=== PATIENT | male | born 1950 | race Caucasian/White ===

== ENCOUNTER 2019-01-21 08:50 | Day surgery (SDC) | payer OTHER ==
[2019-01-20 13:36] VITALS: BMI 29.0
[2019-01-21] MEDS ORDERED: MIDAZOLAM HCL 2 MG/2 ML SINGLE DOSE VIAL ONE (10:39)
[2019-01-21] MEDS ORDERED: LIDOCAINE HCL/PF 2% SDV 5ML VIAL ONE (10:39)
[2019-01-21] MEDS ORDERED: ceFAZolin SODIUM 1 GM VIAL ONE (10:40)
[2019-01-21] MEDS ORDERED: SODIUM CHLORIDE 0.9% P/F 10 ML VIAL IJ ONE (10:40)
[2019-01-21] MEDS ORDERED: HYDROmorphone HCl 2 MG/ML VIAL IM ONE (10:44)
[2019-01-21] MEDS ORDERED: ACETAMINOPHEN 325 MG TABLET (FP) PO PRN (10:44)
[2019-01-21] MEDS ORDERED: ePHEDrine SULFATE 50 MG/1 ML AMPULE ONE (10:55)
[2019-01-21] MEDS ORDERED: ESMOLOL HCL 100,000 MCG/10 ML VIAL ONE (10:58)
[2019-01-21] MEDS ORDERED: ceFAZolin SODIUM 1 GM VIAL IVPB ONE (11:03)
--- NOTE | 2019-01-21 11:06 | HP ---
DATE OF ADMISSION: 01/21/2019 DATE OF DICTATION: 01/21/2019 CHIEF COMPLAINT: Patient is a 68-year-old male with history of bilateral scrotal hydroceles. He also has prostatism including frequency, urgency, nocturia, and feelings of incomplete bladder emptying. He underwent a prostate biopsy in 2011 which was benign. Patient does have history of high blood pressure. Also underwent an inguinal hernia repair 10 years earlier. He denies any ethanolism, tobacco, or any allergies. He states that he has painful erections due to bowing of the penis during erection. He also has a tight penile foreskin with evidence of vitiligo and balanitis xerotica obliterans. PHYSICAL EXAMINATION: General: Physical exam revealed a well-developed adult male. Abdomen: Soft. There was no CVA tenderness. Genitourinary: Genitalia revealed bilateral tense scrotal hydroceles. Spermatic cords were isolated in the groin and were within normal limits. Phallus revealed a dry vitiligo foreskin with a scarred, tight frenulum causing a chordee during erection. Patient's prostate was 3+ and slightly firm. Extremities: His extremities revealed full range of motion with no cyanosis, clubbing, or edema. LABORATORY: The patient's PSA as of December 18, 2018, was 9.47. BUN and creatinine were 16/1.1. His testosterone was 226. Urinalysis was positive for blood. IMPRESSION: Impression at present is severe prostatism, phimosis, penile chordee, and balanitis xerotica obliterans, and bilateral tense, tender hydroceles. PLAN: Penoplasty, circumcision, and cystoscopy. Patient will undergo bilateral hemicolectomies at a later date. He is also scheduled to undergo a transrectal ultrasound as well as and ultrasound-guided biopsy. Will follow. Jose [id number]
[2019-01-21] MEDS ORDERED: LIDOCAINE HCL 1%, 10 MG/ML (20ML VIAL) NR ONE (11:09)
[2019-01-21] MEDS ORDERED: BUPIVACAINE HCL/PF (5 MG/ML) 30 ML VIAL IJ ONE (11:09)
[2019-01-21] MEDS ORDERED: BUPIVACAINE HCL/PF 0.5% (5MG/ML) 10 ML VIAL ONE (11:10)
--- NOTE | 2019-01-21 12:02 | OP ---
Operative Note - Note: Operative Date: 01/21/19 Pre-Operative Diagnosis: phimosis, penile chordee, priyanka. testis hydroceles, bph with luts Operation: penoplasty circ. priyanka. hydrocele aspirations and cystoscopy Findings: phimosis penile chordee and bph with [place] and luts priyanka. tense hydroceles Post-Operative Diagnosis: Same as Pre-op Surgeon: Odalys Duarte Anesthesia: General, Local Specimens Removed: scar tissue, penile forskin and hydrocele fluid Estimated Blood Loss (mls): 10 Drains & Tubes with Location: bridger Drains, Volume Out (mls): 0 Blood Volume Replaced (mls): 0 Fluid Volume Replaced (mls): 0 Operative Report Dictated: Yes
[2019-01-21] MEDS ORDERED: ONDANSETRON 4 MG/2 ML VIAL IVPUSH PRN (12:32)
[2019-01-21] MEDS ORDERED: oxyCODONE HCL 5 MG TABLET PO PRN (12:32)
[2019-01-21] MEDS ORDERED: LACTATED RINGERS SOLUTION 1,000 ML IV SCH (12:45)
--- NOTE | 2019-01-21 14:24 | OP ---
DATE OF OPERATION: 01/21/2019 SURGEON: Antonia Mosher MD PREOPERATIVE DIAGNOSIS: Penile chordee, penile phimosis, balanitis xerotica obliterans, bilateral scrotal hydrocele, and benign prostatic hypertrophy with lower urinary tract symptoms. OPERATIVE PROCEDURE: Cystourethroscopy, penoplasty circumcision, and bilateral hydrocele aspiration. ANESTHESIA: General. OPERATIVE REPORT: Under above stated anesthesia, patient was prepped and draped in the usual sterile manner. He was placed in the dorsal lithotomy position. Cystoscopy revealed a normal anterior urethra. Prostatic urethra revealed trilobar hypertrophy of the prostate. There was lateral lobe kissing. The bladder revealed a grade 3 trabeculation. No lesions or calculi were seen. Efflux of urine was clear. The bladder was emptied, the scope was removed. The base of the penis was blocked with 0.25% Marcaine for long-term analgesia. An artificial erection was also created by injecting 100 mL of normal saline into the base of the right corpora via a 25-gauge Angiocath. This revealed bowing of the penis with a 30-degree dorsal chordee. Therefore, a subcoronal incision was made 1 cm below the ko. This was carried down through skin and subcutaneous tissue. The entire penis was degloved using sharp and blunt dissection. The bulbous and pendulous urethra were then lysed off the corpora spongiosum using a Murphy scissors. There appeared to be dysgenetic Colles and dartos fascia. After the entire urethra was lysed off, there appeared to be enough urethral length to reanastomose the tip of the distal urethra to the fossa navicularis. This was performed using 6-0 Vicryl suture ligatures. A repeat artificial erection revealed straightening of the penis. Therefore, excess foreskin was excised in a circumferential manner. Hemostasis from the glans was approximated to hemostasis from the shaft using 5-0 Vicryl suture ligatures. Pressure dressing was applied. No active bleeding was noted. Then, 18-inch Angiocaths were placed into the right and left hydroceles after positive transillumination, approximately 600 mL of cloudy fluid was drained. This was sent for cytology and C& S. Pressure dressing was applied to the scrotum for 20 minutes. Scrotal support with pressure dressing was also kept on the scrotum. Coban was placed on the penile shaft for hemostasis. The patient tolerated the procedure well. He returned to the recovery room in good condition. ANTONIA MOSHER M.D. [id number]
[2019-01-21 14:30] VITALS: BP 119/72; PULSE 72; TEMP 97.4
[2019-01-21] MEDS ORDERED: CEPHALEXIN MONOHYDRATE 500 MG CAPSULE (UD) PO SCH ×2 (14:30→22:00)
--- NOTE | 2019-01-24 15:03 | PATH ---
Cytology Non-Gynecological Report Patient Name: RODRIGUEZ CAIN [facility]. Rec. #: [id number] /Age/Gender: 1950 (Age: 68) / M Account: [id number] Location: [facility] Taken: 01/21/2019 Received: 01/21/2019 Reported: 01/24/2019 Physicians: Odalys Duarte M.D. Specimen(s) Received HYDROCELE ASPIRATION Clinical History Hydrocele Final Diagnosis 'HYDROCELE' ASPIRATION FOR CYTOLOGY: SATISFACTORY FOR EVALUATION. NEGATIVE FOR MALIGNANCY. NUMEROUS SPERMATOZOA IN A BACKGROUND OF PROTEINACEOUS MATERIAL/DEBRIS CONSISTENT WITH SPERMATOCELE. Electronically Signed Wen Hill M.D. Gross Description Approximately 20 cc of yellow fluid received fresh. One cytofunnel prepared and Pap stained. One cellblock prepared.
--- NOTE | 2019-01-24 15:28 | PATH ---
Surgical Pathology Report Patient Name: RODRIGUEZ CAIN Med. Rec. #: [id number] /Age/Gender: 1950 (Age: 68) / M Account: [id number] Location: [facility] Taken: 01/20/2019 Received: 01/21/2019 Reported: 01/24/2019 Physicians: Odalys Duarte M.D. Specimen(s) Received FORESKIN Clinical History Phimosis, balanitis Final Diagnosis FOR[place], EXCISION: GENITAL SKIN WITH FOCAL INTERCELLULAR EDEMA, FOCAL SPONGIOSIS, MODERATE LYMPHOPLASMACYTIC INFILTRATE, AND HYPERKERATOSIS, CONSISTENT WITH LICHEN SCLEROSUS (BALANITIS XEROTICA OBLITERANS). Comment: See concurrent cytology [id number]. Electronically Signed Wen Hill M.D. Gross Description Received in formalin labeled "foreskin," is a 6.5 x 2.1 x 0.4 cm ruiz-brown portion of wrinkled skin, consistent with foreskin. [employer] sections are submitted in one cassette. /01/21/[address] [facility]
== END 2019-01-21 14:52 | disposition home or self-care (01) ==
LOC: JASU-SURG 08:50
PROVIDERS: ATTEND Urology
PROC: 0VTTXZZ Resection of Prepuce, External Approach (ICD-10-PCS; principal; 2019-01-21 10:30)
PROC: 0VNS0ZZ Release Penis, Open Approach (ICD-10-PCS; 2019-01-21 10:30)
DX: N47.1 Phimosis (principal); N48.89 Other specified disorders of penis; N48.0 Leukoplakia of penis; N43.2 Other hydrocele; N40.1 Benign prostatic hyperplasia with lower urinary tract symptoms
CPT/HCPCS: 88108; 88304-TC; 88305-TC; 94760

== ENCOUNTER 2019-07-16 12:48 | Inpatient (IN) | payer OTHER ==
--- NOTE | 2019-07-16 13:09 | PDOC ---
Attending Attestation - Resident Resident Name: Nick Hercules - ED Attending Attestation I have performed the following: I have examined & evaluated the patient, The case was reviewed & discussed with the resident, I agree w/resident's findings & plan, Exceptions are as noted - HPI HPI: 07/16/19 13:34 68yo male with recent dx of lung mass with poss mets. Pt had xray at the end of May which showed a R hilar lung mass with adenopathy. A PET scan and CT scan has shown compression of svc and mets in the lungs with pleural based mass. Pt has seen Dr. Chad Duarte, Dr. Black, and Dr. Gomez. Pt is scheduled for bx of . Pt today with increasing sob, cough- some mild production and low grade temps- last night temp 100.2. Pt denies pleuritic cp. Pt with LE swelling , but DVT study from 2 days ago was neg. Pt also with LE swelling/anasarca- suspect secondary to ca dx. No abd pain. No n/v/d. No dysuria. - Physicial Exam PE: 07/16/19 13:36 Gen: aaox3, tachypnic, tachy lungs: coarse bs b/l heart: +s1s2 tachy abd: soft, nt/nd +bs ext: 3+pitting edema to LE - Medical Decision Making 07/16/19 13:37 a/p: 68yo male with newly dx R lung mass -prior ct showed a post obtructive pna- pt was treated earlier this month with azithromycin -suspect pna again -pt pulse ox improved w 2L nc -pt received flu shot this am -recent duplex ultrasound 2 days ago was neg for dvt -will send labs, cultures, ekg, cxr -pt will need admission for resp distress, sirs, poss pna, sob, edema 07/16/19 14:30 cxr shows R sided pna suspect post - obstructive pna will order abx will admit call placed to dr. duarte wbc not elevated 07/16/19 14:30 low albumin may be cause of swelling 07/16/19 15:01 resident discussed the case with Dr. Duarte who accepts pt to service Heart Score/ECG Review - ECG Intrepretation Comment:: 07/16/19 13:15 sinus tach at 116, nl axis, nl interval, q waves septally which are age indeterminate, no acute st/t wave findings
[2019-07-16] MEDS ORDERED: SODIUM CHLORIDE IV ONE (13:13)
--- NOTE | 2019-07-16 13:13 | PDOC ---
History of Present Illness - General Chief Complaint: Shortness of Breath Stated Complaint: SENT BY DR MOSHER/DIFFICULTY BREATHING Time Seen by Provider: 07/16/19 13:01 History Source: Patient Exam Limitations: No Limitations, Language Barrier - History of Present Illness Initial Comments: Earl Obrien is a 68 yo M w a hx of a large lung mass not officially biopsied or diagnosed as lung cancer and BPH presents to the [facility] er from Dr. Chad Dunham's office because he has been extremely short of breath and is having difficulty breathing. The patient has been undergoing a workup for a probable lung cancer with metastasis. He has had multiple CT and PET scans following his condition. He is set to have a biopsy performed on Thursday. Here in the ER today the patient is acutely short of breath, has a fever, increased cough and sputum production, and is having a hard time moving air into his lungs. Per the family he has been getting much weaker, feels lethargic , cannot eat well, is not sleeping well, and has been losing weight. Patient is also concerned that his ankles and wrists have been swelling up a significant amountin the past [address] notes that the mass is compressing on his superior vena cava which is likely causing the patient to experience SVC syndrome and anasarca. PCP: Dr. Chad Mosher Onc: Dr. Gomez PSH: Penoplasty circ. priyanka. hydrocele aspirations and cystoscopy Social Hx: Former smoke 35+ years ago. Denies current toxic habits Allergies: NKA, NKDA Past History - Past Medical History Allergies/Adverse Reactions: Allergies Allergy/AdvReac Type Severity Reaction Status Date / Time No Known Allergies Allergy Verified 07/16/19 14:12 Home Medications: Ambulatory Orders Metoprolol Succinate 25 mg PO DAILY 01/21/19 Albuterol Sulfate [Proair Hfa] 2 neb IH Q4H 07/16/19 Promethazine HCl [Phenergan Liquid -] 12.5 mg PO Q4H 07/16/19 Cancer: Yes (rt.lung) COPD: No HTN: Yes - Surgical History Abdominal Surgery: Yes (hernia r inguinal) - Immunization History Immunization Up to Date: No - Psycho Social/Smoking Cessation Hx Smoking Status: No Smoking History: Unknown if ever smoked Have you smoked in the past 12 months: No Number of Cigarettes Smoked Daily: 0 Cigars Per Day: 0 Information on smoking cessation initiated: No Hx Alcohol Use: No Drug/Substance Use Hx: No Substance Use Type: None Hx Substance Use Treatment: No Review of Systems - Review of Systems Able to Perform ROS?: Yes Comments:: CONSTITUTIONAL: Present: fever, chills, diaphoresis, generalized weakness, malaise, loss of appetite HEENT: Absent: rhinorrhea, nasal congestion, throat pain, throat swelling, difficulty swallowing, mouth swelling, ear pain, eye pain, visual Changes CARDIOVASCULAR: Present: Chest pain, peripheral edema Absent: syncope, palpitations, irregular heart rate, lightheadedness RESPIRATORY: Present: cough, shortness of breath, dyspnea with exertion, orthopnea, wheezing , hemoptysis Absent: stridor GASTROINTESTINAL: Present: Nausea, vomiting Absent: abdominal pain, abdominal distension, diarrhea, constipation, melena, hematochezia GENITOURINARY: Present: hesitancy Absent: dysuria, frequency, urgency, hematuria, flank pain, genital pain MUSCULOSKELETAL: Absent: myalgia, arthralgia, joint swelling SKIN: Present: Pallor Absent: rash, itching, HEMATOLOGIC/IMMUNOLOGIC: Present: frequent infections Absent: easy bleeding, easy bruising, lymphadenopathy ENDOCRINE: Present: unexplained weight gain, unexplained weight loss Absent: heat intolerance, cold intolerance NEUROLOGIC: Absent: headache, focal weakness or paresthesias, dizziness, unsteady gait, seizure, mental status changes, bladder or bowel incontinence PSYCHIATRIC: Absent: anxiety, depression, suicidal or homicidal ideation, hallucinations. *Physical Exam - Vital Signs Last Vital Signs Temp Pulse Resp BP Pulse Ox 99.9 F H 115 H 16 135/63 90 L 07/16/19 12:52 07/16/19 12:52 07/16/19 12:52 07/16/19 12:52 07/16/19 12:52 - Physical Exam Comments: GENERAL: Patient is pale, volume overloaded in anasarca. Awake and alert. Moderate acute distress. HEENT: + conjunctival pallor. Normocephalic, atraumatic. PERRLA, EOMI. NECK: Supple. Full ROM. CARDIOVASCULAR: Tachycardic rate and regular rhythm. No murmurs, rubs, or gallops. Distal pulses are 2+ and symmetric. PULMONARY: Clear evidence of respiratory distress. Decreased lung sounds on the right. focal crackles on the left. No wheezing or rhonchi. ABDOMINAL: Soft. Non-tender. Non-distended. No rebound or guarding. No organomegaly. Normoactive bowel sounds. MUSCULOSKELETAL Normal range of motion at all joints. No bony deformities or tenderness. No CVA tenderness. EXTREMITIES: 3+ pitting edema in ankles. 2+ edema in wrists. No cyanosis. No clubbing. No calf tenderness. SKIN: Warm and dry. Normal capillary refill. No rashes. No jaundice. NEUROLOGICAL: Alert, awake, appropriate. Cranial nerves 2-12 intact. No deficits to light touch in face, upper extremities and lower extremities. No motor deficits in the in face, upper extremities and lower extremities. Normal speech. Gait is normal without ataxia. PSYCHIATRIC: Cooperative. Good eye contact. Appropriate mood and affect. ED Treatment Course - LABORATORY CBC & Chemistry Diagram: 07/16/19 13:45 07/16/19 13:45 - RADIOLOGY Radiograph Interpretation: CXR: Chest: Shortness of breath Single AP view of the chest is submitted. Since the prior study of 06/16/2019 the right hilar mass is hidden by infiltrate and fluid. The left lung is clear. There is a prominent mediastinum. Correlation recommended. Medical Decision Making - Medical Decision Making Earl Obrien is a 68 yo M w a hx of a large lung mass not officially biopsied or diagnosed as lung cancer and BPH presents to the [facility] er from Dr. Chad Dunham's office because he has been extremely short of breath and is having difficulty breathing. The patient has been undergoing a workup for a probable lung cancer with metastasis. He has had multiple CT and PET scans following his condition. He is set to have a biopsy performed on Thursday. Here in the ER today the patient is acutely short of breath, has a fever, increased cough and sputum production, and is having a hard time moving air into his lungs. Per the family he has been getting much weaker, feels lethargic , cannot eat well, is not sleeping well, and has been losing weight. Patient is also concerned that his ankles and wrists have been swelling up a significant amountin the past [address] notes that the mass is compressing on his superior vena cava which is likely causing the patient to experience SVC syndrome and anasarca. Vital Signs Temp Pulse Resp BP Pulse Ox 99.9 F H 116 H 16 135/63 90 L 07/16/19 12:52 07/16/19 13:22 07/16/19 12:52 07/16/19 12:52 07/16/19 12:52 DDx IBNLT: PNA, PE, lung cancer, SVC syndrome, Sepsis, dehydration, electrolyte/ metabolic disturbance Plan: Labs, Urine, EKG, CXR, +/- CTA PE, Admit to hospital Labs: Low albumin of 2.6. Lactic acidosis of 3.0 Urine: clean EKG: Sinus tach of 116, narrow complexes, normal axis, no hypertrophy, no ST elevations or depressions, no abnormal TWI's, no Q waves, QTc 408, [place] 152 CXR: Chest: Shortness of breath Single AP view of the chest is submitted. Since the prior study of 06/16/2019 the right hilar mass is hidden by infiltrate and fluid. The left lung is clear. There is a prominent mediastinum. Correlation recommended. Disposition: Admit to hospital - Spoke with Dr. Mosher who accepts patient for admission - Dr. Mosher requests this patient be admitted to the ICU over the weekend. I have said I do not believe this patient's airway is threatened and he does not require pressers at the present time. I have told Dr. Mosher that I will call the ICU and ask them to evaluate the patient for ICU admission. If the ICU does not accept the patient he will goto Telemetry. Discharge - Discharge Information Problems reviewed: Yes Clinical Impression/Diagnosis: Respiratory distress, Malignancy Sepsis Qualifiers: Sepsis type: sepsis due to unspecified organism Sepsis acute organ dysfunction status: unspecified Qualified Code(s): A41.9 - Sepsis, unspecified organism Condition: Fair - Admission Yes - Follow up/Referral - Patient Discharge Instructions - Post Discharge Activity
[2019-07-16] MEDS ORDERED: ALBUTEROL SO4 2.5/IPRATROPIUM 0.5 INH SOL 3 ML VIAL.NEB. NEB ONE ×3 (13:14→13:58)
[2019-07-16] MEDS ORDERED: ACETAMINOPHEN 325 MG TABLET (FP) PO ONE (13:15)
[2019-07-16] MEDS ORDERED: ACETAMINOPHEN 325 MG TABLET (FP) ONE (13:50)
[2019-07-16] MEDS ORDERED: SODIUM CHLORIDE 0.9% 500 ML INFUS.BAG IV ONE (13:50)
[2019-07-16 13:58] LABS: BASO % 0.5 % (0-2.0); EOS % 0.4 % (0-4.5); HEMATOCRIT 35.7 % (35.4-49); HEMOGLOBIN 11.7 GM/dL (11.7-16.9); MCH 28.5 pg (25.7-33.7); MCHC 32.6 g/dl (32.0-35.9); MEAN CELL VOLUME 87.3 fl (80-96); MEAN PLT VOLUME 7.3 fl (7.5-11.1); NEUT % 69.1 % (42.8-82.8); PLATELET COUNT 380 K/MM3 (134-434); RBC 4.09 M/mm3 (4.00-5.60); RDW 16.9 % (11.9-15.9); WHITE BLOOD COUNT 9.3 K/mm3 (4.0-10.0)
[2019-07-16 14:00] LABS: VENOUS PC02 42.7 mmHg (38-52); VENOUS PH 7.39 (7.31-7.41)
[2019-07-16 14:04] LABS: VENOUS PO2 < 49 mmHg (28-48)
[2019-07-16 14:11] LABS: INR 1.19 (0.83-1.09); PROTHROMBIN TIME (PATIENT) 14.1 SEC (9.7-13.0)
[2019-07-16 14:14] LABS: ACTIVATED PTT 35.8 SECONDS (25.2-36.5)
[2019-07-16 14:26] LABS: ALBUMIN 2.6 g/dl (3.4-5.0); BILIRUBIN,TOTAL 0.6 mg/dL (0.2-1); BLOOD UREA NITROGEN 17.7 mg/dL (7-18); CALCIUM 8.9 mg/dL (8.5-10.1); N-TERMINAL BNP 131.9 pg/ml (5-125); POTASSIUM 4.2 mmol/L (3.5-5.1); TOT PROT 6.4 g/dl (6.4-8.2)
[2019-07-16] MEDS ORDERED: VANCOMYCIN 1,000 MG in DEXTROSE 5%-WATER - 250 ML IVPB ONE (14:32)
[2019-07-16] MEDS ORDERED: PIPERACILLIN/TAZOB 4.5 GM 4.5 GM in DEXTROSE 5%-WATER 100 ML IVPB ONE (14:32)
[2019-07-16 15:01] LABS: HYALINE CASTS 57 /lpf (0-8); PH,URINE 5.5 (5.0-8.0); URINE APPEARANCE CLOUDY; URINE BILIRUBIN 1+ (NEGATIVE); URINE COLOR DK YELLOW; URINE GLUCOSE (UA) NEGATIVE (NEGATIVE); URINE KETONE TRACE (NEGATIVE); URINE LEUK ESTERASE NEGATIVE (NEGATIVE); URINE NITRITE NEGATIVE (NEGATIVE); URINE PROTEIN 1+ (NEGATIVE); URINE WBC 3 /hpf (0-5)
--- NOTE | 2019-07-16 15:21 | CONSULT ---
Consultation: REQUESTING PROVIDER: CONSULT REQUEST: We have been asked to medically evaluate this patient for Acute respiratory distress in the setting of pneumonia. HISTORY OF PRESENT ILLNESS: This is a 68 y/o M with a past medical hx significant for HLD, AF(on ASA), a suspected lung mass not officially biopsied or diagnosed as lung cancer, and BPH who presented to the [facility] ER from Dr. Chad Duarte's office due to extreme shortness of breath. The patient has been undergoing a workup for probable lung cancer with metastasis. He has had multiple CT and PET scans following his condition. He is set to have a biopsy performed on Thursday by Dr. Butler. In the ER today, the patient was acutely short of breath, had a low grade temp ( 99.9), productive cough of yellow sputum, and was having a hard time moving air into his lungs. Upon my evaluation later on the floors, pt notable for having a headache due to the cough. Pt denies any hemoptysis, chest pain, fevers, chills , night sweats, nausea, vomiting, abdominal pain. Patient is an ex smoker of 30 yrs but quit 15 yrs ago. Pt admits to noticing some mold in his house recently but no change in detergent use or recent new environmental exposure. Pt denies any history of lung disease. Per the family, he has been getting much weaker, feels lethargic, cannot eat well, is not sleeping well, and has been losing weight. Patient is also concerned that his ankles and wrists have been swelling up a significant amount in the past 2 weeks. 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 REVIEW OF SYSTEMS: negative except as above. PHYSICAL EXAMINATION Vital Signs - 24 hr 07/16/19 07/16/19 12:52 13:22 Temperature 99.9 F H Pulse Rate 115 H 116 H Respiratory 16 Rate Blood Pressure 135/63 O2 Sat by Pulse 90 L Oximetry (%) GENERAL: Awake, alert, and fully oriented, in no acute distress satting 96% on 3L NC NECK: supple without JVD, or carotid bruit on exam LUNGS: Breath sounds reduced anteriorly, upon posterior lung auscultation diffuse wheezing appreciated b/l worse in upper more than lower lobes, w/o accessory muscle use, no ronchi, or stridor appreciated. HEART: tachycardic, regular rythym, normal S1 and S2 without murmur, rub or gallop. ABDOMEN: Soft, nontender, not distended, normoactive bowel sounds, no guarding, no rebound. UPPER EXTREMITIES: 2+ pulses, warm, well-perfused. No cyanosis. No clubbing. 1+ peripheral edema. LOWER EXTREMITIES: warm, well-perfused. 3+ peripheral edema. PSYCHIATRIC: Cooperative. Good eye contact. Appropriate mood and affect. SKIN: Warm, dry, no rashes or lesions noted. Laboratory Results - last 24 hr 07/16/19 07/16/19 07/16/19 13:45 13:45 13:45 WBC 9.3 RBC 4.09 Hgb 11.7 Hct 35.7 MCV 87.3 MCH 28.5 MCHC 32.6 RDW 16.9 H Plt Count 380 MPV 7.3 L Absolute Neuts (auto) 6.5 Neutrophils % 69.1 Lymphocytes % 15.0 D Monocytes % 15.0 H Eosinophils % 0.4 D Basophils % 0.5 Nucleated RBC % 0 PT with INR 14.10 H INR 1.19 H PTT (Actin FS) 35.8 VBG pH POC VBG pCO2 POC VBG pO2 VBG HCO3 VBG O2 Sat (Glenn) VBG Base Excess Sodium Potassium Chloride Carbon Dioxide Anion Gap BUN Creatinine Est GFR (CKD-EPI)AfAm Est GFR (CKD-EPI)NonAf Random Glucose Lactic Acid Calcium Total Bilirubin AST ALT Alkaline Phosphatase Troponin I < 0.02 B-Natriuretic Peptide Total Protein Albumin Urine Color Urine Appearance Urine pH Ur Specific Drift Urine Protein Urine Glucose (UA) Urine Ketones Urine Blood Urine Nitrite Urine Bilirubin Urine Urobilinogen Ur Leukocyte Esterase Urine WBC (Auto) Urine Casts (Auto) U Epithel Cells (Auto) Urine Bacteria (Auto) Blood Type Antibody Screen 07/16/19 07/16/19 07/16/19 13:45 13:45 13:45 WBC RBC Hgb Hct MCV MCH MCHC RDW Plt Count MPV Absolute Neuts (auto) Neutrophils % Lymphocytes % Monocytes % Eosinophils % Basophils % Nucleated RBC % PT with INR INR PTT (Actin FS) VBG pH POC VBG pCO2 POC VBG pO2 VBG HCO3 VBG O2 Sat (Glenn) VBG Base Excess Sodium 136 Potassium 4.2 Chloride 101 Carbon Dioxide 25 Anion Gap 10 BUN 17.7 Creatinine 1.0 Est GFR (CKD-EPI)AfAm 88.61 Est GFR (CKD-EPI)NonAf 76.45 Random Glucose 95 Lactic Acid 3.0 H* Calcium 8.9 Total Bilirubin 0.6 AST 18 ALT 21 Alkaline Phosphatase 118 H Troponin I B-Natriuretic Peptide 131.9 H Total Protein 6.4 Albumin 2.6 L Urine Color Urine Appearance Urine pH Ur Specific Drift Urine Protein Urine Glucose (UA) Urine Ketones Urine Blood Urine Nitrite Urine Bilirubin Urine Urobilinogen Ur Leukocyte Esterase Urine WBC (Auto) Urine Casts (Auto) U Epithel Cells (Auto) Urine Bacteria (Auto) Blood Type O POSITIVE Antibody Screen Negative 07/16/19 07/16/19 13:45 14:45 WBC RBC Hgb Hct MCV MCH MCHC RDW Plt Count MPV Absolute Neuts (auto) Neutrophils % Lymphocytes % Monocytes % Eosinophils % Basophils % Nucleated RBC % PT with INR INR PTT (Actin FS) VBG pH 7.39 POC VBG pCO2 42.7 POC VBG pO2 < 49 H VBG HCO3 24.9 VBG O2 Sat (Glenn) 72.8 VBG Base Excess 0.3 Sodium Potassium Chloride Carbon Dioxide Anion Gap BUN Creatinine Est GFR (CKD-EPI)AfAm Est GFR (CKD-EPI)NonAf Random Glucose Lactic Acid Calcium Total Bilirubin AST ALT Alkaline Phosphatase Troponin I B-Natriuretic Peptide Total Protein Albumin Urine Color Dk yellow Urine Appearance Cloudy Urine pH 5.5 Ur Specific Drift 1.034 Urine Protein 1+ H Urine Glucose (UA) Negative Urine Ketones Trace H Urine Blood Negative Urine Nitrite Negative Urine Bilirubin 1+ H Urine Urobilinogen 1.0 Ur Leukocyte Esterase Negative Urine WBC (Auto) 3 Urine Casts (Auto) 57 U Epithel Cells (Auto) 3.0 Urine Bacteria (Auto) 1.0 Blood Type Antibody Screen Active Medications Generic Name Dose Route Start Last Admin Trade Name Freq PRN Reason Stop Dose Admin Vancomycin HCl 1,000 mg/ 250 mls @ 166.667 mls/hr 07/16/19 14:32 Dextrose IVPB 07/16/19 16:01 ONCE ONE Protocol ASSESSMENT/PLAN: CT chest (06/22/19): Probable primary focus of lung carcinoma involving the pleura in the NARAYAN anterolaterally. Multiple metastatic nodules in the lung. Partial RML atelectasis and probable post obstructive pneumonia in the right lung. Extensive mediastinal and right hilar adenopathy with the right hilar mass invading the mediastinum. Significant impingement on the SVC without obvious invasion or obstruction. Encasement of branches of the right pulmonary artery and narrowing/occlusion of right-sided bronchi. Small right pleural effusion. This is a 68 y/o M with a past medical history significant for HLD, AF(on ASA), a suspected lung mass not officially biopsied or diagnosed as lung cancer, and BPH who presents to the [facility] ER from Dr. Chad Duarte's office due to extreme shortness of breath. Neuro - AO X 4 - neurologically intact Pulmonary -> PNA/Lung Mass - CT chest showing probable SVC syndrome due to Rt sided lung mass/enlarged mediastinal LN compression. - CXR- rt hilar mass hidden by fluid/infiltrate and shows widened mediastinum. - pt airway not compromised, continue NC as pt is satting mid to upper 90's on 3L. - pt not on home O2 - Inhaled bronchodilators (Ventolin HFA, albuterol/ipratrop duoneb, ) - continue vancomycin, zosyn for probable post-obstructive PNA - pt not septic at this time as their is no wbc, low grade temp - would continue assessing CBC for any signs of wbc - BC's, urine cx, sputum culture - repeat Lactate until below 2. Cardio -> Hx of AF/HLD - c/w crestor 20 - anasarca likely 2/2 hypoalbuminemia from malnourishment - continue holding ASA for IR procedure thursday - Dr. Linn consulted, recs appreciated - monitor on tele for any events. - toprol XL 20 po for rate control Dispo: Patient does not require ICU management at this time, but we would be happy to come and re-evaluate at any time if needed. Thank you for this consultative opportunity. Visit type - Emergency Visit Emergency Visit: Yes ED Registration Date: 07/16/19 Care time: The patient presented to the Emergency Department on the above date and was hospitalized for further evaluation of their emergent condition. - New Patient This patient is new to me today: Yes Date on this admission: 07/16/19 - Critical Care Critical Care patient: Yes Total Critical Care Time (in minutes): 35 Critical Care Statement: The care of this patient involved high complexity decision making to prevent further life threatening deterioration of the patient 's condition and/or to evaluate & treat vital organ system(s) failure or risk of failure.
[2019-07-16] MEDS ORDERED: VANCOMYCIN 1 GRAM (PRE-DOCKED) 1,000 MG/250 ML BAG IVPB ONE ×2 (15:23→15:24)
[2019-07-16] MEDS ORDERED: PIPERACILLIN/TAZOB 4.5 GM 4.5 GM/100 ML BAG IVPB ONE (15:23)
[2019-07-16] MEDS ORDERED: VANCOMYCIN 500 MG VIAL (RESTRICTED TO ID ONLY) ONE (15:25)
[2019-07-16 15:45] LABS: URINE RBC 6.7 /hpf (0-4)
[2019-07-16] MEDS ORDERED: ALBUTEROL SO4 8 GM HFA INHALER IH PRN (20:09)
[2019-07-16] MEDS ORDERED: ALBUTEROL SO4 2.5/IPRATROPIUM 0.5 INH SOL 3 ML VIAL.NEB. NEB PRN (20:09)
[2019-07-16] MEDS ORDERED: PNEUMOC 13-VAL CONJ-DIP CRM/PF 0.5 ML DISP.SYRIN IM ONE (21:00)
[2019-07-16] MEDS: metoPROLOL SUCCINATE 25 MG TAB.SR.24H (FP) PO SCH (21:07)
[2019-07-16] MEDS: ROSUVASTATIN CA 20 MG TABLET (FP) PO SCH (21:07)
[2019-07-17] MEDS: guaiFENesin/CODEINE 5 ML UNIT-DOSE CUPS PO PRN ×5 (00:13→21:37)
--- NOTE | 2019-07-17 08:28 | HP ---
Admitting History and Physical - Primary Care Physician PCP: christine salas sr - Admission Chief Complaint: presented to my office with sob diff brething weak low grade temp lethargic since 3 days ago no apetite also loss wt ? failing to thrive History Source: Patient, Family Member Limitations to Obtaining History: Poor Historian, Other (diffulty comprehending) - Past Medical History Cardiovascular: Yes: AFIB Renal/: Yes: BPH, UTI Musculoskeletal: Yes: Osteoarthritis - Past Surgical History Past Surgical History: Yes: None - Smoking History Smoking history: Unknown if ever smoked Have you smoked in the past 12 months: No Aproximately how many cigarettes per day: 0 - Alcohol/Substance Use Hx Alcohol Use: No Home Medications - Allergies Allergies/Adverse Reactions: Allergies Allergy/AdvReac Type Severity Reaction Status Date / Time No Known Allergies Allergy Verified 07/16/19 14:12 - Home Medications Home Medications: Ambulatory Orders Metoprolol Succinate 25 mg PO DAILY 01/21/19 Albuterol Sulfate [Proair Hfa] 2 neb IH Q4H 07/16/19 Promethazine HCl [Phenergan Liquid -] 12.5 mg PO Q4H 07/16/19 Family Medical History Family History: Unremarkable Review of Systems - Review of Systems Constitutional: reports: Lethargy, Loss of Appetite, Malaise, Weakness Eyes: reports: No Symptoms HENT: reports: No Symptoms Neck: reports: No Symptoms Cardiovascular: reports: No Symptoms Respiratory: reports: Cough, SOB Gastrointestinal: reports: No Symptoms Genitourinary: reports: No Symptoms Breasts: reports: No Symptoms Reported Integumentary: reports: No Symptoms Neurological: reports: Headache Endocrine: reports: No Symptoms Hematology/Lymphatic: reports: No Symptoms Psychiatric: reports: No Symptoms Physical Examination Vital Signs: Vital Signs Temperature 98.4 F 07/17/19 06:42 Pulse Rate 108 H 07/17/19 06:42 Respiratory Rate 18 07/17/19 06:42 Blood Pressure 133/66 07/17/19 06:42 O2 Sat by Pulse Oximetry (%) 92 L 07/16/19 21:00 Constitutional: Yes: Mild Distress Eyes: Yes: WNL HENT: Yes: WNL Neck: Yes: WNL Cardiovascular: Yes: Pulse Irregular Respiratory: Yes: Diminished, Dullness, Poor Air Entry, SOB Gastrointestinal: Yes: WNL ...Rectal Exam: Yes: Deferred Renal/: Yes: WNL Breast(s): Yes: WNL Musculoskeletal: Yes: Other (priyanka knee pain scale 3) Extremities: Yes: WNL Edema: Yes Edema: LUE: 1+, RUE: 1+, LLE: 3+, RLE: 3+ Peripheral Pulses WNL: Yes Integumentary: Yes: WNL Neurological: Yes: Weakness ...Motor Strength: WNL Psychiatric: Yes: WNL Labs: CBC, BMP 07/16/19 13:45 07/16/19 13:45 Assessment/Plan lung ca w mets? rt supraclavicular mass pnd bx thursday w dr hartley ? pleural eff w ? underling pneumonia? mass rt hilar region ? atbx o2 2 l n/c neb tx prn card and pulmonary consulted no asa or plavix ? may start hepatin for afibb ct chest done will get head abd pelvic to look for mets due to headace no help w meds as out pt and to see if third spacing leg edema? echo also cont all other tx as is
[2019-07-17] MEDS ORDERED: FUROSEMIDE 40 MG/4 ML INJECTABLE VIAL IVPUSH ONE (08:45)
[2019-07-17] MEDS: metoPROLOL SUCCINATE 25 MG TAB.SR.24H (FP) PO SCH (09:20)
[2019-07-17] MEDS: TAMSULOSIN HCL 0.4 MG CAP PO SCH (09:20)
[2019-07-17 09:28] LABS: BASO % 0.5 % (0-2.0); EOS % 0.5 % (0-4.5); HEMATOCRIT 32.8 % (35.4-49); LYMPH % 10.1 % (8-40); MCH 29.2 pg (25.7-33.7); MCHC 33.7 g/dl (32.0-35.9); MEAN CELL VOLUME 86.7 fl (80-96); MEAN PLT VOLUME 7.3 fl (7.5-11.1); MONO % 10.4 % (3.8-10.2); NEUT % 78.5 % (42.8-82.8); PLATELET COUNT 368 K/MM3 (134-434); RBC 3.78 M/mm3 (4.00-5.60); RDW 16.9 % (11.9-15.9); WHITE BLOOD COUNT 9.9 K/mm3 (4.0-10.0)
[2019-07-17 10:08] LABS: ALBUMIN 2.4 g/dl (3.4-5.0); BILIRUBIN,TOTAL 0.8 mg/dL (0.2-1); BLOOD UREA NITROGEN 17.3 mg/dL (7-18); CALCIUM 8.5 mg/dL (8.5-10.1); CREATININE 0.9 mg/dL (0.55-1.3); POTASSIUM 4.4 mmol/L (3.5-5.1); TOT PROT 5.9 g/dl (6.4-8.2)
--- NOTE | 2019-07-17 13:26 | PN ---
Teaching Attending Note Name of Resident: Chad Duarte ATTENDING PHYSICIAN STATEMENT I saw and evaluated the patient. I reviewed the resident's note and discussed the case with the resident. I agree with the resident's findings and plan as documented. SUBJECTIVE: Breathing better today. Still with nonproductive cough. CT chest not read yet but showing increasing size of mass as well as a new right pleural effusion. OBJECTIVE: Vital Signs Period Temp Pulse Resp BP Sys/Clifton Pulse Ox Last 24 Hr 97.8 F-99.0 F 103-116 18-22 112-144/50-71 92-96 Gen: mildly tachypneic at rest Heart: tachycardic, regular Lung: scattered rhonchi Abd: soft, nontender Ext: + edema CBC, BMP 07/17/19 09:00 07/17/19 09:00 Active Medications Albuterol Sulfate (Ventolin Hfa Inhaler -) 2 puff IH Q6H PRN PRN Reason: SHORTNESS OF BREATH Albuterol/Ipratropium (Duoneb -) 1 amp NEB Q6H PRN PRN Reason: SHORTNESS OF BREATH/WHEEZING Last Admin: 07/17/19 00:45 Dose: 1 amp Guaifenesin/Codeine Phosphate (Robitussin Ac -) 10 ml PO Q4H PRN PRN Reason: COUGH Last Admin: 07/17/19 08:38 Dose: 10 ml Metoprolol Succinate (Toprol Xl -) 25 mg PO DAILY [facility] Last Admin: 07/17/19 09:20 Dose: 25 mg Rosuvastatin Calcium (Crestor -) 20 mg PO HS [facility] Last Admin: 07/16/19 21:07 Dose: 20 mg Tamsulosin HCl (Flomax -) 0.4 mg PO DAILY@0830 [facility] Last Admin: 07/17/19 09:20 Dose: 0.4 mg Zolpidem Tartrate (Ambien -) 5 mg PO HS PRN PRN Reason: INSOMNIA ASSESSMENT AND PLAN: Likely Progressive Lung Cancer - suspect small cell lung cancer Pleural Effusion likely malignant r/o SVC syndrome Hyponatremia Lactic Acidosis Atrial Fibrillation Hyperlipidemia - would order thoracentesis for diagnosis - hold all antiplatelets - inhaled bronchodilators - oncology evaluation, will need staging - can monitor off antibiotics given absence of fevers and leukocytosis - rate control - DVT prophylaxis
--- NOTE | 2019-07-17 14:19 | CON.CARD ---
Consult Consult Specialty:: Cardiology Reason for Consultation:: Afib - History of Present Illness History of Present Illness: 68 m with suspected metastatic lung Ca and is scheduled for a biopsy. He is admitted with SOB and cough. In the ast Afib was noted transiently at PCP office. On follow up ECG, it has resolved without known recurrence. He has edema. Telemetry here sows NSR with transient regular SVT - History Source History Provided By: Patient, Medical Record - Past Medical History Cardio/Vascular: Yes: AFIB Renal/: Yes: BPH, UTI Musculoskeletal: Yes: Osteoarthritis - Past Surgical History Past Surgical History: Yes: None - Alcohol/Substance Use Hx Alcohol Use: No - Smoking History Smoking history: Unknown if ever smoked Have you smoked in the past 12 months: No Aproximately how many cigarettes per day: 0 Home Medications - Allergies Allergies/Adverse Reactions: Allergies Allergy/AdvReac Type Severity Reaction Status Date / Time No Known Allergies Allergy Verified 07/16/19 14:12 - Home Medications Home Medications: Ambulatory Orders Metoprolol Succinate 25 mg PO DAILY 01/21/19 Albuterol Sulfate [Proair Hfa] 2 neb IH Q4H 07/16/19 Promethazine HCl [Phenergan Liquid -] 12.5 mg PO Q4H 07/16/19 Review of Systems - Review of Systems Constitutional: reports: Loss of Appetite Eyes: reports: No Symptoms HENT: reports: No Symptoms Neck: reports: No Symptoms Cardiovascular: reports: Shortness of Breath. denies: Chest Pain, Palpitations Respiratory: reports: Cough, SOB Gastrointestinal: reports: No Symptoms Vital Signs: Vital Signs Temperature 99.1 F 07/17/19 14:02 Pulse Rate 107 H 07/17/19 14:02 Respiratory Rate 18 07/17/19 14:02 Blood Pressure 111/56 L 07/17/19 14:02 O2 Sat by Pulse Oximetry (%) 93 L 07/17/19 09:00 Constitutional: Yes: Well Nourished, No Distress Eyes: Yes: Conjunctiva Clear HENT: Yes: Atraumatic, Normocephalic Neck: Yes: Supple, Trachea Midline Respiratory: Yes: Regular Gastrointestinal: Yes: Normal Bowel Sounds Cardiovascular: Yes: Regular Rate and Rhythm JVD: No Carotid Bruit: No Heart Sounds: Yes: S1, S2 Murmur: No: Systolic Murmur, Diastolic Murmur Edema: RUE: 1+, LLE: 1+, RLE: 1+ - Other Data Labs, Other Data: CBC, BMP 07/17/19 09:00 07/17/19 09:00 INR, PTT INR 1.19 (0.83-1.09) H 07/16/19 13:45 Troponin, BNP 07/16/19 07/16/19 13:45 13:45 Troponin I < 0.02 B-Natriuretic Peptide 131.9 H Troponin, BNP 07/16/19 07/16/19 13:45 13:45 Troponin I < 0.02 B-Natriuretic Peptide 131.[address] t changes. Problem List - Problems (1) Malignancy Code(s): C80.1 - MALIGNANT (PRIMARY) NEOPLASM, UNSPECIFIED (2) Respiratory distress Code(s): R06.03 - ACUTE RESPIRATORY DISTRESS Assessment/Plan 68 M with suspected cancer of lung with mets. One bout of Afib was recently diagnosed n the out patient setting and resolved on followup. CHADSVasc score =1. Anticoagulatin is not indicated at this time. Telemetry with transient regular SVT. and would therefore continue with low dose metoprolol. Please get echo.
[2019-07-17] MEDS: ALBUTEROL SO4 2.5/IPRATROPIUM 0.5 INH SOL 3 ML VIAL.NEB. NEB SCH ×2 (16:43→20:15)
--- NOTE | 2019-07-17 16:46 | EKG ---
Test Reason : Blood Pressure : / mmHG Vent. Rate : 115 BPM Atrial Rate : 115 BPM P-R Int : 156 ms QRS Dur : 086 ms QT Int : 308 ms P-R-T Axes : 076 036 064 degrees QTc Int : 426 ms SINUS TACHYCARDIA WITH OCCASIONAL PREMATURE VENTRICULAR COMPLEXES OTHERWISE NORMAL ECG WHEN COMPARED WITH ECG OF 16-JUL-2019 12:56, PREMATURE VENTRICULAR COMPLEXES ARE NOW PRESENT Confirmed by MEME FOLEY, SHILPI ([id number]) on 07/17/2019 4:45:56 PM Referred By: Gloria CASTILLO Confirmed By:SHILPI VALENTINE MD
--- NOTE | 2019-07-17 16:51 | EKG ---
Test Reason : Blood Pressure : / mmHG Vent. Rate : 116 BPM Atrial Rate : 116 BPM P-R Int : 152 ms QRS Dur : 080 ms QT Int : 294 ms P-R-T Axes : 072 011 052 degrees QTc Int : 408 ms SINUS TACHYCARDIA OTHERWISE NORMAL ECG WHEN COMPARED WITH ECG OF 26-JUN-2016 08:58, NO SIGNIFICANT CHANGE WAS FOUND Confirmed by SHILPI VALENTINE MD ([id number]) on 07/17/2019 4:51:50 PM Referred By: Confirmed By:SHILPI VALENTINE MD
[2019-07-17] MEDS: ROSUVASTATIN CA 20 MG TABLET (FP) PO SCH (21:37)
[2019-07-17] MEDS: ZOLPIDEM TARTRATE 5 MG TABLET PO PRN (23:33)
[2019-07-18] MEDS: guaiFENesin/CODEINE 5 ML UNIT-DOSE CUPS PO PRN ×3 (03:01→17:03)
[2019-07-18] MEDS: ALBUTEROL SO4 2.5/IPRATROPIUM 0.5 INH SOL 3 ML VIAL.NEB. NEB SCH ×4 (07:40→20:28)
[2019-07-18 08:14] LABS: BASO % 0.7 % (0-2.0); EOS % 0.7 % (0-4.5); HEMATOCRIT 32.4 % (35.4-49); HEMOGLOBIN 10.9 GM/dL (11.7-16.9); LYMPH % 11.6 % (8-40); MCH 28.9 pg (25.7-33.7); MCHC 33.6 g/dl (32.0-35.9); MEAN CELL VOLUME 86.1 fl (80-96); MEAN PLT VOLUME 7.6 fl (7.5-11.1); MONO % 11.9 % (3.8-10.2); NEUT % 75.1 % (42.8-82.8); PLATELET COUNT 400 K/MM3 (134-434); RBC 3.77 M/mm3 (4.00-5.60); RDW 16.9 % (11.9-15.9); WHITE BLOOD COUNT 9.6 K/mm3 (4.0-10.0)
[2019-07-18 08:57] LABS: BLOOD UREA NITROGEN 25.4 mg/dL (7-18); CALCIUM 8.7 mg/dL (8.5-10.1); CREATININE 1.1 mg/dL (0.55-1.3); POTASSIUM 4.4 mmol/L (3.5-5.1)
[2019-07-18] MEDS: TAMSULOSIN HCL 0.4 MG CAP PO SCH (10:39)
[2019-07-18] MEDS: metoPROLOL SUCCINATE 25 MG TAB.SR.24H (FP) PO SCH (10:39)
--- NOTE | 2019-07-18 11:19 | PN ---
Progress Note, Physician History of Present Illness: pulmonary alert,oob-chair,less dyspneic - Current Medication List Current Medications: Active Medications Albuterol Sulfate (Ventolin Hfa Inhaler -) 2 puff IH Q6H PRN PRN Reason: SHORTNESS OF BREATH Last Admin: 07/18/19 04:30 Dose: 2 puff Albuterol/Ipratropium (Duoneb -) 1 amp NEB RQID [facility] Last Admin: 07/18/19 07:40 Dose: 1 amp Guaifenesin/Codeine Phosphate (Robitussin Ac -) 10 ml PO Q4H PRN PRN Reason: COUGH Last Admin: 07/18/19 10:40 Dose: 10 ml Metoprolol Succinate (Toprol Xl -) 25 mg PO DAILY [facility] Last Admin: 07/18/19 10:39 Dose: 25 mg Rosuvastatin Calcium (Crestor -) 20 mg PO HS [facility] Last Admin: 07/17/19 21:37 Dose: 20 mg Tamsulosin HCl (Flomax -) 0.4 mg PO DAILY@0830 [facility] Last Admin: 07/18/19 10:39 Dose: 0.4 mg Zolpidem Tartrate (Ambien -) 5 mg PO HS PRN PRN Reason: INSOMNIA Last Admin: 07/17/19 23:33 Dose: 5 mg - Objective Vital Signs: Vital Signs Temperature 98.2 F 07/18/19 05:58 Pulse Rate 112 H 07/18/19 05:58 Respiratory Rate 22 H 07/18/19 05:58 Blood Pressure 125/47 L 07/18/19 05:58 O2 Sat by Pulse Oximetry (%) 92 L 07/17/19 21:00 Constitutional: Yes: Well Nourished, Calm Eyes: Yes: WNL HENT: Yes: WNL Neck: Yes: WNL Cardiovascular: Yes: Pulse Irregular, S1, S2 Respiratory: Yes: Rhonchi (few rhonchi) Gastrointestinal: Yes: Normal Bowel Sounds, Soft Extremities: Yes: WNL Edema: No Labs: CBC, BMP 07/18/19 07:10 07/18/19 07:10 INR, PTT INR 1.19 (0.83-1.09) H 07/16/19 13:45 Problem List - Problems (1) Lung mass Code(s): R91.8 - OTHER NONSPECIFIC ABNORMAL FINDING OF LUNG FIELD (2) Malignancy Code(s): C80.1 - MALIGNANT (PRIMARY) NEOPLASM, UNSPECIFIED (3) Respiratory distress Code(s): R06.03 - ACUTE RESPIRATORY DISTRESS (4) Obesity Code(s): E66.9 - OBESITY, UNSPECIFIED (5) Hyponatremia Code(s): E87.1 - HYPO-OSMOLALITY AND HYPONATREMIA Assessment/Plan ASSESSMENT AND PLAN: Likely Progressive Lung Cancer - suspect small cell lung cancer Pleural Effusion likely malignant r/o SVC syndrome Hyponatremia Lactic Acidosis Atrial Fibrillation Hyperlipidemia Anemia - diagnostic thoracentesis today - hold all antiplatelets - inhaled bronchodilators - oncology evaluation - can monitor off antibiotics given absence of fevers and leukocytosis - rate control - DVT prophylaxis DR FRYE
--- NOTE | 2019-07-18 11:57 | ECHO ---
Name: ANTCARYLRODRIGUEZ Exam:Adult Echocardiogram Study Date: 07/18/2019 08:56 AM Age: 68 yrs Reason For Study: afib Height: 66 in Weight: 198 lb BSA: 2.0 m2 MMode/2D Measurements & Calculations IVSd: 0.99 cm Ao root diam: 3.1 cm LVIDd: 4.1 cm LA dimension: 2.8 cm LVIDs: 2.7 cm LVPWd: 1.2 cm LVPWs: 1.5 cm EDV(Teich): 75.7 ml ESV(Teich): 26.9 ml LVOT diam: 1.9 cm Doppler Measurements & Calculations MV E max reyes: 69.1 cm/sec Ao V2 max: 179.2 cm/sec MV A max reyes: 108.6 cm/sec Ao max P.8 mmHg MV E/A: 0.64 ZARA(V,D): 2.3 cm2 LV V1 max P.6 mmHg TR max reyes: 315.7 cm/sec LV V1 max: 136.3 cm/sec TR max P.0 mmHg PA V2 max: 139.1 cm/sec Med Peak E' Reyes: 7.3 cm/sec PA max P.8 mmHg Med E/e': 9.5 Lat Peak E' Reyes: 8.5 cm/sec Lat E/e': 8.1 Procedure A complete two-dimensional transthoracic echocardiogram was performed (2D, M-mode, Doppler and color flow Doppler). Left Ventricle The left ventricle is normal in size. Left ventricular systolic function is normal. Ejection Fraction = 60- 65%. No regional wall motion abnormalities noted. Right Ventricle The right ventricle is normal size. The right ventricular systolic function is normal. Atria The left atrial size is normal. Right atrial size is normal. Mitral Valve There is mild mitral valve thickening. There is no mitral regurgitation noted. Tricuspid Valve The tricuspid valve is normal in structure and function. There is mild to moderate tricuspid regurgit ation. Pulmonary artery systolic pressure is at least 50 mmHg as RA pressure is assumed 3 mmHg. Aortic Valve There is mild aortic sclerosis.;. No aortic regurgitation is present. Pulmonic Valve The pulmonic valve is not well visualized. Great Vessels The aortic root is normal size. Pericardium/Pleura Small pericardial effusion (<1cm). Interpretation Summary The left ventricle is normal in size. Left ventricular systolic function is normal. No regional wall motion abnormalities noted. Ejection Fraction = 60-65%. The right ventricular systolic function is normal. The left atrial size is normal. Right atrial size is normal. There is mild mitral valve thickening. There is mild to moderate tricuspid regurgitation. Pulmonary artery systolic pressure is at least 50 mmHg as RA pressure is assumed 3 mmHg There is mild aortic sclerosis. Small pericardial effusion (<1cm) Previous study is not available for comparison Tyrel Rivera MD 07/18/2019 11:56 AM
--- NOTE | 2019-07-18 15:21 | PN ---
Progress Note, Physician History of Present Illness: seen and examined today in [facility]. no overnight events. no new complaints. - Current Medication List Current Medications: Active Medications Albuterol Sulfate (Ventolin Hfa Inhaler -) 2 puff IH Q6H PRN PRN Reason: SHORTNESS OF BREATH Last Admin: 07/18/19 04:30 Dose: 2 puff Albuterol/Ipratropium (Duoneb -) 1 amp NEB RQID [facility] Last Admin: 07/18/19 11:25 Dose: 1 amp Guaifenesin/Codeine Phosphate (Robitussin Ac -) 10 ml PO Q4H PRN PRN Reason: COUGH Last Admin: 07/18/19 10:40 Dose: 10 ml Metoprolol Succinate (Toprol Xl -) 25 mg PO DAILY [facility] Last Admin: 07/18/19 10:39 Dose: 25 mg Rosuvastatin Calcium (Crestor -) 20 mg PO HS [facility] Last Admin: 07/17/19 21:37 Dose: 20 mg Tamsulosin HCl (Flomax -) 0.4 mg PO DAILY@0830 [facility] Last Admin: 07/18/19 10:39 Dose: 0.4 mg Zolpidem Tartrate (Ambien -) 5 mg PO HS PRN PRN Reason: INSOMNIA Last Admin: 07/17/19 23:33 Dose: 5 mg - Objective Vital Signs: Vital Signs Temperature 98.5 F 07/18/19 14:07 Pulse Rate 115 H 07/18/19 14:07 Respiratory Rate 20 07/18/19 14:07 Blood Pressure 97/53 L 07/18/19 14:07 O2 Sat by Pulse Oximetry (%) 92 L 07/18/19 09:00 Constitutional: Yes: No Distress, Calm Eyes: Yes: Conjunctiva Clear, EOM Intact HENT: Yes: Atraumatic, Normocephalic Neck: Yes: Supple, Trachea Midline Cardiovascular: Yes: Regular Rate and Rhythm, S1, S2. No: Bradycardia, Tachycardia, Pulse Irregular, Bruit, JVD, Gallop, Murmur, Rub, S3, S4, Varicosities Respiratory: Yes: Regular, Cough, Diminished, Rhonchi. No: Rales, Wheezes Gastrointestinal: Yes: Normal Bowel Sounds, Soft Edema: Yes Edema: LLE: 1+, RLE: 1+ Peripheral Pulses WNL: Yes Neurological: Yes: Alert, Oriented Psychiatric: Yes: Alert, Oriented Labs: CBC, BMP 07/18/19 07:10 07/18/19 07:10 INR, PTT INR 1.19 (0.83-1.09) H 07/16/19 13:45 - ....Imaging Chest X-ray: Report Reviewed, Image Reviewed EKG: Report Reviewed, Image Reviewed Other: Report Reviewed, Image Reviewed (tele-nsr, brief episodes of psvt) Assessment/Plan 68 M with suspected cancer of lung with mets. One bout of Afib was recently diagnosed n the out patient setting and resolved on followup. -CHADSVasc score =1. -Anticoagulatin is not indicated at this time. -Telemetry shows episodes of brief self limited PSVT -cont Toprol XL 25mg daily -echo 07/18/19 showed normal LVEF, mild to mod valvular abnl, at least mod Pulmonary HTN, small pericardial effusion.
[2019-07-18] MEDS: ROSUVASTATIN CA 20 MG TABLET (FP) PO SCH (21:50)
[2019-07-18] MEDS: ZOLPIDEM TARTRATE 5 MG TABLET PO PRN (21:50)
[2019-07-18] MEDS ORDERED: metoPROLOL SUCCINATE 25 MG TAB.SR.24H (FP) PO ONE (23:45)
[2019-07-19] MEDS: ACETAMINOPHEN 325 MG TABLET (FP) PO PRN ×2 (00:09→21:58)
[2019-07-19] MEDS: TAMSULOSIN HCL 0.4 MG CAP PO SCH (08:00)
[2019-07-19] MEDS: ALBUTEROL SO4 2.5/IPRATROPIUM 0.5 INH SOL 3 ML VIAL.NEB. NEB SCH ×4 (08:00→20:47)
--- NOTE | 2019-07-19 09:13 | PN ---
Progress Note, Physician Chief Complaint: still sob and cough telemetry only shows sinus tachycardia today. History of Present Illness: 68 M with suspected cancer of lung with mets. One bout of Afib was recently diagnosed in the out patient setting and resolved on followup. tele brief psvt. awaiting thoracentesis. echo 07/18/19: normal LVEF, mild to mod valvular abnl, at least mod Pulmonary HTN , small pericardial effusion. - Current Medication List Current Medications: Active Medications Acetaminophen (Tylenol -) 650 mg PO Q4H PRN PRN Reason: TEMP >100.4 Last Admin: 07/19/19 00:09 Dose: 650 mg Albuterol Sulfate (Ventolin Hfa Inhaler -) 2 puff IH Q6H PRN PRN Reason: SHORTNESS OF BREATH Last Admin: 07/18/19 04:30 Dose: 2 puff Albuterol/Ipratropium (Duoneb -) 1 amp NEB RQID [facility] Last Admin: 07/19/19 08:00 Dose: 1 amp Guaifenesin/Codeine Phosphate (Robitussin Ac -) 10 ml PO Q4H PRN PRN Reason: COUGH Last Admin: 07/18/19 17:03 Dose: 10 ml Metoprolol Succinate 50 mg/ (Metoprolol Succinate 25 mg) 75 mg PO DAILY [facility] Rosuvastatin Calcium (Crestor -) 20 mg PO HS [facility] Last Admin: 07/18/19 21:50 Dose: 20 mg Tamsulosin HCl (Flomax -) 0.4 mg PO DAILY@0830 [facility] Last Admin: 07/18/19 10:39 Dose: 0.4 mg Zolpidem Tartrate (Ambien -) 5 mg PO HS PRN PRN Reason: INSOMNIA Last Admin: 07/18/19 21:50 Dose: 5 mg - Objective Vital Signs: Vital Signs Temperature 98.4 F 07/19/19 06:17 Pulse Rate 92 H 07/19/19 06:17 Respiratory Rate 20 07/19/19 06:17 Blood Pressure 119/66 07/19/19 06:17 O2 Sat by Pulse Oximetry (%) 95 07/18/19 21:00 Constitutional: Yes: No Distress, Calm Eyes: Yes: EOM Intact HENT: Yes: Normocephalic Neck: Yes: Trachea Midline Cardiovascular: Yes: Tachycardia Respiratory: Yes: Poor Air Entry, Rhonchi Extremities: Yes: WNL Edema: No Labs: CBC, BMP 07/18/19 07:10 07/18/19 07:10 INR, PTT INR 1.19 (0.83-1.09) H 07/16/19 13:45 Assessment/Plan 68 M with suspected cancer of lung with mets. One bout of Afib was recently diagnosed n the out patient setting and resolved on followup. -CHADSVasc score =1. -Anticoagulation is not indicated at this time. -Telemetry shows episodes of brief self limited PSVT -cont Toprol XL can increase to 50mg daily -however, there is little role for beta blockers in the treatment of sinus tachycardia. The treatment is that of the underlying disease (in this patient his pulmonary status is very poor due to his malignancy). -echo 07/18/19 showed normal LVEF, mild to mod valvular abnl, at least mod Pulmonary HTN, small pericardial effusion. -would also consider pulmonary embolus workup given pulm htn and atrial arrhythmias.
[2019-07-19] MEDS ORDERED: metoPROLOL SUCCINATE 25 MG TAB.SR.24H (FP) ONE (09:20)
[2019-07-19] MEDS ORDERED: METOPROLOL SUCCINATE 50 MG, METOPROLOL SUCCINATE 25 MG PO SCH (10:00)
[2019-07-19] MEDS: guaiFENesin/CODEINE 5 ML UNIT-DOSE CUPS PO PRN ×3 (10:00→21:53)
--- NOTE | 2019-07-19 10:39 | PN ---
Progress Note, Physician History of Present Illness: pt had bout of s tacvh no symotoms bp ok metoprolol 50 mg given hr better pt down stiars for? thorocetisis and ? bx rt supraclavicula - Current Medication List Current Medications: Active Medications Acetaminophen (Tylenol -) 650 mg PO Q4H PRN PRN Reason: TEMP >100.4 Last Admin: 07/19/19 00:09 Dose: 650 mg Albuterol Sulfate (Ventolin Hfa Inhaler -) 2 puff IH Q6H PRN PRN Reason: SHORTNESS OF BREATH Last Admin: 07/18/19 04:30 Dose: 2 puff Albuterol/Ipratropium (Duoneb -) 1 amp NEB RQID [facility] Last Admin: 07/19/19 08:00 Dose: 1 amp Guaifenesin/Codeine Phosphate (Robitussin Ac -) 10 ml PO Q4H PRN PRN Reason: COUGH Last Admin: 07/19/19 10:00 Dose: 10 ml Metoprolol Succinate (Toprol Xl -) 50 mg PO DAILY [facility] Last Admin: 07/19/19 10:00 Dose: 50 mg Rosuvastatin Calcium (Crestor -) 20 mg PO HS [facility] Last Admin: 07/18/19 21:50 Dose: 20 mg Tamsulosin HCl (Flomax -) 0.4 mg PO DAILY@0830 [facility] Last Admin: 07/19/19 08:00 Dose: 0.4 mg Zolpidem Tartrate (Ambien -) 5 mg PO HS PRN PRN Reason: INSOMNIA Last Admin: 07/18/19 21:50 Dose: 5 mg - Objective Vital Signs: Vital Signs Temperature 98.4 F 07/19/19 06:17 Pulse Rate 92 H 07/19/19 06:17 Respiratory Rate 20 07/19/19 06:17 Blood Pressure 119/66 07/19/19 06:17 O2 Sat by Pulse Oximetry (%) 95 07/18/19 21:00 Constitutional: Yes: Well Nourished Eyes: Yes: WNL, Occular Prosthesis Neck: Yes: WNL Cardiovascular: Yes: Regular Rate and Rhythm Respiratory: Yes: On Nasal O2, SOB Gastrointestinal: Yes: WNL ...Rectal Exam: Yes: Deferred Genitourinary: Yes: WNL Breast(s): Yes: WNL Musculoskeletal: Yes: WNL Extremities: Yes: WNL Edema: Yes Edema: LLE: 2+, RLE: 2+ Peripheral Pulses WNL: Yes Integumentary: Yes: WNL Neurological: Yes: WNL ...Motor Strength: WNL Psychiatric: Yes: WNL Labs: CBC, BMP 07/18/19 07:10 07/18/19 07:10 INR, PTT INR 1.19 (0.83-1.09) H 07/16/19 13:45 Assessment/Plan chk labs in am chk bx wastch fot rising hr and lower na 134 arnel
--- NOTE | 2019-07-19 12:04 | PN ---
Progress Note, Physician History of Present Illness: PULMONARY ALERT,OOB-CHAIR,STILL DYSPNEIC. PT S/P R THORACENTESIS TOLERATED WELL - Current Medication List Current Medications: Active Medications Acetaminophen (Tylenol -) 650 mg PO Q4H PRN PRN Reason: TEMP >100.4 Last Admin: 07/19/19 00:09 Dose: 650 mg Albuterol Sulfate (Ventolin Hfa Inhaler -) 2 puff IH Q6H PRN PRN Reason: SHORTNESS OF BREATH Last Admin: 07/18/19 04:30 Dose: 2 puff Albuterol/Ipratropium (Duoneb -) 1 amp NEB RQID [facility] Last Admin: 07/19/19 08:00 Dose: 1 amp Guaifenesin/Codeine Phosphate (Robitussin Ac -) 10 ml PO Q4H PRN PRN Reason: COUGH Last Admin: 07/19/19 10:00 Dose: 10 ml Metoprolol Succinate (Toprol Xl -) 50 mg PO DAILY [facility] Last Admin: 07/19/19 10:00 Dose: 50 mg Rosuvastatin Calcium (Crestor -) 20 mg PO HS [facility] Last Admin: 07/18/19 21:50 Dose: 20 mg Tamsulosin HCl (Flomax -) 0.4 mg PO DAILY@0830 [facility] Last Admin: 07/19/19 08:00 Dose: 0.4 mg Zolpidem Tartrate (Ambien -) 5 mg PO HS PRN PRN Reason: INSOMNIA Last Admin: 07/18/19 21:50 Dose: 5 mg - Objective Vital Signs: Vital Signs Temperature 97.9 F 07/19/19 09:30 Pulse Rate 103 H 07/19/19 09:30 Respiratory Rate 20 07/19/19 09:30 Blood Pressure 107/43 L 07/19/19 09:30 O2 Sat by Pulse Oximetry (%) 93 L 07/19/19 10:00 Constitutional: Yes: Well Nourished, Mild Distress Eyes: Yes: WNL HENT: Yes: WNL Neck: Yes: WNL Cardiovascular: Yes: Pulse Irregular, S1, S2 Respiratory: Yes: Rhonchi (SCATTERED NUBIA RHONCHI) Gastrointestinal: Yes: Normal Bowel Sounds, Soft Extremities: Yes: WNL Edema: Yes Edema: LLE: 3+, RLE: 3+ Labs: CBC, BMP 07/18/19 07:10 Problem List - Problems (1) Lung mass Code(s): R91.8 - OTHER NONSPECIFIC ABNORMAL FINDING OF LUNG FIELD (2) Malignancy Code(s): C80.1 - MALIGNANT (PRIMARY) NEOPLASM, UNSPECIFIED (3) Respiratory distress Code(s): R06.03 - ACUTE RESPIRATORY DISTRESS (4) Obesity Code(s): E66.9 - OBESITY, UNSPECIFIED (5) Hyponatremia Code(s): E87.1 - HYPO-OSMOLALITY AND HYPONATREMIA Assessment/Plan ASSESSMENT AND PLAN: Likely Progressive Lung Cancer - suspect small cell lung cancer Pleural Effusion likely malignant r/o SVC syndrome Hyponatremia Lactic Acidosis Atrial Fibrillation Hyperlipidemia Anemia Pulmonary htn - check pleural fluid chemistries/cytology - hold all antiplatelets - inhaled bronchodilators - oncology evaluation - rate control - DVT prophylaxis - duplex lower ext - chest cta if duplex negative DR FRYE
[2019-07-19 12:54] LABS: BF WBC & OTHER NUCLEATED CELLS 800 /mm3
[2019-07-19] MEDS ORDERED: ZOLPIDEM TARTRATE 5 MG TABLET PO PRN (14:51)
[2019-07-19 15:19] LABS: BODY FLUID MONOCYTE 16 %; BODYL FLD EOSINOPHIL 5 %
[2019-07-19] MEDS: ROSUVASTATIN CA 20 MG TABLET (FP) PO SCH (21:53)
[2019-07-20] MEDS: ALBUTEROL SO4 2.5/IPRATROPIUM 0.5 INH SOL 3 ML VIAL.NEB. NEB SCH ×4 (08:06→20:19)
[2019-07-20 08:09] LABS: BLOOD UREA NITROGEN 32.5 mg/dL (7-18); CALCIUM 8.7 mg/dL (8.5-10.1); CREATININE 1.2 mg/dL (0.55-1.3); POTASSIUM 4.7 mmol/L (3.5-5.1)
[2019-07-20] MEDS: TAMSULOSIN HCL 0.4 MG CAP PO SCH (08:26)
--- NOTE | 2019-07-20 10:32 | PN ---
Progress Note, Physician - Current Medication List Current Medications: Active Medications Acetaminophen (Tylenol -) 650 mg PO Q4H PRN PRN Reason: TEMP >100.4 Last Admin: 07/19/19 21:58 Dose: 650 mg Albuterol Sulfate (Ventolin Hfa Inhaler -) 2 puff IH Q6H PRN PRN Reason: SHORTNESS OF BREATH Last Admin: 07/18/19 04:30 Dose: 2 puff Albuterol/Ipratropium (Duoneb -) 1 amp NEB RQID [facility] Last Admin: 07/20/19 08:06 Dose: 1 amp Guaifenesin/Codeine Phosphate (Robitussin Ac -) 10 ml PO Q4H PRN PRN Reason: COUGH Last Admin: 07/19/19 21:53 Dose: 10 ml Metoprolol Succinate (Toprol Xl -) 50 mg PO DAILY [facility] Last Admin: 07/20/19 09:21 Dose: 50 mg Rosuvastatin Calcium (Crestor -) 20 mg PO HS [facility] Last Admin: 07/19/19 21:53 Dose: 20 mg Tamsulosin HCl (Flomax -) 0.4 mg PO DAILY@0830 [facility] Last Admin: 07/20/19 08:26 Dose: 0.4 mg Zolpidem Tartrate (Ambien -) 5 mg PO HS PRN PRN Reason: INSOMNIA - Objective Vital Signs: Vital Signs Temperature 98.1 F 07/20/19 06:55 Pulse Rate 115 H 07/20/19 10:29 Respiratory Rate 22 H 07/20/19 10:29 Blood Pressure 126/63 07/20/19 10:29 O2 Sat by Pulse Oximetry (%) 94 L 07/20/19 10:29 Labs: CBC, BMP 07/18/19 07:10 07/20/19 06:34 INR, PTT INR 1.19 (0.83-1.09) H 07/16/19 13:45 Assessment/Plan pt going for bx now low na level\fluid restrictions
--- NOTE | 2019-07-20 12:48 | PN ---
Progress Note, Physician History of Present Illness: pulmonary alert,dyspneic,on 100% nrm,s/p supraclavicular node bx - Current Medication List Current Medications: Active Medications Acetaminophen (Tylenol -) 650 mg PO Q4H PRN PRN Reason: TEMP >100.4 Last Admin: 07/19/19 21:58 Dose: 650 mg Albuterol Sulfate (Ventolin Hfa Inhaler -) 2 puff IH Q6H PRN PRN Reason: SHORTNESS OF BREATH Last Admin: 07/18/19 04:30 Dose: 2 puff Albuterol/Ipratropium (Duoneb -) 1 amp NEB RQID [facility] Last Admin: 07/20/19 08:06 Dose: 1 amp Guaifenesin/Codeine Phosphate (Robitussin Ac -) 10 ml PO Q4H PRN PRN Reason: COUGH Last Admin: 07/19/19 21:53 Dose: 10 ml Metoprolol Succinate (Toprol Xl -) 50 mg PO DAILY [facility] Last Admin: 07/20/19 09:21 Dose: 50 mg Rosuvastatin Calcium (Crestor -) 20 mg PO HS [facility] Last Admin: 07/19/19 21:53 Dose: 20 mg Tamsulosin HCl (Flomax -) 0.4 mg PO DAILY@0830 [facility] Last Admin: 07/20/19 08:26 Dose: 0.4 mg Zolpidem Tartrate (Ambien -) 5 mg PO HS PRN PRN Reason: INSOMNIA - Objective Vital Signs: Vital Signs Temperature 98.0 F 07/20/19 11:55 Pulse Rate 102 H 07/20/19 11:55 Respiratory Rate 20 07/20/19 11:55 Blood Pressure 111/57 L 07/20/19 11:55 O2 Sat by Pulse Oximetry (%) 97 07/20/19 11:03 Constitutional: Yes: Well Nourished, Mild Distress Eyes: Yes: WNL HENT: Yes: WNL Neck: Yes: WNL Cardiovascular: Yes: Regular Rate and Rhythm, S1, S2 Respiratory: Yes: Rhonchi (scattered priyanka rhonchi) Gastrointestinal: Yes: Normal Bowel Sounds, Soft Extremities: Yes: WNL Edema: Yes Labs: CBC, BMP 07/18/19 07:10 07/20/19 06:34 INR, PTT INR 1.19 (0.83-1.09) H 07/16/19 13:45 Problem List - Problems (1) Lung mass Code(s): R91.8 - OTHER NONSPECIFIC ABNORMAL FINDING OF LUNG FIELD (2) Malignancy Code(s): C80.1 - MALIGNANT (PRIMARY) NEOPLASM, UNSPECIFIED (3) Respiratory distress Code(s): R06.03 - ACUTE RESPIRATORY DISTRESS (4) Obesity Code(s): E66.9 - OBESITY, UNSPECIFIED (5) Hyponatremia Code(s): E87.1 - HYPO-OSMOLALITY AND HYPONATREMIA Assessment/Plan ASSESSMENT AND PLAN: Likely Progressive Lung Cancer - suspect small cell lung cancer Pleural Effusion likely malignant r/o SVC syndrome Hyponatremia Lactic Acidosis Atrial Fibrillation Hyperlipidemia Anemia Pulmonary htn - check pleural fluid chemistries/cytology - hold all antiplatelets - inhaled bronchodilators - oncology evaluation - rate control - DVT prophylaxis - check path supraclavicular node - O2 - inhaled bronchodilators DR FRYE
[2019-07-20 13:07] LABS: BODY FLUID ALBUMIN 2.2 g/dL (.)
[2019-07-20] MEDS ORDERED: PIPERACILLIN/TAZOB 2.25 GM 2.25 GM in DEXTROSE 5%-WATER - 50 ML IVPB SCH (14:15)
[2019-07-20] MEDS ORDERED: PIPERACILLIN/TAZOB 3.375 GM 3.375 GM in DEXTROSE 5%-WATER - 50 ML IVPB SCH ×2 (14:15→18:00)
[2019-07-20] MEDS ORDERED: DEXTROSE 5%-WATER - 50 ML IVPB ONE (16:54)
[2019-07-20] MEDS ORDERED: PIPERACILLIN/TAZOBACTAM 3.375 GM VIAL IVPB ONE (16:54)
[2019-07-20] MEDS: methylPREDNISolone NA SUCC 40 MG/1 ML VIAL IVPUSH SCH ×2 (17:37→20:15)
[2019-07-20] MEDS: guaiFENesin/CODEINE 5 ML UNIT-DOSE CUPS PO PRN ×2 (17:37→22:28)
--- NOTE | 2019-07-20 20:22 | RAPID ---
Physical Examination Vital Signs: Vital Signs Temperature 98.7 F 07/20/19 16:00 Pulse Rate 116 H 07/20/19 16:00 Respiratory Rate 22 H 07/20/19 16:00 Blood Pressure 109/52 L 07/20/19 16:00 O2 Sat by Pulse Oximetry (%) 94 L 07/20/19 19:38 Rapid response called at 1944. Rapid response team arrived immediately. Patient sitting in chair in room comfortably. As per family the patient was coughing, his face started to get red/purple, and his eyes and head rolled back and he was shaking. No episode of incontinence, tongue biting, foaming at the mouth. The episode lasted less than 10 second as per the family and nurse. Patient has been at his baseline. He denies any chest pain, SOB, dizziness, or other symptoms. He only complains of mild pain at the site of his chest tube insertion. Patient did not fall. Vitals: BP 125/63, HR 108, 94% O2 saturation Physical Exam: Constitutional: awake, alert, no acute distress HEENT: NC/AT, PERRL, EOMI, supple, no cervical lymphadenopathy, no carotid bruits Cardio: normal S1, S2, tachycardic, normal rhythm, no murmurs Resp: mild respiratory stridor auscultated at the neck, lungs clear to auscultation bilaterally, no wheezing, rhonchi, or rales, no accessory muscle use. Abd: soft, non distended, normoactive bowel sounds MSK: grossly normal ROM of joints Neuro: CN 2-12 normal, 5/5 strength upper and lower extremities, normal muscle tone, normal finger to nose. NIHSS 0. AAOx3 Plan: CBC, CMP, TROP, EKG, repeat CXR, Duoneb ordered Upon going down to assess EKG, told that patient had another episode after coughing. lasted only 2-3 seconds, had some shaking again. Patient resting comfortably with no complaints. Nurse contacted Dr. Duarte, requesting ICU consult, head CT. EKG - sinus tachycardia. No acute ischemic changes noted. Labs: CBC, BMP 07/18/19 07:10 07/20/19 06:34
[2019-07-20] MEDS ORDERED: FOSPHENYTOIN SODIUM 100 MG/2 ML VIAL IVPUSH ONE (20:47)
[2019-07-20] MEDS ORDERED: FOSPHENYTOIN SODIUM 500 MG/10 ML IVPB ONE (20:47)
[2019-07-20 21:04] LABS: ARTERIAL BLD GAS O2 SATURATION 86.6 % (95-98); ARTERIAL BLOOD GAS BASE EXCESS -0.9 meq/l (-2-2); ARTERIAL BLOOD GAS PO2 52.6 mmHg (80-100); ARTERIAL BLOOD GAS pH 7.43 (7.35-7.45)
[2019-07-20 21:05] LABS: ALLENS TEST POSITIVE
--- NOTE | 2019-07-20 21:09 | CONSULT ---
Consultation: REQUESTING PROVIDER: CONSULT REQUEST: We have been asked to medically evaluate this patient for possible seizure activity (as witnessed by family) and pneumothorax s/p supraclavicular lymph node biopsy and chest tube placement. HISTORY OF PRESENT ILLNESS: Mr. Obrien is a 68 y/o male with PMH of a-fib, HLD, mediastinal mass, presented for evaluation and biopsy of mass. He is s/p supraclavicular LN biopsy today. Decreased breath sounds noted on the right side and patient subsequently underwent a chest tube placement. Patient was sitting up in the chair today when family noticed shaking movements and loss of consciousness. Reports that patient was shaking for around 10 seconds. Nursing and rapid response called to bedside and did not witness any shaking, but noticed that the patient had his head back with decreased alertness. EKG, CT head, labs, neuro consult ordered. Patient accepted to the ICU for continued care. REVIEW OF SYSTEMS: CONSTITUTIONAL: fever, weight loss Absent: chills, diaphoresis, generalized weakness, malaise, loss of appetite HEENT: Absent: rhinorrhea, nasal congestion, throat pain, throat swelling, difficulty swallowing, mouth swelling, ear pain, eye pain, visual changes CARDIOVASCULAR: chest pain over post-operative incision sites Absent: syncope, palpitations, irregular heart rate, lightheadedness, peripheral edema RESPIRATORY: Reports cough, shortness of breath associated with cough, wheezing , orthopnea Absent: dyspnea with exertion, stridor, hemoptysis GASTROINTESTINAL: Absent: abdominal pain, abdominal distension, nausea, vomiting, diarrhea, constipation, melena, hematochezia GENITOURINARY: Absent: dysuria, frequency, urgency, hesitancy, hematuria, flank pain, genital pain MUSCULOSKELETAL: Absent: myalgia, arthralgia, joint swelling, back pain, neck pain SKIN: Absent: rash, itching, pallor HEMATOLOGIC/IMMUNOLOGIC: Absent: easy bleeding, easy bruising, lymphadenopathy, frequent infections ENDOCRINE: Absent: heat intolerance, cold intolerance NEUROLOGIC: mild headache, mild dizziness, possible seizure like activity Absent: focal weakness or paresthesias, unsteady gait, mental status changes, bladder or bowel incontinence PSYCHIATRIC: Absent: anxiety, depression, suicidal or homicidal ideation, hallucinations. PHYSICAL EXAMINATION Vital Signs - 24 hr 07/19/19 07/20/19 07/20/19 23:00 01:42 06:55 Temperature 100.5 F H 99.0 F 98.1 F Pulse Rate 104 H 112 H 91 H Pulse Rate [ Left Upper Arm] Respiratory 20 20 20 Rate Respiratory Rate [Left Upper Arm] Blood Pressure 107/56 L 96/54 L 102/60 Blood Pressure [Left Upper Arm ] O2 Sat by Pulse Oximetry (%) O2 Sat by Pulse Oximetry (%) [ Left Upper Arm] 07/20/19 07/20/19 07/20/19 08:30 10:00 10:29 Temperature Pulse Rate 99 H 115 H Pulse Rate [ Left Upper Arm] Respiratory 20 22 H Rate Respiratory Rate [Left Upper Arm] Blood Pressure 110/60 126/63 Blood Pressure [Left Upper Arm ] O2 Sat by Pulse 93 L 94 L Oximetry (%) O2 Sat by Pulse Oximetry (%) [ Left Upper Arm] 07/20/19 07/20/19 07/20/19 10:53 11:03 11:55 Temperature 98.0 F Pulse Rate 104 H 102 H Pulse Rate [ 102 H Left Upper Arm] Respiratory 21 H 20 Rate Respiratory 15 Rate [Left Upper Arm] Blood Pressure 130/64 111/57 L Blood Pressure 122/62 [Left Upper Arm ] O2 Sat by Pulse 97 Oximetry (%) O2 Sat by Pulse 95 Oximetry (%) [ Left Upper Arm] 07/20/19 07/20/19 16:00 19:38 Temperature 98.7 F Pulse Rate 116 H Pulse Rate [ Left Upper Arm] Respiratory 22 H Rate Respiratory Rate [Left Upper Arm] Blood Pressure 109/52 L Blood Pressure [Left Upper Arm ] O2 Sat by Pulse 94 L Oximetry (%) O2 Sat by Pulse Oximetry (%) [ Left Upper Arm] GENERAL: Awake, alert, and fully oriented, in no acute distress. HEAD: Normal with no signs of trauma. EYES: Pupils equal, round and reactive to light, extraocular movements intact, sclera anicteric, conjunctiva clear. No lid lag. EARS, NOSE, THROAT: Ears normal, nares patent, oropharynx clear without exudates. Moist mucous membranes. NECK: Normal range of motion, supple without lymphadenopathy, JVD, or masses. CHEST: chest tube in place. Incision clean/dry/intact LUNGS: Decreased breath sounds over right lung field, diffuse wheezes in upper left lung field. HEART: Regular rate and rhythm, normal S1 and S2 without murmur, rub or gallop. ABDOMEN: Soft, nontender, not distended, normoactive bowel sounds, no guarding, no rebound, no masses. No hepatomegaly or splenomegaly. MUSCULOSKELETAL: Normal range of motion at all joints. No bony deformities or tenderness. No CVA tenderness. UPPER EXTREMITIES: 2+ pulses, warm, well-perfused. No cyanosis. No clubbing. Cap refill <2 seconds. No peripheral edema. LOWER EXTREMITIES: 2+ pulses, warm, well-perfused. No calf tenderness. No peripheral edema. NEUROLOGICAL: Cranial nerves II-XII intact. Normal speech. Normal gait. Cerebellar testing intact. 5/5 strength and sensation in upper/lower extremities. PSYCHIATRIC: Cooperative. Good eye contact. Appropriate mood and affect. SKIN: Warm, dry, normal turgor, no rashes or lesions noted. Laboratory Results - last 24 hr 07/19/19 07/20/19 07/20/19 12:01 06:34 20:56 Anticoagulation Therapy No Result Required. O2 Delivery Device No Result Required. Oxygen Flow Rate No Result Required. Vent Mode No Result Required. Vent Rate No Result Required. Mechanical Rate No Result Required. Pressure Support Vent No Result Required. Sodium 132 L Potassium 4.7 Chloride 95 L Carbon Dioxide 26 Anion Gap 10 BUN 32.5 H Creatinine 1.2 Est GFR (CKD-EPI)AfAm 71.08 Est GFR (CKD-EPI)NonAf 61.33 Random Glucose 100 Calcium 8.7 Fluid Chloride Cancelled Fluid Glucose 52 Fluid Total Protein 3.6 Fluid Albumin 2.2 Body Fluid LDH Source 412 Fluid Amylase 71 Fluid Triglycerides 21 Active Medications Generic Name Dose Route Start Last Admin Trade Name Davidq PRN Reason Stop Dose Admin Acetaminophen 650 mg 07/18/19 23:54 07/19/19 21:58 Tylenol - PO 650 mg Q4H PRN Administration TEMP >100.4 Albuterol Sulfate 2 puff 07/16/19 20:09 07/18/19 04:30 Ventolin Hfa Inhaler - IH 2 puff Q6H PRN Administration SHORTNESS OF BREATH Albuterol/Ipratropium 1 amp 07/17/19 16:00 07/20/19 20:19 Duoneb - NEB 1 amp RQID [facility]ER[facility] Administration Fosphenytoin Sodium 1,000 mg 07/20/19 20:47 Cerebyx - IVPUSH 07/20/19 20:48 ONCE ONE Guaifenesin/Codeine Phosphate 10 ml 07/19/19 18:00 07/20/19 17:37 Robitussin Ac - PO 10 ml Q4H PRN Administration COUGH Piperacillin Sod/Tazobactam 50 mls @ 100 mls/hr 07/20/19 14:15 Sod 3.375 gm/ Dextrose IVPB Q8H-IV KERMIT Protocol Piperacillin Sod/Tazobactam 50 mls @ 100 mls/hr 07/20/19 18:00 07/20/19 17:38 Sod 3.375 gm/ Dextrose IVPB 07/21/19 10:29 100 mls/hr Q8H-IV [facility]ER[facility] Administration Protocol Methylprednisolone Sodium Succinate 60 mg 07/20/19 15:00 07/20/19 20:15 Solu-Medrol - IVPUSH 60 mg Q6H-IV [facility]ER[facility] Administration Metoprolol Succinate 50 mg 07/19/19 10:00 07/20/19 09:21 Toprol Xl - PO 50 mg DAILY [facility] Administration Rosuvastatin Calcium 20 mg 07/16/19 22:00 07/19/19 21:53 Crestor - PO 20 mg HS KERMIT Administration Tamsulosin HCl 0.4 mg 07/17/19 08:30 07/20/19 08:26 Flomax - PO 0.4 mg DAILY@0830 [facility] Administration Zolpidem Tartrate 5 mg 07/19/19 14:51 Ambien - PO HS PRN INSOMNIA ASSESSMENT/PLAN: This is a 68 y/o male with PMH of a-fib, HLD, mediastinal mass, POD #0 from supraclavicular lymph node biopsy, transferred to the ICU for higher level of care after possible seizure like activity. #Neuro: seizure like activity -fosphenytoin -seizure precautions -neuro consult: dilantin 200 mg BID -head CT shows no acute intracranial pathology or mass effect -MRI w w/o contrast tomorrow #Cardio: chronic a-fib and HLD -not on anticoagulation at this time as pt had biopsy today, cardio re-eval tomorrow -continue crestor #Resp: right pneumothorax -chest tube placed -follow chest tube output -continue duonebs #Onc: s/p supraclavicular LN biopsy -awaiting biopsy report #F/E/N -daily lytes, replete PRN -regular diet #Dispo: continue ICU care Visit type - Emergency Visit Emergency Visit: Yes ED Registration Date: 07/16/19 Care time: The patient presented to the Emergency Department on the above date and was hospitalized for further evaluation of their emergent condition. - New Patient This patient is new to me today: Yes Date on this admission: 07/21/19 - Critical Care Critical Care patient: Yes Total Critical Care Time (in minutes): 35 Critical Care Statement: The care of this patient involved high complexity decision making to prevent further life threatening deterioration of the patient 's condition and/or to evaluate & treat vital organ system(s) failure or risk of failure. ATTENDING PHYSICIAN STATEMENT I saw and evaluated the patient. I reviewed the resident's note and discussed the case with the resident. I agree with the resident's findings and plan as documented. SUBJECTIVE: OBJECTIVE: ASSESSMENT AND PLAN:
[2019-07-20 21:10] LABS: BASO % 0.1 % (0-2.0); EOS % 0.1 % (0-4.5); HEMATOCRIT 31.4 % (35.4-49); HEMOGLOBIN 10.4 GM/dL (11.7-16.9); LYMPH % 6.5 % (8-40); MCH 28.4 pg (25.7-33.7); MCHC 33.2 g/dl (32.0-35.9); MEAN CELL VOLUME 85.7 fl (80-96); MEAN PLT VOLUME 7.3 fl (7.5-11.1); MONO % 3.6 % (3.8-10.2); NEUT % 89.7 % (42.8-82.8); PLATELET COUNT 474 K/MM3 (134-434); RBC 3.66 M/mm3 (4.00-5.60); RDW 16.7 % (11.9-15.9); WHITE BLOOD COUNT 9.4 K/mm3 (4.0-10.0)
[2019-07-20 21:35] LABS: ALBUMIN 2.2 g/dl (3.4-5.0); ALK PHOS 159 U/L (45-117); ANION GAP 13 MMOL/L (8-16); BILIRUBIN,TOTAL 0.4 mg/dL (0.2-1); BLOOD UREA NITROGEN 35.8 mg/dL (7-18); CALCIUM 8.5 mg/dL (8.5-10.1); CHLORIDE 96 mmol/L (98-107); CO2 23 mmol/L (21-32); CREATININE 1.2 mg/dL (0.55-1.3); GLUCOSE,RANDOM 143 mg/dL (74-106); POTASSIUM 4.6 mmol/L (3.5-5.1); SGOT/AST 33 U/L (15-37); SGPT/ALT 27 U/L (13-61); SODIUM 132 mmol/L (136-145); TOT PROT 6.2 g/dl (6.4-8.2)
[2019-07-20] MEDS: ROSUVASTATIN CA 20 MG TABLET (FP) PO SCH (22:28)
[2019-07-20] MEDS: MUPIROCIN 2% TOPICAL OINTMENT FOR DECOLONIZATION NS SCH (22:29)
[2019-07-20] MEDS: CHLORHEXIDINE GLUCONATE 4% CLEANSER FOR DECOLONIZATION TP SCH (22:29)
[2019-07-20] MEDS ORDERED: ZOLPIDEM TARTRATE 5 MG TABLET PO PRN (23:16)
[2019-07-20] MEDS ORDERED: ALBUTEROL SO4 8 GM HFA INHALER IH PRN (23:16)
[2019-07-21] MEDS ORDERED: PIPERACILLIN/TAZOB 3.375 GM 3.375 GM in DEXTROSE 5%-WATER - 50 ML IVPB SCH (02:00)
[2019-07-21] MEDS ORDERED: PT OWN MED DRAWER 7, Y5N ONE (02:11)
[2019-07-21] MEDS ORDERED: ALBUTEROL SO4 0.083% IH SOL 2.5 MG/3 ML VIAL.NEB. NEB PRN (02:22)
[2019-07-21] MEDS ORDERED: DEXTROSE 5%-WATER - 50 ML IVPB ONE ×3 (02:28→17:19)
[2019-07-21] MEDS ORDERED: PIPERACILLIN/TAZOBACTAM 3.375 GM VIAL IVPB ONE ×3 (02:28→17:19)
[2019-07-21] MEDS: PIPERACILLIN/TAZOB 3.375 GM 3.375 GM in DEXTROSE 5%-WATER - 50 ML IVPB SCH ×3 (02:29→18:05)
[2019-07-21] MEDS: methylPREDNISolone NA SUCC 40 MG/1 ML VIAL IVPUSH SCH ×3 (02:30→18:05)
[2019-07-21] MEDS: guaiFENesin/CODEINE 5 ML UNIT-DOSE CUPS PO PRN ×2 (03:59→09:41)
[2019-07-21] MEDS: PHENYTOIN NA EXTENDED 100 MG CAPSULE (FP) PO SCH ×3 (06:07→21:41)
[2019-07-21] MEDS: ACETAMINOPHEN 325 MG TABLET (FP) PO PRN (06:56)
[2019-07-21 07:09] LABS: HEMATOCRIT 29.6 % (35.4-49); MCH 28.6 pg (25.7-33.7); MCHC 33.7 g/dl (32.0-35.9); MEAN CELL VOLUME 84.8 fl (80-96); MEAN PLT VOLUME 7.3 fl (7.5-11.1); PLATELET COUNT 476 K/MM3 (134-434); RBC 3.49 M/mm3 (4.00-5.60); RDW 16.6 % (11.9-15.9); WHITE BLOOD COUNT 6.8 K/mm3 (4.0-10.0)
[2019-07-21 07:42] LABS: BLOOD UREA NITROGEN 32.5 mg/dL (7-18); CALCIUM 8.3 mg/dL (8.5-10.1); CREATININE 1.1 mg/dL (0.55-1.3); POTASSIUM 4.5 mmol/L (3.5-5.1)
[2019-07-21] MEDS: ALBUTEROL SO4 2.5/IPRATROPIUM 0.5 INH SOL 3 ML VIAL.NEB. NEB SCH ×4 (07:50→21:04)
[2019-07-21] MEDS: HEPARIN NA (PORCINE) 5,000 UNITS/ML 1ML VIAL SQ SCH ×3 (09:41→21:40)
[2019-07-21] MEDS: MUPIROCIN 2% TOPICAL OINTMENT FOR DECOLONIZATION NS SCH ×2 (09:44→22:41)
[2019-07-21] MEDS: TAMSULOSIN HCL 0.4 MG CAP PO SCH (09:44)
[2019-07-21] MEDS ORDERED: POLYETHYLENE GLYCOL 3350 119 GM BTL PO SCH (10:00)
[2019-07-21] MEDS: POLYETHYLENE GLYCOL 3350 119 GM BTL PO SCH ×2 (10:02→11:27)
--- NOTE | 2019-07-21 10:54 | HP ---
Admitting History and Physical - Admission History of Present Illness: pt exsperianced ? seiuzer x 2 last pm lasted seconds after he stared coghing neuro states ? syncopal states he started shaking eyes rolled back and became postdictsal pt comfotable mow no bm yet but did not eat much last 2 days legs and upper exts edematous? multifactorial ? svc doubt neg jen sign r/o dvy we are abligated to get ldh lact acid again ? 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 constipation) Hepatobiliary: Yes: Other (? liver mets ct pnd) Renal/: Yes: BPH, UTI Infectious Disease: Yes: Other (wbc [id number]) Musculoskeletal: Yes: Osteoarthritis ENT: Yes: Sinusitis - Past Surgical History Past Surgical History: Yes: None - Smoking History Smoking history: Former smoker Have you smoked in the past 12 months: No Aproximately how many cigarettes per day: 0 - Alcohol/Substance Use Hx Alcohol Use: No - Social History Usual Living Arrangement: Yes: With Spouse ADL: Independent Home Medications - Allergies Allergies/Adverse Reactions: Allergies Allergy/AdvReac Type Severity Reaction Status Date / Time No Known Allergies Allergy Verified 07/16/19 14:12 - Home Medications Home Medications: Ambulatory Orders Metoprolol Succinate 25 mg PO DAILY 01/21/19 Albuterol Sulfate [Proair Hfa] 2 neb IH Q4H 07/16/19 Promethazine HCl [Phenergan Liquid -] 12.5 mg PO Q4H 07/16/19 Physical Examination Vital Signs: Vital Signs Temperature 98.2 F 07/21/19 06:00 Pulse Rate 100 H 07/21/19 10:00 Respiratory Rate 20 07/21/19 10:00 Blood Pressure 113/50 L 07/21/19 10:00 O2 Sat by Pulse Oximetry (%) 92 L 07/21/19 09:00 Labs: CBC, BMP 07/21/19 05:40 07/21/19 05:40 Assessment/Plan id on case ldh lact acid level chk labs in a, agree w reduction of steroids cont dilantin? for as long as he survives ldh level ct abd pelvic mri brain ? miralax ? chk bx will speak to dr hartley dvt prophylaxis cont all tx as is seizure asp precautions cont 02 ? neuro chks
--- NOTE | 2019-07-21 11:18 | PN ---
Teaching Attending Note Name of Resident: Chad Duarte ATTENDING PHYSICIAN STATEMENT I saw and evaluated the patient. I reviewed the resident's note and discussed the case with the resident. I agree with the resident's findings and plan as documented. SUBJECTIVE: Pt seen and examined in the ICU. Transferred down to ICU after questionable seizure. Still with some shortness of breath and chest pain. OBJECTIVE: Vital Signs Period Temp Pulse Resp BP Sys/[place] Pulse Ox Last 24 Hr 97.4 F-98.9 F 97-116 15-23 92-146/49-73 92-94 Intake & Output 07/18/19 07/19/19 07/20/19 07/21/19 23:59 23:59 23:59 23:59 Intake Total 590 1160 20 160 Output Total 500 1040 Balance 590 1160 -480 -880 Weight 90.31 kg Gen: mildly tachypneic at rest Heart: RRR Lung: scattered rhonchi Abd: soft, nontender Ext: + edema CBC, BMP 07/21/19 05:40 07/21/19 05:40 Active Medications Acetaminophen (Tylenol -) 650 mg PO Q4H PRN PRN Reason: TEMP >100.4 Last Admin: 07/21/19 06:56 Dose: 650 mg Albuterol Sulfate (Ventolin Hfa Inhaler -) 2 puff IH Q6H PRN PRN Reason: SHORTNESS OF BREATH Albuterol Sulfate (Ventolin 0.083% Nebulizer Soln -) 1 amp NEB Q4H PRN PRN Reason: SHORT OF BREATH/WHEEZING Last Admin: 07/21/19 02:28 Dose: 1 amp Albuterol/Ipratropium (Duoneb -) 1 amp NEB RQID [facility]ER[facility] Chlorhexidine Gluconate (Hibiclens For Decolonization -) 1 applic TP HS [facility]ERMIT Last Admin: 07/20/19 22:29 Dose: 1 applic Guaifenesin/Codeine Phosphate (Robitussin Ac -) 10 ml PO Q4H PRN PRN Reason: COUGH Last Admin: 07/21/19 09:41 Dose: 10 ml Heparin Sodium (Porcine) (Heparin -) 5,000 unit SQ TID [facility] Last Admin: 07/21/19 09:41 Dose: 5,000 unit Piperacillin Sod/Tazobactam (Sod 3.375 gm/ Dextrose) 50 mls @ 100 mls/hr IVPB Q8H-IV KERMIT; Protocol Methylprednisolone Sodium Succinate (Solu-Medrol -) 40 mg IVPUSH Q8H-IV KERMIT Metoprolol Succinate (Toprol Xl -) 50 mg PO DAILY [facility] Last Admin: 07/21/19 09:43 Dose: 50 mg Mupirocin (Bactroban Ointment (For Decolonization) -) 1 applic NS BID [facility] Stop: 07/25/19 21:59 Last Admin: 07/21/19 09:44 Dose: 1 applic Phenytoin Sodium (Dilantin -) 200 mg PO BID [facility] Last Admin: 07/21/19 09:43 Dose: 200 mg Polyethylene Glycol (Miralax (For Daily Use) -) 17 gm PO DAILY [facility] Last Admin: 07/21/19 10:02 Dose: 17 gm Rosuvastatin Calcium (Crestor -) 20 mg PO HS [facility] Tamsulosin HCl (Flomax -) 0.4 mg PO DAILY@0830 [facility] Last Admin: 07/21/19 09:44 Dose: 0.4 mg Zolpidem Tartrate (Ambien -) 5 mg PO HS PRN PRN Reason: INSOMNIA ASSESSMENT AND PLAN: Likely Progressive Lung Cancer - suspect small cell lung cancer Pleural Effusion likely malignant s/p thoracentesis s/p CT guided Lung Biopsy Right Pneumothorax s/p chest tube placement r/o SVC syndrome r/o Pneumonia Hyponatremia Lactic Acidosis Atrial Fibrillation Hyperlipidemia - f/u cytology, pathology - MRI brain for staging - inhaled bronchodilators - on empiric medrol - keep chest tube to low wall suction - daily CXR while chest tube in place - pain control - cough suppressants - on empiric antibiotics - rate control - O2 to keep SpO2 >90% - DVT prophylaxis - poor overall prognosis
[2019-07-21] MEDS ORDERED: PROMETHAZINE HCL 25 MG TABLET PO PRN (11:32)
--- NOTE | 2019-07-21 12:20 | CON.ID ---
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 constipation) Hepatobiliary: Yes: Other (? liver mets ct pnd) Renal/: Yes: BPH, UTI Infectious Disease: Yes: Other (wbc [id number]) Musculoskeletal: Yes: Osteoarthritis ENT: Yes: Sinusitis - Past Surgical History Past Surgical History: Yes: None - Alcohol/Substance Use Hx Alcohol Use: No - Smoking History Smoking history: Former smoker Have you smoked in the past 12 months: No Aproximately how many cigarettes per day: 0 - Social History ADL: Independent Home Medications - Allergies Allergies/Adverse Reactions: Allergies Allergy/AdvReac Type Severity Reaction Status Date / Time No Known Allergies Allergy Verified 07/16/19 14:12 - Home Medications Home Medications: Ambulatory Orders Metoprolol Succinate 25 mg PO DAILY 01/21/19 Albuterol Sulfate [Proair Hfa] 2 neb IH Q4H 07/16/19 Promethazine HCl [Phenergan Liquid -] 12.5 mg PO Q4H 07/16/19 Physical Exam Vital Signs: Vital Signs Temperature 97.4 F L 07/21/19 10:00 Pulse Rate 100 H 07/21/19 10:00 Respiratory Rate 22 H 07/21/19 10:00 Blood Pressure 113/49 L 07/21/19 10:00 O2 Sat by Pulse Oximetry (%) 92 L 07/21/19 09:00 Labs: CBC, BMP 07/21/19 05:40 07/21/19 05:40
--- NOTE | 2019-07-21 13:42 | CONSULT ---
Consult - text type - Consultation Consultation Note: NEUROLOGY CONSULTATION is greatly appreciated: Events reviewed and discussed with Dr. Lasha Duarte last night and this AM. Discussed with ICU resident last night. Pateint examined by me this AM with his 2 sons present in the ICU. This 68 yo RH, M man with h/o Chol and Afib is maintained on Crestor and Toprol. Admitted with progressive SOB with right lung and pleural mass for biopsy. Yesterday had biopsy and right chest tube. In the evening, his family witnessed a prolonged coughing spell associated with his eyes "rolling back" and 5-10 seconds of unresponsiveness. Apparently NOT witnessed by staff members. Pt was found, seated in chair, awake and alert, by the time hospitalist responded to code. CT of head (C-) reviewed by me: Essentially normal study without obvious masses or mass effect. Loaded with cerebyx 1000 PE. Dilantin 200 mg PO BID began this morning. No further events. Son's describe their father's normal cognition. No report of Headaches, etc. MARK: Chest tube right chest. Neck supple. No bruits. No evidence of external head trauma NEURO: Awake, alert, Ox3. Fluent spech in Uzbek CN II-XII: Normal Motor: No drift or tremor. Normal strength, tone and bulk. Normal reflexes. Toes downgoing. Coord: No FTN dystaxia Sensory: Normal IMP: Normal neurological exam. Possible seizure. Consider also, Vasovagal (post-tussive) Syncope. 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 Continue Phenytoin 200 mg PO q 12 hrs. Check dilantin level in 72 hrs. Oncology consultation Thank you very much, Camedn Sprague MD
[2019-07-21] MEDS: PANTOPRAZOLE SODIUM 40 MG VIAL IVPUSH SCH (14:23)
--- NOTE | 2019-07-21 14:48 | EKG ---
Test Reason : Blood Pressure : / mmHG Vent. Rate : 110 BPM Atrial Rate : 110 BPM P-R Int : 172 ms QRS Dur : 102 ms QT Int : 322 ms P-R-T Axes : 055 023 050 degrees QTc Int : 435 ms POOR DATA QUALITY, INTERPRETATION MAY BE ADVERSELY AFFECTED SINUS TACHYCARDIA OTHERWISE NORMAL ECG WHEN COMPARED WITH ECG OF 17-JUL-2019 09:12, PREMATURE VENTRICULAR COMPLEXES ARE NO LONGER PRESENT Confirmed by TALAT FOLEY, JIAN ([id number]) on 07/21/2019 2:48:08 PM Referred By: Confirmed By:JIAN GILLILAND MD
--- NOTE | 2019-07-21 14:55 | PN ---
Physical Exam: SUBJECTIVE: Patient seen and examined in ICU. Pt coughing with pleuritic chest pain, sob on NC satting low 90's. OBJECTIVE: Vital Signs Period Temp Pulse Resp BP Sys/Clifton Pulse Ox Last 24 Hr 97.4 F-98.9 F 96-116 15-24 92-146/49-73 92-94 GENERAL: The patient is awake, alert, and fully oriented, sob, with pleuritic cp. NECK: supple. LUNGS: Breath sounds equal, crackles at bases. HEART: Regular rate and rhythm, S1, S2 without murmur, rub or gallop. ABDOMEN: Soft, nontender, nondistended, normoactive bowel sounds EXTREMITIES: 2+ pulses, warm, well-perfused, no edema. SKIN: Warm, dry, no rashes or lesions noted Laboratory Results - last 24 hr 07/20/19 07/20/19 07/20/19 20:45 20:45 20:56 WBC 9.4 RBC 3.66 L Hgb 10.4 L Hct 31.4 L MCV 85.7 MCH 28.4 MCHC 33.2 RDW 16.7 H Plt Count 474 H MPV 7.3 L Absolute Neuts (auto) 8.4 H Neutrophils % 89.7 H Lymphocytes % 6.5 L D Monocytes % 3.6 L Eosinophils % 0.1 D Basophils % 0.1 Nucleated RBC % 0 Anticoagulation Therapy No Result Required. Puncture Site Right radial ABG pH 7.43 ABG pCO2 at Pt Temp 34.0 L ABG pO2 at Pt Temp 52.6 L ABG HCO3 22.4 ABG O2 Sat (Measured) 86.6 L ABG O2 Content 12.6 ABG Base Excess -0.9 Manjit Test Positive O2 Delivery Device N/c Oxygen Flow Rate 3l Vent Mode No Result Required. Vent Rate No Result Required. Mechanical Rate No Result Required. Pressure Support Vent No Result Required. Sodium 132 L Potassium 4.6 Chloride 96 L Carbon Dioxide 23 Anion Gap 13 BUN 35.8 H Creatinine 1.2 Est GFR (CKD-EPI)AfAm 71.08 Est GFR (CKD-EPI)NonAf 61.33 Random Glucose 143 H Lactic Acid Calcium 8.5 Total Bilirubin 0.4 AST 33 ALT 27 Alkaline Phosphatase 159 H LD Total Creatine Kinase 185 Creatine Kinase Index 1.1 CK-MB (CK-2) 2.2 Troponin I < 0.02 Total Protein 6.2 L Albumin 2.2 L 07/21/19 07/21/19 07/21/19 05:40 05:40 12:36 WBC 6.8 RBC 3.49 L Hgb 10.0 L Hct 29.6 L MCV 84.8 MCH 28.6 MCHC 33.7 RDW 16.6 H Plt Count 476 H MPV 7.3 L Absolute Neuts (auto) Neutrophils % Lymphocytes % Monocytes % Eosinophils % Basophils % Nucleated RBC % Anticoagulation Therapy Puncture Site ABG pH ABG pCO2 at Pt Temp ABG pO2 at Pt Temp ABG HCO3 ABG O2 Sat (Measured) ABG O2 Content ABG Base Excess Manjit Test O2 Delivery Device Oxygen Flow Rate Vent Mode Vent Rate Mechanical Rate Pressure Support Vent Sodium 131 L Potassium 4.5 Chloride 95 L Carbon Dioxide 24 Anion Gap 12 BUN 32.5 H Creatinine 1.1 Est GFR (CKD-EPI)AfAm 78.97 Est GFR (CKD-EPI)NonAf 68.13 Random Glucose 169 H Lactic Acid Calcium 8.3 L Total Bilirubin AST ALT Alkaline Phosphatase LD Total 235 Creatine Kinase Creatine Kinase Index CK-MB (CK-2) Troponin I Total Protein Albumin 07/21/19 12:36 WBC RBC Hgb Hct MCV MCH MCHC RDW Plt Count MPV Absolute Neuts (auto) Neutrophils % Lymphocytes % Monocytes % Eosinophils % Basophils % Nucleated RBC % Anticoagulation Therapy Puncture Site ABG pH ABG pCO2 at Pt Temp ABG pO2 at Pt Temp ABG HCO3 ABG O2 Sat (Measured) ABG O2 Content ABG Base Excess Manjit Test O2 Delivery Device Oxygen Flow Rate Vent Mode Vent Rate Mechanical Rate Pressure Support Vent Sodium Potassium Chloride Carbon Dioxide Anion Gap BUN Creatinine Est GFR (CKD-EPI)AfAm Est GFR (CKD-EPI)NonAf Random Glucose Lactic Acid 5.6 H* Calcium Total Bilirubin AST ALT Alkaline Phosphatase LD Total Creatine Kinase Creatine Kinase Index CK-MB (CK-2) Troponin I Total Protein Albumin Active Medications Generic Name Dose Route Start Last Admin Trade Name Freq PRN Reason Stop Dose Admin Acetaminophen 650 mg 07/20/19 23:16 07/21/19 06:56 Tylenol - PO 650 mg Q4H PRN Administration TEMP >100.4 Albuterol Sulfate 2 puff 07/20/19 23:16 Ventolin Hfa Inhaler - IH Q6H PRN SHORTNESS OF BREATH Albuterol Sulfate 1 amp 07/21/19 02:22 07/21/19 02:28 Ventolin 0.083% Nebulizer Soln - NEB 1 amp Q4H PRN Administration SHORT OF BREATH/WHEEZING Albuterol/Ipratropium 1 amp 07/21/19 08:00 07/21/19 11:50 Duoneb - NEB 1 amp RQID KERMIT Administration Chlorhexidine Gluconate 1 applic 07/20/19 22:00 07/20/19 22:29 Hibiclens For Decolonization - TP 1 applic HS KERMIT Administration Heparin Sodium (Porcine) 5,000 unit 07/21/19 07:45 07/21/19 09:41 Heparin - SQ 5,000 unit TID KERMIT Administration Piperacillin Sod/Tazobactam 50 mls @ 100 mls/hr 07/21/19 18:00 Sod 3.375 gm/ Dextrose IVPB Q8H-IV KERMIT Protocol Methylprednisolone Sodium Succinate 40 mg 07/21/19 18:00 Solu-Medrol - IVPUSH Q8H-IV KERMIT Metoprolol Succinate 50 mg 07/21/19 10:00 07/21/19 09:43 Toprol Xl - PO 50 mg DAILY KERMIT Administration Mupirocin 1 applic 07/20/19 22:00 07/21/19 09:44 Bactroban Ointment (For Decolonization) - NS 07/25/19 21:59 1 applic BID KERMIT Administration Pantoprazole Sodium 40 mg 07/21/19 11:45 07/21/19 14:23 Protonix Iv IVPUSH 40 mg DAILY KERMIT Administration Phenytoin Sodium 200 mg 07/21/19 07:00 07/21/19 09:43 Dilantin - PO 200 mg BID KERMIT Administration Polyethylene Glycol 17 gm 07/21/19 08:15 07/21/19 11:27 Miralax (For Daily Use) - PO Not Given DAILY KERMIT Promethazine HCl 12.5 mg 07/21/19 11:32 Phenergan - PO Q6H PRN NAUSEA AND/OR VOMITING Rosuvastatin Calcium 20 mg 07/21/19 22:00 Crestor - PO HS KERMIT Tamsulosin HCl 0.4 mg 07/21/19 08:30 07/21/19 09:44 Flomax - PO 0.4 mg DAILY@0830 KERMIT Administration Zolpidem Tartrate 5 mg 07/20/19 23:16 Ambien - PO HS PRN INSOMNIA ASSESSMENT/PLAN: This is a 68 y/o male with PMH of a-fib, HLD, mediastinal mass, POD #0 from supraclavicular lymph node biopsy, transferred to the ICU for higher level of care after possible seizure like activity. #Neuro: seizure like activity vs vasovagal syncope -fosphenytoin 1g loading dose yesterday -seizure precautions -neuro consult (Dr. Sprague): dilantin 200 mg BID until source identified but in all likelihood it will be for life. -head CT shows no acute intracranial bleed or mass effect, but some ? mass -MRI w w/o contrast tomorrow to assess for cause of ? seizure like activity, or cerebral mass. #Cardio: chronic a-fib and HLD -heparin 5000TID initiated -continue crestor - c/w metoprolol 50 - echo normal EF 60% in past no sign of CHF although anasarca possibly 2/2 SVC syndrome vs diastolic CHF. #Resp: right pneumothorax/ probable small cell lung CA -chest tube placed - chest tube output 550cc, no air leaks - Pleural effusion tap per lights criteria depicting an exudative effusion, cytology pending and this will determine the staging of the CA. - CT chest showing a central lesion - CT abd pelvis no sign of liver mets. -continue duonebs - steroids 40q8. - heme onc consulted- believe it is likely to be stage IV lung CA and will initiate w/u #Onc: s/p supraclavicular LN biopsy -awaiting biopsy report #F/E/N -daily lytes, replete PRN -regular diet #Dispo: Spoke with family regarding code status and the patient would like to be DNR/DNI. Patient is compitent enough to make this decision on his own and the family are respectful of his wishes. Primary doctor Felicia is aware. Visit type - Emergency Visit Emergency Visit: Yes ED Registration Date: 07/16/19 Care time: The patient presented to the Emergency Department on the above date and was hospitalized for further evaluation of their emergent condition. - New Patient This patient is new to me today: Yes Date on this admission: 07/21/19 - Critical Care Critical Care patient: Yes Total Critical Care Time (in minutes): 40 Critical Care Statement: The care of this patient involved high complexity decision making to prevent further life threatening deterioration of the patient 's condition and/or to evaluate & treat vital organ system(s) failure or risk of failure. - Discharge Referral Referred to [facility] No ATTENDING PHYSICIAN STATEMENT I saw and evaluated the patient. I reviewed the resident's note and discussed the case with the resident. I agree with the resident's findings and plan as documented. SUBJECTIVE: OBJECTIVE: ASSESSMENT AND PLAN:
--- NOTE | 2019-07-21 15:27 | CONSULT ---
Consultation: REQUESTING PROVIDER: Dr. Chad Duarte Sr. CONSULT REQUEST: Hematology and oncology We have been asked to medically evaluate this patient for mediastinal mass. HISTORY OF PRESENT ILLNESS: The patient is a 68 yo m w/ PMH HLD, Afib(on ASA) and suspected lung mass who presented to the ED from Dr. Chad Duarte Sr.'s office c/o progressive SOB and generalized weakness. The patient underwent IR guided biopsy 07/19/19. His post procedure course was complicated by development of a pneumothorax requiring chest tube placement. After all this, the patient was witnessed coughing and turning red, then displayed "shaking with eyes rolled back into his head" not witnessed by hospital staff. Neuro was consulted and the patient was transferred to the ICU. Patient was also found to have a plural effusion and underwent thoracentesis. The fluid was found to be exudative and the results of cytology and the original biopsy are still pending. On my interview, the patient felt well with no major complaints. He endorses a cough but states that his SOB is improved today. Denies fever, chills, abdominal pain. REVIEW OF SYSTEMS: CONSTITUTIONAL: Absent: fever, chills, diaphoresis, generalized weakness, malaise, loss of appetite, weight change HEENT: Absent: rhinorrhea, nasal congestion, throat pain, throat swelling, difficulty swallowing, mouth swelling, ear pain, eye pain, visual changes CARDIOVASCULAR: Absent: syncope, palpitations, irregular heart rate, lightheadedness, peripheral edema RESPIRATORY: Absent: orthopnea, wheezing, stridor, hemoptysis GASTROINTESTINAL: Absent: abdominal pain, abdominal distension, nausea, vomiting, diarrhea, constipation, melena, hematochezia GENITOURINARY: Absent: dysuria, frequency, urgency, hesitancy, hematuria, flank pain, genital pain MUSCULOSKELETAL: Absent: myalgia, arthralgia, joint swelling, back pain, neck pain SKIN: Absent: rash, itching, pallor HEMATOLOGIC/IMMUNOLOGIC: Absent: easy bleeding, easy bruising, lymphadenopathy, frequent infections ENDOCRINE: Absent: unexplained weight gain, unexplained weight loss, heat intolerance, cold intolerance NEUROLOGIC: Absent: headache, focal weakness or paresthesias, dizziness, unsteady gait, seizure, mental status changes, bladder or bowel incontinence PSYCHIATRIC: Absent: anxiety, depression, suicidal or homicidal ideation, hallucinations. PHYSICAL EXAMINATION Vital Signs - 24 hr 07/20/19 07/20/19 07/20/19 16:00 19:30 19:38 Temperature 98.7 F 98.9 F Pulse Rate 116 H 103 H Respiratory 22 H 20 Rate Blood Pressure 109/52 L 119/66 O2 Sat by Pulse 94 L Oximetry (%) 07/20/19 07/20/19 07/20/19 19:50 19:55 20:00 Temperature Pulse Rate 115 H 109 H 109 H Respiratory 22 H 22 H 22 H Rate Blood Pressure 146/70 125/63 112/64 O2 Sat by Pulse Oximetry (%) 07/20/19 07/21/19 07/21/19 21:45 00:00 00:11 Temperature 98.1 F 98.1 F Pulse Rate 104 H 104 H Respiratory 23 H 23 H Rate Blood Pressure 121/50 L 121/50 L O2 Sat by Pulse 94 L Oximetry (%) 07/21/19 07/21/19 07/21/19 02:11 04:00 06:00 Temperature 98.2 F 98.2 F 98.2 F Pulse Rate 101 H 97 H 105 H Respiratory 17 15 23 H Rate Blood Pressure 134/55 L 110/56 L 92/73 O2 Sat by Pulse Oximetry (%) 07/21/19 07/21/19 07/21/19 08:00 09:00 10:00 Temperature 97.4 F L Pulse Rate 105 H 100 H Respiratory 18 22 H Rate Blood Pressure 118/57 L 113/49 L O2 Sat by Pulse 92 L Oximetry (%) 07/21/19 07/21/19 12:00 14:00 Temperature Pulse Rate 97 H 96 H Respiratory 22 H 24 H Rate Blood Pressure 113/68 115/60 O2 Sat by Pulse Oximetry (%) GENERAL: Awake, alert, and fully oriented, in no acute distress. EYES: Pupils equal, round and reactive to light, extraocular movements intact, sclera anicteric, conjunctiva clear. No lid lag. LUNGS: Breath sounds equal, clear to auscultation bilaterally. No wheezes, and no crackles. No accessory muscle use. right sided chest tube in place draining serosanguinous fluid. HEART: Regular rate and rhythm, normal S1 and S2 without murmur, rub or gallop. ABDOMEN: Soft, nontender, not distended, normoactive bowel sounds. LOWER EXTREMITIES: 2+ pulses, warm, well-perfused. No calf tenderness. No peripheral edema. NEUROLOGICAL: Cranial nerves II-X intact. Normal speech. Laboratory Results - last 24 hr 07/20/19 07/20/19 07/20/19 20:45 20:45 20:56 WBC 9.4 RBC 3.66 L Hgb 10.4 L Hct 31.4 L MCV 85.7 MCH 28.4 MCHC 33.2 RDW 16.7 H Plt Count 474 H MPV 7.3 L Absolute Neuts (auto) 8.4 H Neutrophils % 89.7 H Lymphocytes % 6.5 L D Monocytes % 3.6 L Eosinophils % 0.1 D Basophils % 0.1 Nucleated RBC % 0 Anticoagulation Therapy No Result Required. Puncture Site Right radial ABG pH 7.43 ABG pCO2 at Pt Temp 34.0 L ABG pO2 at Pt Temp 52.6 L ABG HCO3 22.4 ABG O2 Sat (Measured) 86.6 L ABG O2 Content 12.6 ABG Base Excess -0.9 Manjit Test Positive O2 Delivery Device N/c Oxygen Flow Rate 3l Vent Mode No Result Required. Vent Rate No Result Required. Mechanical Rate No Result Required. Pressure Support Vent No Result Required. Sodium 132 L Potassium 4.6 Chloride 96 L Carbon Dioxide 23 Anion Gap 13 BUN 35.8 H Creatinine 1.2 Est GFR (CKD-EPI)AfAm 71.08 Est GFR (CKD-EPI)NonAf 61.33 Random Glucose 143 H Lactic Acid Calcium 8.5 Total Bilirubin 0.4 AST 33 ALT 27 Alkaline Phosphatase 159 H LD Total Creatine Kinase 185 Creatine Kinase Index 1.1 CK-MB (CK-2) 2.2 Troponin I < 0.02 Total Protein 6.2 L Albumin 2.2 L 07/21/19 07/21/19 07/21/19 05:40 05:40 12:36 WBC 6.8 RBC 3.49 L Hgb 10.0 L Hct 29.6 L MCV 84.8 MCH 28.6 MCHC 33.7 RDW 16.6 H Plt Count 476 H MPV 7.3 L Absolute Neuts (auto) Neutrophils % Lymphocytes % Monocytes % Eosinophils % Basophils % Nucleated RBC % Anticoagulation Therapy Puncture Site ABG pH ABG pCO2 at Pt Temp ABG pO2 at Pt Temp ABG HCO3 ABG O2 Sat (Measured) ABG O2 Content ABG Base Excess Manjit Test O2 Delivery Device Oxygen Flow Rate Vent Mode Vent Rate Mechanical Rate Pressure Support Vent Sodium 131 L Potassium 4.5 Chloride 95 L Carbon Dioxide 24 Anion Gap 12 BUN 32.5 H Creatinine 1.1 Est GFR (CKD-EPI)AfAm 78.97 Est GFR (CKD-EPI)NonAf 68.13 Random Glucose 169 H Lactic Acid Calcium 8.3 L Total Bilirubin AST ALT Alkaline Phosphatase LD Total 235 Creatine Kinase Creatine Kinase Index CK-MB (CK-2) Troponin I Total Protein Albumin 07/21/19 12:36 WBC RBC Hgb Hct MCV MCH MCHC RDW Plt Count MPV Absolute Neuts (auto) Neutrophils % Lymphocytes % Monocytes % Eosinophils % Basophils % Nucleated RBC % Anticoagulation Therapy Puncture Site ABG pH ABG pCO2 at Pt Temp ABG pO2 at Pt Temp ABG HCO3 ABG O2 Sat (Measured) ABG O2 Content ABG Base Excess Manjit Test O2 Delivery Device Oxygen Flow Rate Vent Mode Vent Rate Mechanical Rate Pressure Support Vent Sodium Potassium Chloride Carbon Dioxide Anion Gap BUN Creatinine Est GFR (CKD-EPI)AfAm Est GFR (CKD-EPI)NonAf Random Glucose Lactic Acid 5.6 H* Calcium Total Bilirubin AST ALT Alkaline Phosphatase LD Total Creatine Kinase Creatine Kinase Index CK-MB (CK-2) Troponin I Total Protein Albumin Active Medications Generic Name Dose Route Start Last Admin Trade Name Freq PRN Reason Stop Dose Admin Acetaminophen 650 mg 07/20/19 23:16 07/21/19 06:56 Tylenol - PO 650 mg Q4H PRN Administration TEMP >100.4 Albuterol Sulfate 2 puff 07/20/19 23:16 Ventolin Hfa Inhaler - IH Q6H PRN SHORTNESS OF BREATH Albuterol Sulfate 1 amp 07/21/19 02:22 07/21/19 02:28 Ventolin 0.083% Nebulizer Soln - NEB 1 amp Q4H PRN Administration SHORT OF BREATH/WHEEZING Albuterol/Ipratropium 1 amp 07/21/19 08:00 07/21/19 11:50 Duoneb - NEB 1 amp RQID KERMIT Administration Chlorhexidine Gluconate 1 applic 07/20/19 22:00 07/20/19 22:29 Hibiclens For Decolonization - TP 1 applic HS KERMIT Administration Heparin Sodium (Porcine) 5,000 unit 07/21/19 07:45 07/21/19 09:41 Heparin - SQ 5,000 unit TID KERMIT Administration Piperacillin Sod/Tazobactam 50 mls @ 100 mls/hr 07/21/19 18:00 Sod 3.375 gm/ Dextrose IVPB Q8H-IV KERMIT Protocol Methylprednisolone Sodium Succinate 40 mg 07/21/19 18:00 Solu-Medrol - IVPUSH Q8H-IV KERMIT Metoprolol Succinate 50 mg 07/21/19 10:00 07/21/19 09:43 Toprol Xl - PO 50 mg DAILY KERMIT Administration Mupirocin 1 applic 07/20/19 22:00 07/21/19 09:44 Bactroban Ointment (For Decolonization) - NS 07/25/19 21:59 1 applic BID KERMIT Administration Pantoprazole Sodium 40 mg 07/21/19 11:45 07/21/19 14:23 Protonix Iv IVPUSH 40 mg DAILY EKRMIT Administration Phenytoin Sodium 200 mg 07/21/19 07:00 07/21/19 09:43 Dilantin - PO 200 mg BID KERMIT Administration Polyethylene Glycol 17 gm 07/21/19 08:15 07/21/19 11:27 Miralax (For Daily Use) - PO Not Given DAILY KERMIT Promethazine HCl 12.5 mg 07/21/19 11:32 Phenergan - PO Q6H PRN NAUSEA AND/OR VOMITING Rosuvastatin Calcium 20 mg 07/21/19 22:00 Crestor - PO HS KERMIT Tamsulosin HCl 0.4 mg 07/21/19 08:30 07/21/19 09:44 Flomax - PO 0.4 mg DAILY@0830 KERMIT Administration Zolpidem Tartrate 5 mg 07/20/19 23:16 Ambien - PO HS PRN INSOMNIA ASSESSMENT/PLAN: The patient is a 68 yo m w/ PMH HLD, Afib(on ASA) and suspected lung mass who presented to the ED from Dr. Chad Duarte Sr.'s office c/o progressive SOB and generalized weakness. Hematology consulted for assistance with further management if biopsy malignant. #Mediastinal mass with pleural effusion likely 2/2 malignant process -CTA on admission showed: -right hilar mass measuring 8 x 7.5 x 7.5cm extending into the mediastinum with indentation into the SVC -2.3 cm RUL nodule -Several 1cm nodules in the LLL -Left hilar lymphadenopathy -S/p biopsy of RUL nodule -awaiting pathology results -will add PDL1 and stage 4 lung Ca mutation workup -s/p thoracentesis for right sided pleural effusion -fluid exudative by light's criteria -awaiting cytology results -will discuss interventions with family once pathology back -above findings very concerning for stage 4 lung Ca Dispo: We will continue to follow the patient. Thank you for this consultative opportunity. Visit type - Emergency Visit Emergency Visit: Yes ED Registration Date: 07/16/19 Care time: The patient presented to the Emergency Department on the above date and was hospitalized for further evaluation of their emergent condition. - New Patient This patient is new to me today: Yes Date on this admission: 07/21/19 - Critical Care Critical Care patient: Yes Total Critical Care Time (in minutes): 40 Critical Care Statement: The care of this patient involved high complexity decision making to prevent further life threatening deterioration of the patient 's condition and/or to evaluate & treat vital organ system(s) failure or risk of failure. ATTENDING PHYSICIAN STATEMENT I saw and evaluated the patient. I reviewed the resident's note and discussed the case with the resident. I agree with the resident's findings and plan as documented. SUBJECTIVE: OBJECTIVE: ASSESSMENT AND PLAN:
--- NOTE | 2019-07-21 19:06 | PN ---
Teaching Attending Note Name of Resident: Joni Thibodeaux ATTENDING PHYSICIAN STATEMENT I saw and evaluated the patient. I reviewed the resident's note and discussed the case with the resident. I agree with the resident's findings and plan as documented. ASSESSMENT AND PLAN: The patient is a 68 yo m w/ PMH HLD, Afib(on ASA) and recent onset SOB-- CT chest -- right hilar mass measuring 8 x 7.5 x 7.5cm extending into the mediastinum with indentation into the SVC -2.3 cm RUL nodule -Several 1cm nodules in the LLL -Left hilar lymphadenopathy -S/p biopsy of RUL nodule with pneumothorax -awaiting pathology results -will add PDL1 and mutational analysis -s/p thoracentesis for right sided pleural effusion -fluid exudative -awaiting cytology results will need MRI brain once chest tube is out or CT head with and without discussed with family
[2019-07-21] MEDS ORDERED: guaiFENesin/CODEINE 10 ML UNIT-DOSE CUPS PO PRN (19:20)
[2019-07-21] MEDS ORDERED: SODIUM CHLORIDE 1,000 ML IV STA (19:22)
[2019-07-21] MEDS: SODIUM CHLORIDE 1,000 ML IV SCH (21:41)
[2019-07-21] MEDS: ROSUVASTATIN CA 20 MG TABLET (FP) PO SCH (21:41)
[2019-07-21] MEDS: CHLORHEXIDINE GLUCONATE 4% CLEANSER FOR DECOLONIZATION TP SCH (22:41)
[2019-07-22] MEDS ORDERED: PIPERACILLIN/TAZOBACTAM 3.375 GM VIAL IVPB ONE ×4 (01:33→23:07)
[2019-07-22] MEDS ORDERED: DEXTROSE 5%-WATER - 50 ML IVPB ONE ×4 (01:34→23:08)
[2019-07-22] MEDS: PIPERACILLIN/TAZOB 3.375 GM 3.375 GM in DEXTROSE 5%-WATER - 50 ML IVPB SCH ×3 (02:06→17:40)
[2019-07-22] MEDS: methylPREDNISolone NA SUCC 40 MG/1 ML VIAL IVPUSH SCH ×3 (02:06→18:41)
[2019-07-22] MEDS: ACETAMINOPHEN 325 MG TABLET (FP) PO PRN (02:42)
[2019-07-22] MEDS: HEPARIN NA (PORCINE) 5,000 UNITS/ML 1ML VIAL SQ SCH ×3 (06:30→21:18)
[2019-07-22] MEDS: SODIUM CHLORIDE 1,000 ML IV SCH (06:31)
[2019-07-22 06:50] LABS: BASO % 0.2 % (0-2.0); HEMATOCRIT 29.1 % (35.4-49); HEMOGLOBIN 9.8 GM/dL (11.7-16.9); LYMPH % 4.7 % (8-40); MCH 28.6 pg (25.7-33.7); MCHC 33.7 g/dl (32.0-35.9); MONO % 7.3 % (3.8-10.2); NEUT % 87.8 % (42.8-82.8); PLATELET COUNT 535 K/MM3 (134-434); RBC 3.43 M/mm3 (4.00-5.60); RDW 16.7 % (11.9-15.9); WHITE BLOOD COUNT 14.5 K/mm3 (4.0-10.0)
--- NOTE | 2019-07-22 07:13 | PN ---
Physical Exam: SUBJECTIVE: Patient seen and examined in ICU. Pt became agitated and hypoxemic after being given his ambien. Pt was placed on non-rebreather which improved his hypoxemia. Pt was placed in a alena to prevent him from getting out of bed and from pulling out chest tube. OBJECTIVE: Vital Signs Period Temp Pulse Resp BP Sys/Clifton Pulse Ox Last 24 Hr 97.4 F-98.4 F 69-108 18-26 109-155/49-69 92-100 GENERAL: The patient is awake, alert, and fully oriented on nonrebreather, no acute distress currently. NECK: supple. LUNGS: Breath sounds equal, crackles at bases, no wheezing or stridor appreciated. HEART: Regular rate and rhythm, S1, S2 without murmur, rub or gallop. ABDOMEN: Soft, nontender, nondistended, normoactive bowel sounds EXTREMITIES: 2+ pulses, warm, well-perfused, edematous in b/l LE's, upper extremity worsened edema on RUE. SKIN: Warm, dry, no rashes or lesions noted Laboratory Results - last 24 hr 07/21/19 07/21/19 07/21/19 05:40 05:40 12:36 WBC 6.8 RBC 3.49 L Hgb 10.0 L Hct 29.6 L MCV 84.8 MCH 28.6 MCHC 33.7 RDW 16.6 H Plt Count 476 H MPV 7.3 L Absolute Neuts (auto) Neutrophils % Lymphocytes % Monocytes % Eosinophils % Basophils % Nucleated RBC % Sodium 131 L Potassium 4.5 Chloride 95 L Carbon Dioxide 24 Anion Gap 12 BUN 32.5 H Creatinine 1.1 Est GFR (CKD-EPI)AfAm 78.97 Est GFR (CKD-EPI)NonAf 68.13 Random Glucose 169 H Lactic Acid Calcium 8.3 L LD Total 235 Prostate Specific Ag 07/21/19 07/21/19 07/21/19 12:36 12:36 21:30 WBC RBC Hgb Hct MCV MCH MCHC RDW Plt Count MPV Absolute Neuts (auto) Neutrophils % Lymphocytes % Monocytes % Eosinophils % Basophils % Nucleated RBC % Sodium Potassium Chloride Carbon Dioxide Anion Gap BUN Creatinine Est GFR (CKD-EPI)AfAm Est GFR (CKD-EPI)NonAf Random Glucose Lactic Acid 5.6 H* 5.0 H* Calcium LD Total Prostate Specific Ag 19.00 H 07/22/19 06:20 WBC 14.5 H RBC 3.43 L Hgb 9.8 L Hct 29.1 L MCV 85.0 MCH 28.6 MCHC 33.7 RDW 16.7 H Plt Count 535 H MPV 7.0 L Absolute Neuts (auto) 12.8 H Neutrophils % 87.8 H Lymphocytes % 4.7 L D Monocytes % 7.3 D Eosinophils % 0.0 D Basophils % 0.2 Nucleated RBC % 0 Sodium Potassium Chloride Carbon Dioxide Anion Gap BUN Creatinine Est GFR (CKD-EPI)AfAm Est GFR (CKD-EPI)NonAf Random Glucose Lactic Acid Calcium LD Total Prostate Specific Ag Active Medications Generic Name Dose Route Start Last Admin Trade Name Freq PRN Reason Stop Dose Admin Acetaminophen 650 mg 07/20/19 23:16 07/22/19 02:42 Tylenol - PO 650 mg Q4H PRN Administration TEMP >100.4 Albuterol Sulfate 2 puff 07/20/19 23:16 Ventolin Hfa Inhaler - IH Q6H PRN SHORTNESS OF BREATH Albuterol Sulfate 1 amp 07/21/19 02:22 07/21/19 02:28 Ventolin 0.083% Nebulizer Soln - NEB 1 amp Q4H PRN Administration SHORT OF BREATH/WHEEZING Albuterol/Ipratropium 1 amp 07/21/19 08:00 07/21/19 21:04 Duoneb - NEB 1 amp RQID [facility] Administration Chlorhexidine Gluconate 1 applic 07/20/19 22:00 07/21/19 22:41 Hibiclens For Decolonization - TP 1 applic HS [facility] Administration Guaifenesin/Codeine Phosphate 10 ml 07/21/19 19:20 07/21/19 19:27 Robitussin Ac - PO 10 ml Q8H PRN Administration COUGH Heparin Sodium (Porcine) 5,000 unit 07/21/19 07:45 07/22/19 06:30 Heparin - SQ 5,000 unit TID [facility] Administration Piperacillin Sod/Tazobactam 50 mls @ 100 mls/hr 07/21/19 18:00 07/22/19 02:06 Sod 3.375 gm/ Dextrose IVPB 100 mls/hr Q8H-IV [facility] Administration Protocol Sodium Chloride 1,000 mls @ 100 mls/hr 07/21/19 19:30 07/22/19 06:31 Normal Saline - IV 100 mls/hr ASDIR [facility] Administration Methylprednisolone Sodium Succinate 40 mg 07/21/19 18:00 07/22/19 02:06 Solu-Medrol - IVPUSH 40 mg Q8H-IV [facility] Administration Metoprolol Succinate 50 mg 07/21/19 10:00 07/21/19 09:43 Toprol Xl - PO 50 mg DAILY [facility] Administration Mupirocin 1 applic 07/20/19 22:00 07/21/19 22:41 Bactroban Ointment (For Decolonization) - NS 07/25/19 21:59 1 applic BID [facility] Administration Pantoprazole Sodium 40 mg 07/21/19 11:45 07/21/19 14:23 Protonix Iv IVPUSH 40 mg DAILY [facility] Administration Phenytoin Sodium 200 mg 07/21/19 07:00 07/21/19 21:41 Dilantin - PO 200 mg BID [facility] Administration Polyethylene Glycol 17 gm 07/21/19 08:15 07/21/19 11:27 Miralax (For Daily Use) - PO Not Given DAILY [facility] Promethazine HCl 12.5 mg 07/21/19 11:32 Phenergan - PO Q6H PRN NAUSEA AND/OR VOMITING Rosuvastatin Calcium 20 mg 07/21/19 22:00 07/21/19 21:41 Crestor - PO 20 mg HS [facility] Administration Tamsulosin HCl 0.4 mg 07/21/19 08:30 07/21/19 09:44 Flomax - PO 0.4 mg DAILY@0830 [facility] Administration ASSESSMENT/PLAN: This is a 68 y/o male with PMH of a-fib, HLD, mediastinal mass, POD #0 from supraclavicular lymph node biopsy, transferred to the ICU for higher level of care after possible seizure like activity. #Neuro: seizure like activity vs vasovagal syncope -fosphenytoin 1g loading dose yesterday -seizure precautions -neuro consult (Dr. Sprague): dilantin 200 mg BID until source identified but in all likelihood it will be for life. -head CT shows no acute intracranial bleed or mass effect, but some ? mass -MRI w w/o contrast tomorrow to assess for cause of ? seizure like activity, or cerebral mass. #Cardio: chronic a-fib and HLD -heparin 5000TID initiated -continue crestor - c/w metoprolol 50 - echo normal EF 60% in past no sign of CHF although anasarca possibly 2/2 SVC syndrome vs diastolic CHF. #Resp: right pneumothorax/ probable small cell lung CA -chest tube placed - chest tube output 550cc, no air leaks - Pleural effusion tap per lights criteria depicting an exudative effusion, cytology pending and this will determine the staging of the CA. - CT chest showing a central lesion - CT abd pelvis no sign of liver mets. -continue duonebs - steroids 40q8. - heme onc consulted- believe it is likely to be stage IV lung CA and will initiate w/u #Onc: s/p supraclavicular LN biopsy -awaiting biopsy report #F/E/N -daily lytes, replete PRN -regular diet #Dispo: Spoke with family regarding code status and the patient would like to be DNR/DNI. Patient is compitent enough to make this decision on his own and the family are respectful of his wishes. Primary doctor Felicia is aware. Visit type - Emergency Visit Emergency Visit: Yes ED Registration Date: 07/16/19 Care time: The patient presented to the Emergency Department on the above date and was hospitalized for further evaluation of their emergent condition. - New Patient This patient is new to me today: Yes Date on this admission: 07/22/19 - Critical Care Critical Care patient: Yes Total Critical Care Time (in minutes): 40 Critical Care Statement: The care of this patient involved high complexity decision making to prevent further life threatening deterioration of the patient 's condition and/or to evaluate & treat vital organ system(s) failure or risk of failure. - Discharge Referral Referred to [facility] Med P.C.: No
[2019-07-22 07:19] LABS: MAGNESIUM 2.7 mg/dL (1.8-2.4); PHOSPHOROUS 4.8 mg/dL (2.5-4.9)
[2019-07-22 07:20] LABS: ALBUMIN 2.1 g/dl (3.4-5.0); BILIRUBIN,TOTAL 0.3 mg/dL (0.2-1); BLOOD UREA NITROGEN 31.7 mg/dL (7-18); CALCIUM 8.3 mg/dL (8.5-10.1); CREATININE 1.1 mg/dL (0.55-1.3); POTASSIUM 4.7 mmol/L (3.5-5.1); TOT PROT 5.9 g/dl (6.4-8.2)
[2019-07-22] MEDS: ALBUTEROL SO4 2.5/IPRATROPIUM 0.5 INH SOL 3 ML VIAL.NEB. NEB SCH ×4 (07:40→20:04)
[2019-07-22] MEDS: PHENYTOIN NA EXTENDED 100 MG CAPSULE (FP) PO SCH ×2 (09:00→22:44)
[2019-07-22] MEDS: PANTOPRAZOLE SODIUM 40 MG VIAL IVPUSH SCH (09:06)
[2019-07-22] MEDS: MUPIROCIN 2% TOPICAL OINTMENT FOR DECOLONIZATION NS SCH ×2 (09:06→21:18)
[2019-07-22] MEDS: TAMSULOSIN HCL 0.4 MG CAP PO SCH (09:06)
[2019-07-22] MEDS: POLYETHYLENE GLYCOL 3350 119 GM BTL PO SCH (09:58)
--- NOTE | 2019-07-22 10:36 | PN ---
Teaching Attending Note Name of Resident: Chad Duarte ATTENDING PHYSICIAN STATEMENT I saw and evaluated the patient. I reviewed the resident's note and discussed the case with the resident. I agree with the resident's findings and plan as documented. SUBJECTIVE: Patient seen and examined in the ICU. Awake and alert. Mildly tachyppneic on NC O2. Pain at the CT site improved. No air leak noted. 100cc drainage documented since midnight. Intake & Output 07/19/19 07/20/19 07/21/19 07/22/19 23:59 23:59 23:59 23:59 Intake Total 1160 20 1020 Output Total 500 2340 300 Balance 1160 -480 -1320 -300 Weight 199 lb 1.6 oz 199 lb 1.6 oz Last Vital Signs Temp Pulse Resp BP Pulse Ox 98.2 F 89 20 108/62 90 L 07/22/19 06:00 07/22/19 09:00 07/22/19 09:00 07/22/19 09:00 07/22/19 08:54 Active Medications Acetaminophen (Tylenol -) 650 mg PO Q4H PRN PRN Reason: TEMP >100.4 Last Admin: 07/22/19 02:42 Dose: 650 mg Albuterol Sulfate (Ventolin Hfa Inhaler -) 2 puff IH Q6H PRN PRN Reason: SHORTNESS OF BREATH Albuterol Sulfate (Ventolin 0.083% Nebulizer Soln -) 1 amp NEB Q4H PRN PRN Reason: SHORT OF BREATH/WHEEZING Last Admin: 07/21/19 02:28 Dose: 1 amp Albuterol/Ipratropium (Duoneb -) 1 amp NEB RQID [facility] Last Admin: 07/22/19 07:40 Dose: 1 amp Chlorhexidine Gluconate (Hibiclens For Decolonization -) 1 applic TP HS [facility] Last Admin: 07/21/19 22:41 Dose: 1 applic Guaifenesin/Codeine Phosphate (Robitussin Ac -) 10 ml PO Q8H PRN PRN Reason: COUGH Last Admin: 07/21/19 19:27 Dose: 10 ml Heparin Sodium (Porcine) (Heparin -) 5,000 unit SQ TID [facility] Last Admin: 07/22/19 06:30 Dose: 5,000 unit Piperacillin Sod/Tazobactam (Sod 3.375 gm/ Dextrose) 50 mls @ 100 mls/hr IVPB Q8H-IV [facility]ER[facility]; Protocol Last Admin: 07/22/19 09:06 Dose: 100 mls/hr Sodium Chloride (Normal Saline -) 1,000 mls @ 100 mls/hr IV ASDIR [facility] Last Admin: 07/22/19 06:31 Dose: 100 mls/hr Methylprednisolone Sodium Succinate (Solu-Medrol -) 40 mg IVPUSH Q8H-IV [facility] Last Admin: 07/22/19 09:06 Dose: 40 mg Metoprolol Succinate (Toprol Xl -) 50 mg PO DAILY [facility] Last Admin: 07/21/19 09:43 Dose: 50 mg Mupirocin (Bactroban Ointment (For Decolonization) -) 1 applic NS BID [facility] Stop: 07/25/19 21:59 Last Admin: 07/22/19 09:06 Dose: 1 applic Pantoprazole Sodium (Protonix Iv) 40 mg IVPUSH DAILY [facility] Last Admin: 07/22/19 09:06 Dose: 40 mg Phenytoin Sodium (Dilantin -) 200 mg PO BID [facility] Last Admin: 07/21/19 21:41 Dose: 200 mg Polyethylene Glycol (Miralax (For Daily Use) -) 17 gm PO DAILY [facility] Last Admin: 07/21/19 11:27 Dose: Not Given Promethazine HCl (Phenergan -) 12.5 mg PO Q6H PRN PRN Reason: NAUSEA AND/OR VOMITING Rosuvastatin Calcium (Crestor -) 20 mg PO HS [facility] Last Admin: 07/21/19 21:41 Dose: 20 mg Tamsulosin HCl (Flomax -) 0.4 mg PO DAILY@0830 [facility] Last Admin: 07/22/19 09:06 Dose: 0.4 mg Gen: Awake and alert, mildly tachypneic at rest Heart: RRR Lung: scattered rhonchi Abd: soft, nontender Ext: + edema [employer]SH[employer] PASTOR: non-focal Laboratory Results - last 24 hr 07/21/19 07/21/19 07/21/19 12:36 12:36 12:36 WBC RBC Hgb Hct MCV MCH MCHC RDW Plt Count MPV Absolute Neuts (auto) Neutrophils % Lymphocytes % Monocytes % Eosinophils % Basophils % Nucleated RBC % Sodium Potassium Chloride Carbon Dioxide Anion Gap BUN Creatinine Est GFR (CKD-EPI)AfAm Est GFR (CKD-EPI)NonAf Random Glucose Lactic Acid 5.6 H* Calcium Phosphorus Magnesium Total Bilirubin AST ALT Alkaline Phosphatase LD Total 235 Total Protein Albumin Prostate Specific Ag 19.00 H Ur Random Sodium 07/21/19 07/22/19 07/22/19 21:30 06:00 06:20 WBC 14.5 H RBC 3.43 L Hgb 9.8 L Hct 29.1 L MCV 85.0 MCH 28.6 MCHC 33.7 RDW 16.7 H Plt Count 535 H MPV 7.0 L Absolute Neuts (auto) 12.8 H Neutrophils % 87.8 H Lymphocytes % 4.7 L D Monocytes % 7.3 D Eosinophils % 0.0 D Basophils % 0.2 Nucleated RBC % 0 Sodium Potassium Chloride Carbon Dioxide Anion Gap BUN Creatinine Est GFR (CKD-EPI)AfAm Est GFR (CKD-EPI)NonAf Random Glucose Lactic Acid 5.0 H* Calcium Phosphorus Magnesium Total Bilirubin AST ALT Alkaline Phosphatase LD Total Total Protein Albumin Prostate Specific Ag Ur Random Sodium 6 L 07/22/19 07/22/19 06:20 06:20 WBC RBC Hgb Hct MCV MCH MCHC RDW Plt Count MPV Absolute Neuts (auto) Neutrophils % Lymphocytes % Monocytes % Eosinophils % Basophils % Nucleated RBC % Sodium 133 L Potassium 4.7 Chloride 99 Carbon Dioxide 25 Anion Gap 10 BUN 31.7 H Creatinine 1.1 Est GFR (CKD-EPI)AfAm 78.97 Est GFR (CKD-EPI)NonAf 68.13 Random Glucose 140 H Lactic Acid Calcium 8.3 L Phosphorus 4.8 Magnesium 2.7 H Total Bilirubin 0.3 AST 31 ALT 28 Alkaline Phosphatase 174 H LD Total Total Protein 5.9 L Albumin 2.1 L Prostate Specific Ag Ur Random Sodium ASSESSMENT AND PLAN: Likely Progressive Lung Cancer - suspect small cell lung cancer Pleural Effusion likely malignant s/p thoracentesis s/p CT guided Lung Biopsy Right Pneumothorax s/p chest tube placement r/o SVC syndrome r/o Pneumonia Hyponatremia Lactic Acidosis Atrial Fibrillation Hyperlipidemia - f/u cytology, pathology - MRI brain for staging - inhaled bronchodilators - on empiric medrol - keep chest tube to low wall suction - daily CXR while chest tube in place - pain control - cough suppressants - on empiric antibiotics - rate control - O2 to keep SpO2 >90% - DVT prophylaxis - poor overall prognosis - Cardiac Telemetry monitoring Dr Granado
--- NOTE | 2019-07-22 12:10 | EKG ---
Test Reason : Blood Pressure : / mmHG Vent. Rate : 096 BPM Atrial Rate : 096 BPM P-R Int : 168 ms QRS Dur : 112 ms QT Int : 350 ms P-R-T Axes : 059 020 050 degrees QTc Int : 442 ms NORMAL SINUS RHYTHM WITH SINUS ARRHYTHMIA PREMATURE ATRIAL COMPLEXES WHEN COMPARED WITH ECG OF 20-JUL-2019 20:25, NO SIGNIFICANT CHANGE WAS FOUND Confirmed by JEREMIAH JOSE MD ([id number]) on 07/22/2019 12:10:31 PM Referred By: Confirmed By:JEREMIAH JOSE MD
--- NOTE | 2019-07-22 12:15 | PN ---
Progress Note, Physician History of Present Illness: looks much better chest tube still draining family in room breathing better lactic acid increasing - Current Medication List Current Medications: Active Medications Acetaminophen (Tylenol -) 650 mg PO Q4H PRN PRN Reason: TEMP >100.4 Last Admin: 07/22/19 02:42 Dose: 650 mg Albuterol Sulfate (Ventolin Hfa Inhaler -) 2 puff IH Q6H PRN PRN Reason: SHORTNESS OF BREATH Albuterol Sulfate (Ventolin 0.083% Nebulizer Soln -) 1 amp NEB Q4H PRN PRN Reason: SHORT OF BREATH/WHEEZING Last Admin: 07/21/19 02:28 Dose: 1 amp Albuterol/Ipratropium (Duoneb -) 1 amp NEB RQID [facility] Last Admin: 07/22/19 11:35 Dose: 1 amp Chlorhexidine Gluconate (Hibiclens For Decolonization -) 1 applic TP HS [facility] Last Admin: 07/21/19 22:41 Dose: 1 applic Guaifenesin/Codeine Phosphate (Robitussin Ac -) 10 ml PO Q8H PRN PRN Reason: COUGH Last Admin: 07/21/19 19:27 Dose: 10 ml Heparin Sodium (Porcine) (Heparin -) 5,000 unit SQ TID [facility] Last Admin: 07/22/19 06:30 Dose: 5,000 unit Piperacillin Sod/Tazobactam (Sod 3.375 gm/ Dextrose) 50 mls @ 100 mls/hr IVPB Q8H-IV [facility]; Protocol Last Admin: 07/22/19 09:06 Dose: 100 mls/hr Sodium Chloride (Normal Saline -) 1,000 mls @ 100 mls/hr IV ASDIR [facility] Last Admin: 07/22/19 06:31 Dose: 100 mls/hr Methylprednisolone Sodium Succinate (Solu-Medrol -) 40 mg IVPUSH Q8H-IV [facility] Last Admin: 07/22/19 09:06 Dose: 40 mg Metoprolol Succinate (Toprol Xl -) 50 mg PO DAILY [facility] Last Admin: 07/22/19 09:00 Dose: 50 mg Mupirocin (Bactroban Ointment (For Decolonization) -) 1 applic NS BID [facility] Stop: 07/25/19 21:59 Last Admin: 07/22/19 09:06 Dose: 1 applic Pantoprazole Sodium (Protonix Iv) 40 mg IVPUSH DAILY [facility] Last Admin: 07/22/19 09:06 Dose: 40 mg Phenytoin Sodium (Dilantin -) 200 mg PO BID [facility] Last Admin: 07/22/19 09:00 Dose: 200 mg Polyethylene Glycol (Miralax (For Daily Use) -) 17 gm PO DAILY [facility] Last Admin: 07/22/19 09:58 Dose: Not Given Promethazine HCl (Phenergan -) 12.5 mg PO Q6H PRN PRN Reason: NAUSEA AND/OR VOMITING Rosuvastatin Calcium (Crestor -) 20 mg PO HS [facility] Last Admin: 07/21/19 21:41 Dose: 20 mg Tamsulosin HCl (Flomax -) 0.4 mg PO DAILY@0830 [facility] Last Admin: 07/22/19 09:06 Dose: 0.4 mg - Objective Vital Signs: Vital Signs Temperature 97.8 F 07/22/19 10:00 Pulse Rate 97 H 07/22/19 12:00 Respiratory Rate 22 H 07/22/19 12:00 Blood Pressure 121/67 07/22/19 12:00 O2 Sat by Pulse Oximetry (%) 90 L 07/22/19 08:54 Constitutional: Yes: No Distress, Calm Cardiovascular: Yes: S1, S2 Respiratory: Yes: Regular, On Venti-Mask, Poor Air Entry, Other (rt sided chest tube in place) Gastrointestinal: Yes: Normal Bowel Sounds, Soft Musculoskeletal: Yes: WNL Extremities: Yes: WNL Labs: CBC, BMP 07/22/19 06:20 07/22/19 06:20 INR, PTT INR 1.19 (0.83-1.09) H 07/16/19 13:45 Assessment/Plan Likely Progressive Lung Cancer - suspect small cell lung cancer Pleural Effusion likely malignant s/p thoracentesis s/p CT guided Lung Biopsy Right Pneumothorax s/p chest tube placement r/o SVC syndrome r/o Pneumonia Hyponatremia Lactic Acidosis Atrial Fibrillation Hyperlipidemia -plan continue empiric abx await for cytology rest as per the team resp support
--- NOTE | 2019-07-22 13:22 | PN ---
Progress Note, Physician Chief Complaint: better bm yesterday vss tolerating diet - Current Medication List Current Medications: Active Medications Acetaminophen (Tylenol -) 650 mg PO Q4H PRN PRN Reason: TEMP >100.4 Last Admin: 07/22/19 02:42 Dose: 650 mg Albuterol Sulfate (Ventolin Hfa Inhaler -) 2 puff IH Q6H PRN PRN Reason: SHORTNESS OF BREATH Albuterol Sulfate (Ventolin 0.083% Nebulizer Soln -) 1 amp NEB Q4H PRN PRN Reason: SHORT OF BREATH/WHEEZING Last Admin: 07/21/19 02:28 Dose: 1 amp Albuterol/Ipratropium (Duoneb -) 1 amp NEB RQID [facility] Last Admin: 07/22/19 11:35 Dose: 1 amp Chlorhexidine Gluconate (Hibiclens For Decolonization -) 1 applic TP HS [facility] Last Admin: 07/21/19 22:41 Dose: 1 applic Guaifenesin/Codeine Phosphate (Robitussin Ac -) 10 ml PO Q8H PRN PRN Reason: COUGH Last Admin: 07/21/19 19:27 Dose: 10 ml Heparin Sodium (Porcine) (Heparin -) 5,000 unit SQ TID [facility] Last Admin: 07/22/19 06:30 Dose: 5,000 unit Piperacillin Sod/Tazobactam (Sod 3.375 gm/ Dextrose) 50 mls @ 100 mls/hr IVPB Q8H-IV [facility]; Protocol Last Admin: 07/22/19 09:06 Dose: 100 mls/hr Sodium Chloride (Normal Saline -) 1,000 mls @ 100 mls/hr IV ASDIR [facility] Last Admin: 07/22/19 06:31 Dose: 100 mls/hr Methylprednisolone Sodium Succinate (Solu-Medrol -) 40 mg IVPUSH Q8H-IV [facility] Last Admin: 07/22/19 09:06 Dose: 40 mg Metoprolol Succinate (Toprol Xl -) 50 mg PO DAILY [facility] Last Admin: 07/22/19 09:00 Dose: 50 mg Mupirocin (Bactroban Ointment (For Decolonization) -) 1 applic NS BID [facility] Stop: 07/25/19 21:59 Last Admin: 07/22/19 09:06 Dose: 1 applic Pantoprazole Sodium (Protonix Iv) 40 mg IVPUSH DAILY [facility] Last Admin: 07/22/19 09:06 Dose: 40 mg Phenytoin Sodium (Dilantin -) 200 mg PO BID [facility] Last Admin: 07/22/19 09:00 Dose: 200 mg Polyethylene Glycol (Miralax (For Daily Use) -) 17 gm PO DAILY [facility] Last Admin: 07/22/19 09:58 Dose: Not Given Promethazine HCl (Phenergan -) 12.5 mg PO Q6H PRN PRN Reason: NAUSEA AND/OR VOMITING Rosuvastatin Calcium (Crestor -) 20 mg PO HS [facility] Last Admin: 07/21/19 21:41 Dose: 20 mg Tamsulosin HCl (Flomax -) 0.4 mg PO DAILY@0830 [facility] Last Admin: 07/22/19 09:06 Dose: 0.4 mg - Objective Vital Signs: Vital Signs Temperature 97.8 F 07/22/19 10:00 Pulse Rate 97 H 07/22/19 12:00 Respiratory Rate 22 H 07/22/19 12:00 Blood Pressure 121/67 07/22/19 12:00 O2 Sat by Pulse Oximetry (%) 90 L 07/22/19 08:54 Constitutional: Yes: No Distress, Calm Eyes: Yes: WNL HENT: Yes: WNL Neck: Yes: WNL Cardiovascular: Yes: Regular Rate and Rhythm Respiratory: Yes: Poor Air Entry, SOB on Exertion, Wheezes Gastrointestinal: Yes: WNL ...Rectal Exam: Yes: Deferred Genitourinary: Yes: WNL Breast(s): Yes: WNL Musculoskeletal: Yes: WNL Extremities: Yes: WNL Edema: Yes Edema: LLE: 2+, RLE: 2+ Peripheral Pulses WNL: Yes Integumentary: Yes: WNL Wound/Incision: Yes: Clean/Dry Neurological: Yes: WNL ...Motor Strength: WNL Psychiatric: Yes: WNL Labs: CBC, BMP 07/22/19 06:20 07/22/19 06:20 INR, PTT INR 1.19 (0.83-1.09) H 07/16/19 13:45 Assessment/Plan stop iv fluids paliative care bx results pnd
[2019-07-22] MEDS: guaiFENesin/CODEINE 5 ML UNIT-DOSE CUPS PO PRN (15:17)
--- NOTE | 2019-07-22 15:38 | PN ---
Progress Note (short form) - Note Progress Note: Hematology and oncology follow up Subjective: Patient seen and examined at bedside. States that SOB is improved today, but cough remains the same. Objective: Vital Signs Temperature 97.8 F 07/22/19 14:00 Pulse Rate 90 07/22/19 14:00 Respiratory Rate 22 H 07/22/19 14:00 Blood Pressure 123/69 07/22/19 14:00 O2 Sat by Pulse Oximetry (%) 90 L 07/22/19 08:54 PE: Gen: patient mildly diaphoretic and appears rankly short of breath. Lungs: Crackles heard along the right lung. Left lung CTA Heart: regular rate and rhythm, s1, s2 heard. No murmurs, gallops, rubs Abdomen: soft, nontender, nondistended, bowel sounds heard. Extremities: no edema in the lower extremities. CBC, BMP 07/22/19 06:20 07/22/19 06:20 Assessment and plan: The patient is a 68 yo m w/ PMH HLD, Afib(on ASA) and suspected lung mass who presented to the ED from Dr. Chad Duarte Sr.'s office c/o progressive SOB and generalized weakness. Hematology consulted for assistance with further management if biopsy malignant. #Mediastinal mass with pleural effusion likely 2/2 malignant process -CTA on admission showed: -right hilar mass measuring 8 x 7.5 x 7.5cm extending into the mediastinum with indentation into the SVC -2.3 cm RUL nodule -Several 1cm nodules in the LLL -Left hilar lymphadenopathy -S/p biopsy of RUL nodule -awaiting pathology results -added PDL1 and stage 4 lung Ca mutation workup -s/p thoracentesis for right sided pleural effusion -fluid exudative by light's criteria -awaiting cytology results -will discuss interventions with family once pathology back -above findings very concerning for stage 4 lung Ca -Radiation oncology consulted -CT surgery consulted
--- NOTE | 2019-07-22 16:42 | PATH ---
Cytology Non-Gynecological Report Patient Name: RODRIGUEZ CAIN Med. Rec. #: [id number] /Age/Gender: 1950 (Age: 68) / M Account: [id number] Location: 4 W TELEMETRY U Taken: 07/19/2019 Received: 07/19/2019 Reported: 07/22/2019 Physicians: Chad Duarte M.D. Specimen(s) Received A: PLEURAL FLUID, RIGHT B: PLEURAL FLUID, RIGHT Clinical History Pleural effusion, lung mass Final Diagnosis A-B. PLEURAL FLUID, RIGHT, THORACENTESIS: SATISFACTORY FOR EVALUATION. POSITIVE FOR MALIGNANT CELLS. ADENOCARCINOMA. SEE COMMENT. Comment: Immunohistochemical stains performed and interpreted at [facility] show the tumor is positive for CK-7, CK-20 (focal) and JESICA; while negative for TTF-1. Lung mass by imaging noted. Findings are morphologically similar with concurrent lung material ([id number]). See separate biopsy for complete immunophenotypic work-up. Findings discussed by Dr. Sewell with Dr. Ferris. Positive and negative controls (internal if applicable) show appropriate results. Electronically Signed Wen Hill M.D. Gross Description A. Approximately 50 cc of cloudy yellow fluid received fixed in 50% alcohol. One cytofunnel prepared and Pap stained. One cellblock prepared. B. Approximately 1000 cc of cloudy yellow fluid received fresh. One cytofunnel prepared and Pap stained. One cellblock prepared.
--- NOTE | 2019-07-22 16:46 | PN ---
Progress Note (short form) - Note Progress Note: Radiation Oncology Pt seen earlier today, chart/films reviewed, dictated consult to follow. Rt hilar mass with extension to mediastinum/left hilum associated w/airway and vascular compression, postobstructive atelectasis. Likely lung cancer with malignant effusion s/p lung biopsy and chest tube. Biopsy and cytology results pending. To follow. MRI brain follow up of CT head, small lesion noted. Cont resp support, pulmonary follow up. ?endobronchial stent ?endovascular stent Await pathology.
[2019-07-22] MEDS ORDERED: PT OWN MED DRAWER 7, Y5N ONE (21:04)
[2019-07-22] MEDS: ROSUVASTATIN CA 20 MG TABLET (FP) PO SCH (21:18)
[2019-07-22] MEDS: CHLORHEXIDINE GLUCONATE 4% CLEANSER FOR DECOLONIZATION TP SCH (21:19)
--- NOTE | 2019-07-22 22:20 | PN ---
Progress Note (short form) - Note Progress Note: Thoracic Surgery: Images reviewed. No large effusion. Will f/u cytology (?small cell). Findings suggestive of atelectasis due to advanced cancer with lymphadenopathy. Effusion is relatively small and likely noncontributory to symptomatology. SVC appears open. Will follow.
[2019-07-23] MEDS: methylPREDNISolone NA SUCC 40 MG/1 ML VIAL IVPUSH SCH ×3 (02:22→17:43)
[2019-07-23] MEDS: PIPERACILLIN/TAZOB 3.375 GM 3.375 GM in DEXTROSE 5%-WATER - 50 ML IVPB SCH ×3 (02:26→18:23)
[2019-07-23] MEDS: HEPARIN NA (PORCINE) 5,000 UNITS/ML 1ML VIAL SQ SCH ×3 (06:27→22:39)
[2019-07-23] MEDS: guaiFENesin/CODEINE 5 ML UNIT-DOSE CUPS PO PRN ×2 (06:33→18:23)
[2019-07-23 06:56] LABS: BASO % 0.1 % (0-2.0); HEMATOCRIT 31.7 % (35.4-49); HEMOGLOBIN 10.6 GM/dL (11.7-16.9); LYMPH % 3.5 % (8-40); MCH 28.7 pg (25.7-33.7); MCHC 33.5 g/dl (32.0-35.9); MEAN CELL VOLUME 85.5 fl (80-96); MEAN PLT VOLUME 7.1 fl (7.5-11.1); MONO % 7.9 % (3.8-10.2); NEUT % 88.5 % (42.8-82.8); PLATELET COUNT 624 K/MM3 (134-434); RBC 3.71 M/mm3 (4.00-5.60); RDW 16.9 % (11.9-15.9)
[2019-07-23 07:18] LABS: ALBUMIN 2.3 g/dl (3.4-5.0); BILIRUBIN,TOTAL 0.3 mg/dL (0.2-1); BLOOD UREA NITROGEN 27.2 mg/dL (7-18); CALCIUM 8.5 mg/dL (8.5-10.1); CREATININE 1.1 mg/dL (0.55-1.3); POTASSIUM 5.1 mmol/L (3.5-5.1); TOT PROT 6.2 g/dl (6.4-8.2)
[2019-07-23] MEDS: ALBUTEROL SO4 2.5/IPRATROPIUM 0.5 INH SOL 3 ML VIAL.NEB. NEB SCH ×4 (08:23→20:19)
--- NOTE | 2019-07-23 09:25 | PN ---
Progress Note, Physician History of Present Illness: doing well wbc trending down - Current Medication List Current Medications: Active Medications Acetaminophen (Tylenol -) 650 mg PO Q4H PRN PRN Reason: TEMP >100.4 Last Admin: 07/22/19 02:42 Dose: 650 mg Albuterol Sulfate (Ventolin Hfa Inhaler -) 2 puff IH Q6H PRN PRN Reason: SHORTNESS OF BREATH Albuterol Sulfate (Ventolin 0.083% Nebulizer Soln -) 1 amp NEB Q4H PRN PRN Reason: SHORT OF BREATH/WHEEZING Last Admin: 07/21/19 02:28 Dose: 1 amp Albuterol/Ipratropium (Duoneb -) 1 amp NEB RQID [facility] Last Admin: 07/23/19 08:23 Dose: 1 amp Chlorhexidine Gluconate (Hibiclens For Decolonization -) 1 applic TP HS [facility] Last Admin: 07/22/19 21:19 Dose: Not Given Guaifenesin/Codeine Phosphate (Robitussin Ac -) 10 ml PO Q8H PRN PRN Reason: COUGH Last Admin: 07/23/19 06:33 Dose: 10 ml Heparin Sodium (Porcine) (Heparin -) 5,000 unit SQ TID [facility] Last Admin: 07/23/19 06:27 Dose: 5,000 unit Piperacillin Sod/Tazobactam (Sod 3.375 gm/ Dextrose) 50 mls @ 100 mls/hr IVPB Q8H-IV [facility]; Protocol Last Admin: 07/23/19 02:26 Dose: 100 mls/hr Methylprednisolone Sodium Succinate (Solu-Medrol -) 40 mg IVPUSH Q8H-IV [facility] Last Admin: 07/23/19 02:22 Dose: 40 mg Metoprolol Succinate (Toprol Xl -) 50 mg PO DAILY [facility] Last Admin: 07/22/19 09:00 Dose: 50 mg Mupirocin (Bactroban Ointment (For Decolonization) -) 1 applic NS BID [facility] Stop: 07/25/19 21:59 Last Admin: 07/22/19 21:18 Dose: Not Given Pantoprazole Sodium (Protonix Iv) 40 mg IVPUSH DAILY [facility] Last Admin: 07/22/19 09:06 Dose: 40 mg Phenytoin Sodium (Dilantin -) 200 mg PO BID [facility] Last Admin: 07/22/19 22:44 Dose: 200 mg Polyethylene Glycol (Miralax (For Daily Use) -) 17 gm PO DAILY [facility] Last Admin: 07/22/19 09:58 Dose: Not Given Promethazine HCl (Phenergan -) 12.5 mg PO Q6H PRN PRN Reason: NAUSEA AND/OR VOMITING Rosuvastatin Calcium (Crestor -) 20 mg PO HS [facility] Last Admin: 07/22/19 21:18 Dose: 20 mg Tamsulosin HCl (Flomax -) 0.4 mg PO DAILY@0830 [facility] Last Admin: 07/22/19 09:06 Dose: 0.4 mg - Objective Vital Signs: Vital Signs Temperature 97.7 F 07/23/19 01:00 Pulse Rate 94 H 07/23/19 01:00 Respiratory Rate 24 H 07/23/19 01:00 Blood Pressure 129/72 07/23/19 01:00 O2 Sat by Pulse Oximetry (%) 95 07/22/19 21:00 Constitutional: Yes: No Distress, Calm Cardiovascular: Yes: S1, S2 Respiratory: Yes: Regular, Poor Air Entry, Other Gastrointestinal: Yes: Normal Bowel Sounds, Soft Musculoskeletal: Yes: WNL Extremities: Yes: WNL Neurological: Yes: Alert, Oriented Psychiatric: Yes: Alert, Oriented Labs: CBC, BMP 07/23/19 06:05 07/23/19 06:05 INR, PTT INR 1.19 (0.83-1.09) H 07/16/19 13:45 Assessment/Plan Likely Progressive Lung Cancer - suspect small cell lung cancer Pleural Effusion likely malignant s/p thoracentesis s/p CT guided Lung Biopsy Right Pneumothorax s/p chest tube placement r/o SVC syndrome r/o Pneumonia Hyponatremia Lactic Acidosis Atrial Fibrillation Hyperlipidemia -plan continue empiric abx await for cytology rest as per the team resp support
[2019-07-23] MEDS ORDERED: DEXTROSE 5%-WATER - 50 ML IVPB ONE ×2 (10:08→17:36)
[2019-07-23] MEDS ORDERED: PIPERACILLIN/TAZOBACTAM 3.375 GM VIAL IVPB ONE ×2 (10:08→17:36)
[2019-07-23] MEDS ORDERED: PT OWN MED DRAWER 7, Y5N ONE ×2 (10:08→21:27)
[2019-07-23] MEDS: MUPIROCIN 2% TOPICAL OINTMENT FOR DECOLONIZATION NS SCH ×2 (10:10→22:37)
[2019-07-23] MEDS: TAMSULOSIN HCL 0.4 MG CAP PO SCH (10:12)
[2019-07-23] MEDS: PHENYTOIN NA EXTENDED 100 MG CAPSULE (FP) PO SCH ×2 (10:12→22:38)
[2019-07-23] MEDS: POLYETHYLENE GLYCOL 3350 119 GM BTL PO SCH (10:20)
[2019-07-23] MEDS: PANTOPRAZOLE SODIUM 40 MG VIAL IVPUSH SCH (10:25)
--- NOTE | 2019-07-23 11:25 | PN ---
Progress Note (short form) - Note Progress Note: PULMONARY KNOWN BY ME FROM RECENT OUTPATIENT VISIT AWAKE/ALERT/FAMILY PRESENT IATROGENIC PTX POST BX CHEST TUBE IN PLACE WITH DRAINAGE VSS/AFEBRILE ANICTERIC BILATERAL RHONCHI S1S2 BS+ 2+ EDENA B/L LOWER EXT T-SURG/RT ONCO NOTES REVIEWED SPOKE WITH PATHOLOGIST YESTERDAY FAVORING ADENOCARCINOMA OF LUNG ORIGIN(SPECIAL STAINS PENDING) PLEURAL FLUID REVEALS POORLY DIFFERENTIATED CA CT CHEST REVIEWED ATELECTASIS/PL FLUID/TUMOR CT BRAIN NEEDS F/U MRI BRAIN W RAVI MICRO NEGATIVE THUS FAR BUT ON ANTIBIOTICS FOR POSSIBLE POST OBSTRUCTIVE PROCESS AGREE WITH CURRENT LINE OF TREATMENT AND WORKUP HAVE ORDERED CXR THIS AM WILL FOLLOW Lacey ELLSWORTH MD
--- NOTE | 2019-07-23 20:04 | PN ---
Progress Note (short form) - Note Progress Note: I have seen and examined Earl Obrien S: Distress. Pain. SOB O: Gen: Mild distress HEENT: MMM CVS S1 S2 [place] Lungs: Wheezing Abdomen: SOft, NT, ND Extrem: No edema Neuro: Moves all extremities Plan: 68 y/o gentleman w/ PMH HLD, Afib(on ASA) and recent onset SOB-- CT chest -- right hilar mass measuring 8 x 7.5 x 7.5cm extending into the mediastinum with indentation into the SVC. -2.3 cm RUL nodule -Several 1cm nodules in the LLL -Left hilar lymphadenopathy -S/p biopsy of RUL nodule -awaiting pathology results -will add PDL1 and stage 4 lung Ca mutation workup -s/p thoracentesis for right sided pleural effusion -fluid exudative by light's criteria -awaiting cytology results -will discuss interventions with family once pathology back -above findings very concerning for stage 4 lung Ca
--- NOTE | 2019-07-23 20:23 | PN ---
Progress Note (short form) - Note Progress Note: Patient seen and examined Feels better AFVSS Cor: RSR, No murmurs, No gallops Lungs: decreased at bases Abd: Soft, Normal bowel sounds, No organomegaly Ext:No significant edema Labs/meds reviewed A/P The patient is a 68 yo m w/ PMH HLD, Afib(on ASA) and recent onset SOB-- CT chest -- right hilar mass measuring 8 x 7.5 x 7.5cm extending into the mediastinum with indentation into the SVC -2.3 cm RUL nodule -Several 1cm nodules in the LLL -Left hilar lymphadenopathy -S/p biopsy of RUL nodule with pneumothorax -awaiting pathology results -will add PDL1 and mutational analysis -s/p thoracentesis for right sided pleural effusion -fluid exudative -awaiting cytology results will need MRI brain once chest tube is out or CT head with and without will request rad-onc/ CT surgery consults
[2019-07-23] MEDS: ROSUVASTATIN CA 20 MG TABLET (FP) PO SCH (22:38)
[2019-07-23] MEDS: CHLORHEXIDINE GLUCONATE 4% CLEANSER FOR DECOLONIZATION TP SCH (22:39)
[2019-07-24] MEDS ORDERED: PIPERACILLIN/TAZOBACTAM 3.375 GM VIAL IVPB ONE ×3 (02:44→18:18)
[2019-07-24] MEDS ORDERED: DEXTROSE 5%-WATER - 50 ML IVPB ONE ×3 (02:45→18:18)
[2019-07-24] MEDS: methylPREDNISolone NA SUCC 40 MG/1 ML VIAL IVPUSH SCH ×3 (03:40→18:29)
[2019-07-24] MEDS: PIPERACILLIN/TAZOB 3.375 GM 3.375 GM in DEXTROSE 5%-WATER - 50 ML IVPB SCH ×3 (03:40→18:29)
[2019-07-24] MEDS: HEPARIN NA (PORCINE) 5,000 UNITS/ML 1ML VIAL SQ SCH ×3 (06:08→22:35)
[2019-07-24 06:43] LABS: BASO % 0.3 % (0-2.0); EOS % 0.1 % (0-4.5); HEMATOCRIT 33.1 % (35.4-49); LYMPH % 5.3 % (8-40); MCH 28.5 pg (25.7-33.7); MCHC 33.1 g/dl (32.0-35.9); MONO % 9.4 % (3.8-10.2); NEUT % 84.9 % (42.8-82.8); PLATELET COUNT 595 K/MM3 (134-434); RBC 3.85 M/mm3 (4.00-5.60); RDW 16.9 % (11.9-15.9); WHITE BLOOD COUNT 12.8 K/mm3 (4.0-10.0)
[2019-07-24 07:07] LABS: BLOOD UREA NITROGEN 21.6 mg/dL (7-18); CALCIUM 8.3 mg/dL (8.5-10.1); POTASSIUM 4.8 mmol/L (3.5-5.1)
[2019-07-24] MEDS: ALBUTEROL SO4 2.5/IPRATROPIUM 0.5 INH SOL 3 ML VIAL.NEB. NEB SCH ×4 (08:00→19:48)
--- NOTE | 2019-07-24 10:00 | PN ---
Progress Note, Physician History of Present Illness: breathing better still with high wbc trending down pain - Current Medication List Current Medications: Active Medications Acetaminophen (Tylenol -) 650 mg PO Q4H PRN PRN Reason: TEMP >100.4 Last Admin: 07/22/19 02:42 Dose: 650 mg Albuterol Sulfate (Ventolin Hfa Inhaler -) 2 puff IH Q6H PRN PRN Reason: SHORTNESS OF BREATH Albuterol Sulfate (Ventolin 0.083% Nebulizer Soln -) 1 amp NEB Q4H PRN PRN Reason: SHORT OF BREATH/WHEEZING Last Admin: 07/21/19 02:28 Dose: 1 amp Albuterol/Ipratropium (Duoneb -) 1 amp NEB RQID [facility] Last Admin: 07/24/19 08:00 Dose: 1 amp Chlorhexidine Gluconate (Hibiclens For Decolonization -) 1 applic TP HS [facility] Last Admin: 07/23/19 22:39 Dose: Not Given Folic Acid (Folic Acid -) 1 mg PO DAILY [facility] Guaifenesin/Codeine Phosphate (Robitussin Ac -) 10 ml PO Q8H PRN PRN Reason: COUGH Last Admin: 07/23/19 18:23 Dose: 10 ml Heparin Sodium (Porcine) (Heparin -) 5,000 unit SQ TID [facility] Last Admin: 07/24/19 06:08 Dose: Not Given Piperacillin Sod/Tazobactam (Sod 3.375 gm/ Dextrose) 50 mls @ 100 mls/hr IVPB Q8H-IV [facility]; Protocol Last Admin: 07/24/19 03:40 Dose: 100 mls/hr Methylprednisolone Sodium Succinate (Solu-Medrol -) 40 mg IVPUSH Q8H-IV [facility] Last Admin: 07/24/19 03:40 Dose: 40 mg Metoprolol Succinate (Toprol Xl -) 50 mg PO DAILY [facility] Last Admin: 07/23/19 10:12 Dose: 50 mg Mupirocin (Bactroban Ointment (For Decolonization) -) 1 applic NS BID [facility] Stop: 07/25/19 21:59 Last Admin: 07/23/19 22:37 Dose: Not Given Pantoprazole Sodium (Protonix Iv) 40 mg IVPUSH DAILY [facility] Last Admin: 07/23/19 10:25 Dose: 40 mg Phenytoin Sodium (Dilantin -) 200 mg PO BID [facility] Last Admin: 07/23/19 22:38 Dose: 200 mg Polyethylene Glycol (Miralax (For Daily Use) -) 17 gm PO DAILY [facility] Last Admin: 07/23/19 10:20 Dose: Not Given Promethazine HCl (Phenergan -) 12.5 mg PO Q6H PRN PRN Reason: NAUSEA AND/OR VOMITING Rosuvastatin Calcium (Crestor -) 20 mg PO HS [facility] Last Admin: 07/23/19 22:38 Dose: 20 mg Tamsulosin HCl (Flomax -) 0.4 mg PO DAILY@0830 [facility] Last Admin: 07/23/19 10:12 Dose: 0.4 mg - Objective Vital Signs: Vital Signs Temperature 97.8 F 07/24/19 05:39 Pulse Rate 97 H 07/24/19 08:38 Respiratory Rate 22 H 07/24/19 08:38 Blood Pressure 132/70 07/24/19 08:38 O2 Sat by Pulse Oximetry (%) 96 07/24/19 09:00 Constitutional: Yes: Calm, Mild Distress Cardiovascular: Yes: S1, S2 Respiratory: Yes: Regular, Wheezes, Other (on face mask) Gastrointestinal: Yes: Normal Bowel Sounds, Soft Musculoskeletal: Yes: WNL Extremities: Yes: WNL Neurological: Yes: Alert, Oriented Psychiatric: Yes: Alert, Oriented Labs: CBC, BMP 07/24/19 05:43 07/24/19 05:43 INR, PTT INR 1.19 (0.83-1.09) H 07/16/19 13:45 Assessment/Plan Likely Progressive Lung Cancer - suspect small cell lung cancer Pleural Effusion likely malignant s/p thoracentesis s/p CT guided Lung Biopsy Right Pneumothorax s/p chest tube placement r/o SVC syndrome r/o Pneumonia Hyponatremia Lactic Acidosis Atrial Fibrillation Hyperlipidemia -plan continue empiric abx await for cytology rest as per the team resp support
[2019-07-24] MEDS ORDERED: PT OWN MED DRAWER 7, Y5N ONE ×2 (10:17→21:45)
[2019-07-24] MEDS: guaiFENesin/CODEINE 5 ML UNIT-DOSE CUPS PO PRN ×2 (10:47→20:09)
[2019-07-24] MEDS: ACETAMINOPHEN 325 MG TABLET (FP) PO PRN (10:47)
[2019-07-24] MEDS: PANTOPRAZOLE SODIUM 40 MG VIAL IVPUSH SCH (10:47)
[2019-07-24] MEDS: PHENYTOIN NA EXTENDED 100 MG CAPSULE (FP) PO SCH ×2 (10:48→22:35)
[2019-07-24] MEDS: TAMSULOSIN HCL 0.4 MG CAP PO SCH (10:48)
[2019-07-24] MEDS: FOLIC ACID 1 MG TABLET (FP) PO SCH (10:48)
[2019-07-24] MEDS: POLYETHYLENE GLYCOL 3350 119 GM BTL PO SCH (10:49)
[2019-07-24] MEDS: MUPIROCIN 2% TOPICAL OINTMENT FOR DECOLONIZATION NS SCH ×2 (10:49→22:33)
--- NOTE | 2019-07-24 11:19 | PN ---
Progress Note (short form) - Note Progress Note: PULMONARY KNOWN BY ME FROM RECENT OUTPATIENT VISIT REDUCED PLEURAL LIQUID OUTPUT AWAKE/ALERT/FAMILY PRESENT IATROGENIC PTX POST BX CHEST TUBE IN PLACE WITH DRAINAGE VSS/AFEBRILE ANICTERIC BILATERAL RHONCHI S1S2 BS+ 2+ EDENA B/L LOWER EXT T-SURG/RT ONCO NOTES REVIEWED SPOKE WITH PATHOLOGIST YESTERDAY FAVORING ADENOCARCINOMA OF LUNG ORIGIN(SPECIAL STAINS PENDING) PLEURAL FLUID REVEALS POORLY DIFFERENTIATED CA CT CHEST REVIEWED ATELECTASIS/PL FLUID/TUMOR CT BRAIN NEEDS F/U MRI BRAIN W RAVI MICRO NEGATIVE THUS FAR BUT ON ANTIBIOTICS FOR POSSIBLE POST OBSTRUCTIVE PROCESS AGREE WITH CURRENT LINE OF TREATMENT AND WORKUP CXR REVIEWED: REDUCED PLEURAL FLUID ON RIGHT/NO PTX NOTED WILL ORDER CXR FOR TODAY CONSIDER REMOVAL OF CHEST TUBE AM WILL FOLLOW Lacey ELLSWORTH MD
--- NOTE | 2019-07-24 12:11 | PN ---
Progress Note, Physician Chief Complaint: sitting resting diet poor dietition pnd palliative care in am pnd chstube capping in am feels bettewr less sob bm pos - Current Medication List Current Medications: Active Medications Acetaminophen (Tylenol -) 650 mg PO Q4H PRN PRN Reason: TEMP >100.4 Last Admin: 07/24/19 10:47 Dose: 650 mg Albuterol Sulfate (Ventolin Hfa Inhaler -) 2 puff IH Q6H PRN PRN Reason: SHORTNESS OF BREATH Albuterol Sulfate (Ventolin 0.083% Nebulizer Soln -) 1 amp NEB Q4H PRN PRN Reason: SHORT OF BREATH/WHEEZING Last Admin: 07/21/19 02:28 Dose: 1 amp Albuterol/Ipratropium (Duoneb -) 1 amp NEB RQID [facility] Last Admin: 07/24/19 08:00 Dose: 1 amp Chlorhexidine Gluconate (Hibiclens For Decolonization -) 1 applic TP HS [facility] Last Admin: 07/23/19 22:39 Dose: Not Given Folic Acid (Folic Acid -) 1 mg PO DAILY [facility] Last Admin: 07/24/19 10:48 Dose: 1 mg Guaifenesin/Codeine Phosphate (Robitussin Ac -) 10 ml PO Q8H PRN PRN Reason: COUGH Last Admin: 07/24/19 10:47 Dose: 10 ml Heparin Sodium (Porcine) (Heparin -) 5,000 unit SQ TID [facility] Last Admin: 07/24/19 06:08 Dose: Not Given Piperacillin Sod/Tazobactam (Sod 3.375 gm/ Dextrose) 50 mls @ 100 mls/hr IVPB Q8H-IV [facility]; Protocol Last Admin: 07/24/19 10:49 Dose: 100 mls/hr Methylprednisolone Sodium Succinate (Solu-Medrol -) 40 mg IVPUSH Q8H-IV [facility] Last Admin: 07/24/19 10:48 Dose: 40 mg Metoprolol Succinate (Toprol Xl -) 50 mg PO DAILY [facility] Last Admin: 07/24/19 10:48 Dose: 50 mg Mupirocin (Bactroban Ointment (For Decolonization) -) 1 applic NS BID [facility] Stop: 07/25/19 21:59 Last Admin: 07/24/19 10:49 Dose: Not Given Oxycodone HCl (Roxicodone -) 5 mg PO Q6H PRN PRN Reason: PAIN LEVEL 4 - 6 Pantoprazole Sodium (Protonix Iv) 40 mg IVPUSH DAILY [facility] Last Admin: 07/24/19 10:47 Dose: 40 mg Phenytoin Sodium (Dilantin -) 200 mg PO BID [facility] Last Admin: 07/24/19 10:48 Dose: 200 mg Polyethylene Glycol (Miralax (For Daily Use) -) 17 gm PO DAILY [facility] Last Admin: 07/24/19 10:49 Dose: Not Given Promethazine HCl (Phenergan -) 12.5 mg PO Q6H PRN PRN Reason: NAUSEA AND/OR VOMITING Rosuvastatin Calcium (Crestor -) 20 mg PO HS [facility] Last Admin: 07/23/19 22:38 Dose: 20 mg Tamsulosin HCl (Flomax -) 0.4 mg PO DAILY@0830 [facility] Last Admin: 07/24/19 10:48 Dose: 0.4 mg - Objective Vital Signs: Vital Signs Temperature 97.8 F 07/24/19 05:39 Pulse Rate 97 H 07/24/19 08:38 Respiratory Rate 22 H 07/24/19 08:38 Blood Pressure 132/70 07/24/19 08:38 O2 Sat by Pulse Oximetry (%) 96 07/24/19 09:00 Constitutional: Yes: No Distress, Calm Eyes: Yes: WNL HENT: Yes: WNL Neck: Yes: WNL Cardiovascular: Yes: Regular Rate and Rhythm Respiratory: Yes: WNL, Other (chest tube intact) Gastrointestinal: Yes: WNL ...Rectal Exam: Yes: Deferred Genitourinary: Yes: WNL Breast(s): Yes: WNL Musculoskeletal: Yes: WNL Extremities: Yes: WNL Edema: Yes Edema: LLE: 1+, RLE: 1+ (less today) Peripheral Pulses WNL: Yes Integumentary: Yes: WNL Wound/Incision: Yes: Clean/Dry Neurological: Yes: WNL ...Motor Strength: WNL Psychiatric: Yes: WNL Labs: CBC, BMP 07/24/19 05:43 07/24/19 05:43 INR, PTT INR 1.19 (0.83-1.09) H 07/16/19 13:45 Assessment/Plan chsts tube to be capped in am by dr odilia knight cont as is
[2019-07-24] MEDS: oxyCODONE HCL 5 MG TABLET PO PRN (16:42)
--- NOTE | 2019-07-24 19:50 | PN ---
Progress Note (short form) - Note Progress Note: I have seen and examined Earl Obrien S: Less distress today. Doing better and resting in bed O: Last Vital Signs Temp Pulse Resp BP Pulse Ox 97.8 F 97 H 22 H 132/70 96 07/24/19 05:39 07/24/19 08:38 07/24/19 08:38 07/24/19 08:38 07/24/19 09:00 Gen: Mild distress HEENT: MMM CVS S1 S2 [place] Lungs: Wheezing Abdomen: SOft, NT, ND Extrem: No edema Neuro: Moves all extremities Current Medications Acetaminophen (Tylenol -) 650 mg PO Q4H PRN PRN Reason: TEMP >100.4 Last Admin: 07/24/19 10:47 Dose: 650 mg Albuterol Sulfate (Ventolin Hfa Inhaler -) 2 puff IH Q6H PRN PRN Reason: SHORTNESS OF BREATH Albuterol Sulfate (Ventolin 0.083% Nebulizer Soln -) 1 amp NEB Q4H PRN PRN Reason: SHORT OF BREATH/WHEEZING Last Admin: 07/21/19 02:28 Dose: 1 amp Albuterol/Ipratropium (Duoneb -) 1 amp NEB RQID [facility] Last Admin: 07/24/19 16:00 Dose: 1 amp Chlorhexidine Gluconate (Hibiclens For Decolonization -) 1 applic TP HS [facility] Last Admin: 07/23/19 22:39 Dose: Not Given Folic Acid (Folic Acid -) 1 mg PO DAILY [facility] Last Admin: 07/24/19 10:48 Dose: 1 mg Guaifenesin/Codeine Phosphate (Robitussin Ac -) 10 ml PO Q8H PRN PRN Reason: COUGH Last Admin: 07/24/19 10:47 Dose: 10 ml Heparin Sodium (Porcine) (Heparin -) 5,000 unit SQ TID [facility] Last Admin: 07/24/19 15:58 Dose: Not Given Piperacillin Sod/Tazobactam (Sod 3.375 gm/ Dextrose) 50 mls @ 100 mls/hr IVPB Q8H-IV [facility]; Protocol Last Admin: 07/24/19 18:29 Dose: 100 mls/hr Methylprednisolone Sodium Succinate (Solu-Medrol -) 40 mg IVPUSH Q8H-IV [facility] Last Admin: 07/24/19 18:29 Dose: 40 mg Metoprolol Succinate (Toprol Xl -) 50 mg PO DAILY [facility] Last Admin: 07/24/19 10:48 Dose: 50 mg Mupirocin (Bactroban Ointment (For Decolonization) -) 1 applic NS BID [facility] Stop: 07/25/19 21:59 Last Admin: 07/24/19 10:49 Dose: Not Given Oxycodone HCl (Roxicodone -) 5 mg PO Q6H PRN PRN Reason: PAIN LEVEL 4 - 6 Last Admin: 07/24/19 16:42 Dose: 5 mg Pantoprazole Sodium (Protonix Iv) 40 mg IVPUSH DAILY [facility] Last Admin: 07/24/19 10:47 Dose: 40 mg Phenytoin Sodium (Dilantin -) 200 mg PO BID [facility] Last Admin: 07/24/19 10:48 Dose: 200 mg Polyethylene Glycol (Miralax (For Daily Use) -) 17 gm PO DAILY [facility] Last Admin: 07/24/19 10:49 Dose: Not Given Promethazine HCl (Phenergan -) 12.5 mg PO Q6H PRN PRN Reason: NAUSEA AND/OR VOMITING Rosuvastatin Calcium (Crestor -) 20 mg PO HS [facility] Last Admin: 07/23/19 22:38 Dose: 20 mg Tamsulosin HCl (Flomax -) 0.4 mg PO DAILY@0830 [facility] Last Admin: 07/24/19 10:48 Dose: 0.4 mg 07/24/19 05:43 07/24/19 05:43 Plan: 68 y/o gentleman w/ PMH HLD, Afib(on ASA) and recent onset SOB-- CT chest -- right hilar mass measuring 8 x 7.5 x 7.5cm extending into the mediastinum with indentation into the SVC. -2.3 cm RUL nodule -Several 1cm nodules in the LLL -Left hilar lymphadenopathy -S/p biopsy of RUL nodule -awaiting pathology results -will add PDL1 and stage 4 lung Ca mutation workup -s/p thoracentesis for right sided pleural effusion -fluid exudative by light's criteria -awaiting cytology results - chest tube evaluation and possible removal in AM -will discuss interventions with family once pathology back -above findings very concerning for stage 4 lung Ca - MRI brain pending
[2019-07-24] MEDS: CHLORHEXIDINE GLUCONATE 4% CLEANSER FOR DECOLONIZATION TP SCH (22:33)
[2019-07-24] MEDS: ROSUVASTATIN CA 20 MG TABLET (FP) PO SCH (22:34)
[2019-07-25] MEDS ORDERED: DEXTROSE 5%-WATER - 50 ML IVPB ONE ×2 (01:12→10:29)
[2019-07-25] MEDS ORDERED: PIPERACILLIN/TAZOBACTAM 3.375 GM VIAL IVPB ONE ×2 (01:12→10:29)
[2019-07-25] MEDS: methylPREDNISolone NA SUCC 40 MG/1 ML VIAL IVPUSH SCH ×3 (01:18→18:52)
[2019-07-25] MEDS: PIPERACILLIN/TAZOB 3.375 GM 3.375 GM in DEXTROSE 5%-WATER - 50 ML IVPB SCH ×2 (01:18→10:37)
[2019-07-25] MEDS: HEPARIN NA (PORCINE) 5,000 UNITS/ML 1ML VIAL SQ SCH ×3 (06:40→22:08)
[2019-07-25] MEDS: ALBUTEROL SO4 2.5/IPRATROPIUM 0.5 INH SOL 3 ML VIAL.NEB. NEB SCH ×4 (07:55→21:05)
[2019-07-25] MEDS: PHENYTOIN NA EXTENDED 100 MG CAPSULE (FP) PO SCH ×2 (10:36→22:08)
[2019-07-25] MEDS: MUPIROCIN 2% TOPICAL OINTMENT FOR DECOLONIZATION NS SCH (10:36)
[2019-07-25] MEDS: TAMSULOSIN HCL 0.4 MG CAP PO SCH (10:36)
[2019-07-25] MEDS: FOLIC ACID 1 MG TABLET (FP) PO SCH (10:36)
[2019-07-25] MEDS: POLYETHYLENE GLYCOL 3350 119 GM BTL PO SCH (10:37)
[2019-07-25] MEDS: PANTOPRAZOLE SODIUM 40 MG VIAL IVPUSH SCH (10:37)
[2019-07-25] MEDS: guaiFENesin/CODEINE 5 ML UNIT-DOSE CUPS PO PRN (11:00)
--- NOTE | 2019-07-25 11:19 | PN ---
Progress Note, Physician History of Present Illness: pulmonary awake,comfortable,-resp distress,+ cough - Current Medication List Current Medications: Active Medications Acetaminophen (Tylenol -) 650 mg PO Q4H PRN PRN Reason: TEMP >100.4 Last Admin: 07/24/19 10:47 Dose: 650 mg Albuterol Sulfate (Ventolin Hfa Inhaler -) 2 puff IH Q6H PRN PRN Reason: SHORTNESS OF BREATH Albuterol Sulfate (Ventolin 0.083% Nebulizer Soln -) 1 amp NEB Q4H PRN PRN Reason: SHORT OF BREATH/WHEEZING Last Admin: 07/21/19 02:28 Dose: 1 amp Albuterol/Ipratropium (Duoneb -) 1 amp NEB RQID [facility] Last Admin: 07/25/19 07:55 Dose: 1 amp Chlorhexidine Gluconate (Hibiclens For Decolonization -) 1 applic TP HS [facility] Last Admin: 07/24/19 22:33 Dose: Not Given Folic Acid (Folic Acid -) 1 mg PO DAILY [facility] Last Admin: 07/25/19 10:36 Dose: 1 mg Guaifenesin/Codeine Phosphate (Robitussin Ac -) 10 ml PO Q8H PRN PRN Reason: COUGH Last Admin: 07/25/19 11:00 Dose: 10 ml Heparin Sodium (Porcine) (Heparin -) 5,000 unit SQ TID [facility] Last Admin: 07/25/19 06:40 Dose: 5,000 unit Piperacillin Sod/Tazobactam (Sod 3.375 gm/ Dextrose) 50 mls @ 100 mls/hr IVPB Q8H-IV [facility]; Protocol Last Admin: 07/25/19 10:37 Dose: 100 mls/hr Methylprednisolone Sodium Succinate (Solu-Medrol -) 40 mg IVPUSH Q8H-IV [facility] Last Admin: 07/25/19 10:37 Dose: 40 mg Metoprolol Succinate (Toprol Xl -) 50 mg PO DAILY [facility] Last Admin: 07/25/19 10:37 Dose: 50 mg Mupirocin (Bactroban Ointment (For Decolonization) -) 1 applic NS BID [facility] Stop: 07/25/19 21:59 Last Admin: 07/25/19 10:36 Dose: Not Given Oxycodone HCl (Roxicodone -) 5 mg PO Q6H PRN PRN Reason: PAIN LEVEL 4 - 6 Last Admin: 07/24/19 16:42 Dose: 5 mg Pantoprazole Sodium (Protonix Iv) 40 mg IVPUSH DAILY [facility] Last Admin: 07/25/19 10:37 Dose: 40 mg Phenytoin Sodium (Dilantin -) 200 mg PO BID [facility] Last Admin: 07/25/19 10:36 Dose: 200 mg Polyethylene Glycol (Miralax (For Daily Use) -) 17 gm PO DAILY [facility] Last Admin: 07/25/19 10:37 Dose: Not Given Promethazine HCl (Phenergan -) 12.5 mg PO Q6H PRN PRN Reason: NAUSEA AND/OR VOMITING Rosuvastatin Calcium (Crestor -) 20 mg PO HS [facility] Last Admin: 07/24/19 22:34 Dose: 20 mg Tamsulosin HCl (Flomax -) 0.4 mg PO DAILY@0830 [facility] Last Admin: 07/25/19 10:36 Dose: 0.4 mg - Objective Vital Signs: Vital Signs Temperature 98.3 F 07/25/19 10:00 Pulse Rate 88 07/25/19 10:00 Respiratory Rate 20 07/25/19 10:00 Blood Pressure 132/48 L 07/25/19 10:00 O2 Sat by Pulse Oximetry (%) 96 07/24/19 21:00 Constitutional: Yes: Well Nourished, Calm Eyes: Yes: WNL HENT: Yes: WNL Neck: Yes: WNL Cardiovascular: Yes: Regular Rate and Rhythm, S1, S2 Respiratory: Yes: Rhonchi (few scattered rhonchi) Gastrointestinal: Yes: Normal Bowel Sounds, Soft Extremities: Yes: WNL Edema: Yes Labs: CBC, BMP 07/24/19 05:43 - ....Imaging Chest X-ray: Report Reviewed, Image Reviewed Problem List - Problems (1) Lung mass Code(s): R91.8 - OTHER NONSPECIFIC ABNORMAL FINDING OF LUNG FIELD (2) Malignancy Code(s): C80.1 - MALIGNANT (PRIMARY) NEOPLASM, UNSPECIFIED (3) Respiratory distress Code(s): R06.03 - ACUTE RESPIRATORY DISTRESS (4) Obesity Code(s): E66.9 - OBESITY, UNSPECIFIED (5) Hyponatremia Code(s): E87.1 - HYPO-OSMOLALITY AND HYPONATREMIA Assessment/Plan ASSESSMENT AND PLAN: Progressive Lung Cancer - [place] ca Pleural Effusion malignant r/o SVC syndrome Hyponatremia Lactic Acidosis Atrial Fibrillation Hyperlipidemia Anemia Pulmonary htn - inhaled bronchodilators - oncology evaluation - rate control - DVT prophylaxis - O2 - inhaled bronchodilators - chest tube as per IR - RT/CHEMO as per oncology DR FRYE
--- NOTE | 2019-07-25 11:44 | CONS ---
DATE OF CONSULTATION: 07/22/2019 REFERRING PHYSICIAN: Yajaira Linares MD REASON FOR CONSULTATION: Right lung mass and pleural effusion. PRESENT ILLNESS: Patient is a 68-year-old gentleman who was sent to the emergency room by his PCP for increasing shortness of breath, low-grade fevers, and failure to thrive. CT of the chest showed an 8-cm right hilar lung mass invading the SVC and mediastinum with extensive mediastinal and hilar lymphadenopathy encasing the right upper lobe, right middle lobe, and right lower lobe pulmonary arteries with a large postobstructive consolidation in the right upper, middle, and lower lobes. There is a moderate right pleural effusion increased from prior. There is a 2.2 -cm nodule in the right upper lobe suspicious for metastasis and a 1-cm nodule in the left lower lobe also suspicious for metastasis. He underwent a thoracentesis, cytology is pending. He underwent a right lung needle biopsy of the lung mass, pathology is pending. He required a postprocedure chest tube for pneumothorax. He had a possible seizure versus syncopal episode and is monitored in the intensive care unit. Repeat chest CT again shows the right hilar mass with extensive subcarinal, pretracheal, and right paratracheal lymphadenopathy with moderate compression of the SVC, marked encasement and narrowing of the right upper and lower branches of the pulmonary artery, and at least partial occlusion of the right upper and middle bronchi with postobstructive infiltrate/atelectasis in the right lung. There is, again, left hilar lymphadenopathy and nodules in the right upper lobe and left lower lobe. CT of the abdomen and pelvis shows no metastases except for a lymph node in the gastrohepatic region. We were asked to evaluate for possible role of radiation therapy. He is awaiting an MRI of the brain as a follow up study to a head CT, which showed a 1.4 cm lesion in the right frontal subcortical white matter. Denies history of prior radiation therapy or connective tissue disorders. PAST MEDICAL HISTORY: Hyperlipidemia, atrial fibrillation, osteoarthritis, benign prostatic hypertrophy. PAST SURGICAL HISTORY: As noted above. ALLERGIES: No known drug allergies. CURRENT MEDICATIONS: Solu-Medrol, Flomax, piperacillin, Bactroban, heparin subcutaneous, albuterol nebulizer and inhaler p.r.n., Toprol XL, MiraLAX, Crestor, Dilantin, Protonix. REVIEW OF SYSTEMS: Nonproductive cough associated with mild chest discomfort and shortness of breath at rest. Recent weight loss, anorexia, and weakness. No hemoptysis, hoarseness, or dysphagia. PHYSICAL EXAMINATION: General: male appearing his chronological age in no acute distress. His family is at the bedside. Vital Signs: Temperature 97.8, blood pressure 115/56, pulse 97, SaO2 is 90% on 3 L nasal cannula in the ICU at 8 AM. HEENT: Normocephalic, atraumatic. Moist mucous membranes. Anicteric sclerae. Clear oral cavity. Neck: Supple without mass. Chest: Bilateral rhonchi. No wheezes. Right basilar crackles. Chest tube draining serosanguineous fluid. Mild chest wall tenderness at the catheter site. No palpable mass or paraspinal mass. Abdomen: Soft, nontender, nondistended. Extremities: 2+ bilateral lower extremity edema. Neurologic: Grossly nonfocal. RADIOLOGIC DATA: See HPI. LABORATORY DATA: WBC 14.5, hemoglobin 9.8, platelets 535. Electrolytes within normal limits. BUN 31.7, creatinine 1.1, calcium 8.3, alkaline phosphatase 174. Remaining LFTs within normal limits. Albumin 2.1. PATHOLOGIC DATA: Right lung biopsy and pleural fluid cytology pending. IMPRESSION: A 68-year-old gentleman with high likelihood of lung cancer with malignant effusion status post lung biopsy and chest tube. Biopsy and cytology results are pending and will be followed. An MRI of the brain to follow up head CT, which showed a small lesion. He will continue current respiratory supportive measures and pulmonary follow up. Consideration for endovascular stent and/or endobronchial stent pending the pathology. Role of chemotherapy and radiation therapy pending pathology. PLAN: Await pathology. Continue current care. Thank you for the courtesy of this consultation. TOM BRAXTON M.D. LEANNE/[id number] MTDD
--- NOTE | 2019-07-25 12:12 | PN ---
Progress Note, Physician History of Present Illness: stale no new issues - Current Medication List Current Medications: Active Medications Acetaminophen (Tylenol -) 650 mg PO Q4H PRN PRN Reason: TEMP >100.4 Last Admin: 07/24/19 10:47 Dose: 650 mg Albuterol Sulfate (Ventolin Hfa Inhaler -) 2 puff IH Q6H PRN PRN Reason: SHORTNESS OF BREATH Albuterol Sulfate (Ventolin 0.083% Nebulizer Soln -) 1 amp NEB Q4H PRN PRN Reason: SHORT OF BREATH/WHEEZING Last Admin: 07/21/19 02:28 Dose: 1 amp Albuterol/Ipratropium (Duoneb -) 1 amp NEB RQID [facility] Last Admin: 07/25/19 07:55 Dose: 1 amp Chlorhexidine Gluconate (Hibiclens For Decolonization -) 1 applic TP HS [facility] Last Admin: 07/24/19 22:33 Dose: Not Given Folic Acid (Folic Acid -) 1 mg PO DAILY [facility] Last Admin: 07/25/19 10:36 Dose: 1 mg Guaifenesin/Codeine Phosphate (Robitussin Ac -) 10 ml PO Q8H PRN PRN Reason: COUGH Last Admin: 07/25/19 11:00 Dose: 10 ml Heparin Sodium (Porcine) (Heparin -) 5,000 unit SQ TID [facility] Last Admin: 07/25/19 06:40 Dose: 5,000 unit Piperacillin Sod/Tazobactam (Sod 3.375 gm/ Dextrose) 50 mls @ 100 mls/hr IVPB Q8H-IV [facility]; Protocol Last Admin: 07/25/19 10:37 Dose: 100 mls/hr Methylprednisolone Sodium Succinate (Solu-Medrol -) 40 mg IVPUSH Q8H-IV [facility] Last Admin: 07/25/19 10:37 Dose: 40 mg Metoprolol Succinate (Toprol Xl -) 50 mg PO DAILY [facility] Last Admin: 07/25/19 10:37 Dose: 50 mg Mupirocin (Bactroban Ointment (For Decolonization) -) 1 applic NS BID [facility] Stop: 07/25/19 21:59 Last Admin: 07/25/19 10:36 Dose: Not Given Oxycodone HCl (Roxicodone -) 5 mg PO Q6H PRN PRN Reason: PAIN LEVEL 4 - 6 Last Admin: 07/24/19 16:42 Dose: 5 mg Pantoprazole Sodium (Protonix Iv) 40 mg IVPUSH DAILY [facility] Last Admin: 07/25/19 10:37 Dose: 40 mg Phenytoin Sodium (Dilantin -) 200 mg PO BID [facility] Last Admin: 07/25/19 10:36 Dose: 200 mg Polyethylene Glycol (Miralax (For Daily Use) -) 17 gm PO DAILY [facility] Last Admin: 07/25/19 10:37 Dose: Not Given Promethazine HCl (Phenergan -) 12.5 mg PO Q6H PRN PRN Reason: NAUSEA AND/OR VOMITING Rosuvastatin Calcium (Crestor -) 20 mg PO HS [facility] Last Admin: 07/24/19 22:34 Dose: 20 mg Tamsulosin HCl (Flomax -) 0.4 mg PO DAILY@0830 [facility] Last Admin: 07/25/19 10:36 Dose: 0.4 mg - Objective Vital Signs: Vital Signs Temperature 98.3 F 07/25/19 10:00 Pulse Rate 88 07/25/19 10:00 Respiratory Rate 20 07/25/19 10:00 Blood Pressure 132/48 L 07/25/19 10:00 O2 Sat by Pulse Oximetry (%) 96 07/24/19 21:00 Constitutional: Yes: No Distress, Calm Cardiovascular: Yes: S1, S2 Respiratory: Yes: Regular, On Nasal O2, Poor Air Entry, Other (chest tube in place) Gastrointestinal: Yes: Normal Bowel Sounds, Soft Musculoskeletal: Yes: Other Extremities: Yes: WNL Neurological: Yes: Alert, Oriented Psychiatric: Yes: Alert, Oriented Labs: CBC, BMP 07/24/19 05:43 07/24/19 05:43 INR, PTT INR 1.19 (0.83-1.09) H 07/16/19 13:45 Assessment/Plan Likely Progressive Lung Cancer - suspect small cell lung cancer Pleural Effusion likely malignant s/p thoracentesis s/p CT guided Lung Biopsy Right Pneumothorax s/p chest tube placement r/o SVC syndrome r/o Pneumonia Hyponatremia Lactic Acidosis Atrial Fibrillation Hyperlipidemia -plan continue empiric abx await for labs will deescalte abx to oral chest tube care
[2019-07-25] MEDS: AMOX TR/POT CLAV 875MG/125MG TABLETS (FP) PO SCH (18:52)
[2019-07-25 21:10] VITALS: BMI 31.9
[2019-07-25] MEDS ORDERED: PT OWN MED DRAWER 7, Y5N ONE (22:03)
[2019-07-25] MEDS: ROSUVASTATIN CA 20 MG TABLET (FP) PO SCH (22:08)
[2019-07-25] MEDS: CHLORHEXIDINE GLUCONATE 4% CLEANSER FOR DECOLONIZATION TP SCH (22:08)
[2019-07-25] MEDS ORDERED: PROMETHAZINE HCL 25 MG TABLET PO PRN (22:09)
[2019-07-25] MEDS ORDERED: ACETAMINOPHEN 325 MG TABLET (FP) PO PRN (22:09)
[2019-07-25] MEDS ORDERED: ALBUTEROL SO4 8 GM HFA INHALER IH PRN (22:09)
[2019-07-25] MEDS ORDERED: ALBUTEROL SO4 0.083% IH SOL 2.5 MG/3 ML VIAL.NEB. NEB PRN (22:09)
[2019-07-26] MEDS: methylPREDNISolone NA SUCC 40 MG/1 ML VIAL IVPUSH SCH ×3 (01:53→17:16)
[2019-07-26] MEDS: guaiFENesin/CODEINE 5 ML UNIT-DOSE CUPS PO PRN ×3 (01:53→21:50)
[2019-07-26] MEDS: HEPARIN NA (PORCINE) 5,000 UNITS/ML 1ML VIAL SQ SCH ×3 (06:36→21:38)
[2019-07-26 07:19] LABS: BASO % 0.3 % (0-2.0); EOS % 0.1 % (0-4.5); HEMATOCRIT 33.7 % (35.4-49); HEMOGLOBIN 11.1 GM/dL (11.7-16.9); LYMPH % 4.7 % (8-40); MCH 28.5 pg (25.7-33.7); MCHC 33.1 g/dl (32.0-35.9); MEAN CELL VOLUME 86.3 fl (80-96); MONO % 6.3 % (3.8-10.2); NEUT % 88.6 % (42.8-82.8); PLATELET COUNT 565 K/MM3 (134-434); RDW 17.9 % (11.9-15.9); WHITE BLOOD COUNT 13.8 K/mm3 (4.0-10.0)
[2019-07-26] MEDS: ALBUTEROL SO4 2.5/IPRATROPIUM 0.5 INH SOL 3 ML VIAL.NEB. NEB SCH ×4 (07:35→20:20)
[2019-07-26 07:40] LABS: ALBUMIN 2.2 g/dl (3.4-5.0); BILIRUBIN,TOTAL 0.6 mg/dL (0.2-1); BLOOD UREA NITROGEN 24.7 mg/dL (7-18); CALCIUM 8.5 mg/dL (8.5-10.1); CREATININE 1.1 mg/dL (0.55-1.3); POTASSIUM 5.2 mmol/L (3.5-5.1); TOT PROT 5.9 g/dl (6.4-8.2)
[2019-07-26] MEDS: FOLIC ACID 1 MG TABLET (FP) PO SCH (09:47)
[2019-07-26] MEDS: PANTOPRAZOLE 40 MG TABLET (FP) PO SCH (09:47)
[2019-07-26] MEDS: AMOX TR/POT CLAV 875MG/125MG TABLETS (FP) PO SCH ×2 (09:47→17:16)
[2019-07-26] MEDS: TAMSULOSIN HCL 0.4 MG CAP PO SCH (09:48)
[2019-07-26] MEDS: PHENYTOIN NA EXTENDED 100 MG CAPSULE (FP) PO SCH ×2 (09:48→21:37)
[2019-07-26] MEDS: POLYETHYLENE GLYCOL 3350 119 GM BTL PO SCH (09:49)
[2019-07-26] MEDS ORDERED: PANTOPRAZOLE SODIUM 40 MG VIAL IVPUSH SCH (10:00)
--- NOTE | 2019-07-26 10:59 | PN ---
Progress Note, Physician History of Present Illness: pulmonary alert,oob-chair,less dyspneic - Current Medication List Current Medications: Active Medications Acetaminophen (Tylenol -) 650 mg PO Q4H PRN PRN Reason: TEMP >100.4 Albuterol Sulfate (Ventolin 0.083% Nebulizer Soln -) 1 amp NEB Q4H PRN PRN Reason: SHORT OF BREATH/WHEEZING Albuterol Sulfate (Ventolin Hfa Inhaler -) 2 puff IH Q6H PRN PRN Reason: SHORTNESS OF BREATH Albuterol/Ipratropium (Duoneb -) 1 amp NEB RQID [facility] Last Admin: 07/26/19 07:35 Dose: 1 amp Amoxicillin/Clavulanate Potassium (Augmentin - 875mg Tablet) 1 tab PO BID@0800, 1730 [facility] Last Admin: 07/26/19 09:47 Dose: 1 tab Folic Acid (Folic Acid -) 1 mg PO DAILY [facility] Last Admin: 07/26/19 09:47 Dose: 1 mg Guaifenesin/Codeine Phosphate (Robitussin Ac -) 10 ml PO Q8H PRN PRN Reason: COUGH Last Admin: 07/26/19 01:53 Dose: 10 ml Heparin Sodium (Porcine) (Heparin -) 5,000 unit SQ TID [facility] Last Admin: 07/26/19 06:36 Dose: 5,000 unit Methylprednisolone Sodium Succinate (Solu-Medrol -) 40 mg IVPUSH Q8H-IV [facility] Last Admin: 07/26/19 09:47 Dose: 40 mg Metoprolol Succinate (Toprol Xl -) 50 mg PO DAILY [facility] Last Admin: 07/26/19 09:47 Dose: 50 mg Oxycodone HCl (Roxicodone -) 5 mg PO Q6H PRN PRN Reason: PAIN LEVEL 4 - 6 Last Admin: 07/24/19 16:42 Dose: 5 mg Pantoprazole Sodium (Protonix -) 40 mg PO DAILY [facility] Last Admin: 07/26/19 09:47 Dose: 40 mg Phenytoin Sodium (Dilantin -) 200 mg PO BID [facility] Last Admin: 07/26/19 09:48 Dose: 200 mg Polyethylene Glycol (Miralax (For Daily Use) -) 17 gm PO DAILY [facility] Last Admin: 07/26/19 09:49 Dose: Not Given Promethazine HCl (Phenergan -) 12.5 mg PO Q6H PRN PRN Reason: NAUSEA AND/OR VOMITING Rosuvastatin Calcium (Crestor -) 20 mg PO HS [facility] Tamsulosin HCl (Flomax -) 0.4 mg PO DAILY@0830 [facility] Last Admin: 07/26/19 09:48 Dose: 0.4 mg - Objective Vital Signs: Vital Signs Temperature 98.0 F 07/26/19 06:00 Pulse Rate 87 07/26/19 06:00 Respiratory Rate 20 07/26/19 08:26 Blood Pressure 116/59 L 07/26/19 06:00 O2 Sat by Pulse Oximetry (%) 95 07/26/19 08:26 Constitutional: Yes: Well Nourished, Calm Eyes: Yes: WNL HENT: Yes: WNL Neck: Yes: WNL Cardiovascular: Yes: Regular Rate and Rhythm, S1, S2 Respiratory: Yes: Diminished, Rhonchi (few rhonchi) Gastrointestinal: Yes: Normal Bowel Sounds, Soft Extremities: Yes: WNL Edema: Yes Labs: CBC, BMP 07/26/19 06:05 07/26/19 06:05 INR, PTT INR 1.19 (0.83-1.09) H 07/16/19 13:45 Problem List - Problems (1) Lung mass Code(s): R91.8 - OTHER NONSPECIFIC ABNORMAL FINDING OF LUNG FIELD (2) Malignancy Code(s): C80.1 - MALIGNANT (PRIMARY) NEOPLASM, UNSPECIFIED (3) Respiratory distress Code(s): R06.03 - ACUTE RESPIRATORY DISTRESS (4) Obesity Code(s): E66.9 - OBESITY, UNSPECIFIED (5) Hyponatremia Code(s): E87.1 - HYPO-OSMOLALITY AND HYPONATREMIA Assessment/Plan ASSESSMENT AND PLAN: Progressive Lung Cancer - [place] ca Pleural Effusion malignant r/o SVC syndrome Hyponatremia Lactic Acidosis PAF Hyperlipidemia Anemia Pulmonary Htn - inhaled bronchodilators - rate control - DVT prophylaxis - O2 - inhaled bronchodilators - chest tube as per IR - RT/CHEMO as per oncology DR FRYE
--- NOTE | 2019-07-26 11:25 | PN ---
Progress Note, Physician History of Present Illness: ambulating oob feels better good po nl bms spiratsbetter - Current Medication List Current Medications: Active Medications Acetaminophen (Tylenol -) 650 mg PO Q4H PRN PRN Reason: TEMP >100.4 Albuterol Sulfate (Ventolin 0.083% Nebulizer Soln -) 1 amp NEB Q4H PRN PRN Reason: SHORT OF BREATH/WHEEZING Albuterol Sulfate (Ventolin Hfa Inhaler -) 2 puff IH Q6H PRN PRN Reason: SHORTNESS OF BREATH Albuterol/Ipratropium (Duoneb -) 1 amp NEB RQID [facility] BEDS AT [facility] Last Admin: 07/26/19 07:35 Dose: 1 amp Amoxicillin/Clavulanate Potassium (Augmentin - 875mg Tablet) 1 tab PO BID@0800, 1730 [facility] 234 BEDS AT [facility] Last Admin: 07/26/19 09:47 Dose: 1 tab Folic Acid (Folic Acid -) 1 mg PO DAILY [facility] 234 BEDS AT [facility] Last Admin: 07/26/19 09:47 Dose: 1 mg Guaifenesin/Codeine Phosphate (Robitussin Ac -) 10 ml PO Q8H PRN PRN Reason: COUGH Last Admin: 07/26/19 01:53 Dose: 10 ml Heparin Sodium (Porcine) (Heparin -) 5,000 unit SQ TID [facility] 234 BEDS [facility] Last Admin: 07/26/19 06:36 Dose: 5,000 unit Methylprednisolone Sodium Succinate (Solu-Medrol -) 40 mg IVPUSH Q8H-IV [facility] 234 BEDS AT [facility] Last Admin: 07/26/19 09:47 Dose: 40 mg Metoprolol Succinate (Toprol Xl -) 50 mg PO DAILY [facility] 234 B[facility]S [facility] Last Admin: 07/26/19 09:47 Dose: 50 mg Oxycodone HCl (Roxicodone -) 5 mg PO Q6H PRN PRN Reason: PAIN LEVEL 4 - 6 Last Admin: 07/24/19 16:42 Dose: 5 mg Pantoprazole Sodium (Protonix -) 40 mg PO DAILY [facility] 234 B[facility]S [facility] Last Admin: 07/26/19 09:47 Dose: 40 mg Phenytoin Sodium (Dilantin -) 200 mg PO BID [facility] 234 BEDS AT [facility] Last Admin: 07/26/19 09:48 Dose: 200 mg Polyethylene Glycol (Miralax (For Daily Use) -) 17 gm PO DAILY [facility] 234 BEDS [facility] Last Admin: 07/26/19 09:49 Dose: Not Given Promethazine HCl (Phenergan -) 12.5 mg PO Q6H PRN PRN Reason: NAUSEA AND/OR VOMITING Rosuvastatin Calcium (Crestor -) 20 mg PO HS [facility] 234 BEDS AT [facility] Tamsulosin HCl (Flomax -) 0.4 mg PO DAILY@0830 [facility] 234 BEDS AT [facility] Last Admin: 07/26/19 09:48 Dose: 0.4 mg - Objective Vital Signs: Vital Signs Temperature 98.0 F 07/26/19 06:00 Pulse Rate 87 07/26/19 06:00 Respiratory Rate 20 07/26/19 08:26 Blood Pressure 116/59 L 07/26/19 06:00 O2 Sat by Pulse Oximetry (%) 95 07/26/19 08:26 Constitutional: Yes: No Distress Eyes: Yes: WNL HENT: Yes: WNL Neck: Yes: WNL Cardiovascular: Yes: Regular Rate and Rhythm Respiratory: Yes: SOB on Exertion, Other (c.t intact ? infil rt side) Gastrointestinal: Yes: WNL ...Rectal Exam: Yes: Deferred Genitourinary: Yes: WNL Breast(s): Yes: WNL Musculoskeletal: Yes: WNL Extremities: Yes: WNL Edema: Yes Edema: RUE: 1+, LLE: 1+ (less today) Peripheral Pulses WNL: Yes Integumentary: Yes: WNL Wound/Incision: Yes: Clean/Dry Neurological: Yes: WNL ...Motor Strength: WNL Psychiatric: Yes: WNL Labs: CBC, BMP 07/26/19 06:05 07/26/19 06:05 INR, PTT INR 1.19 (0.83-1.09) H 07/16/19 13:45 Assessment/Plan dr maria to cap c.t? today cont tx as is p/t eval ? in? am plan to decied wear pt to go nh vs vns aT HOME PALIATIVE CARE?
--- NOTE | 2019-07-26 12:24 | CONSULT ---
Consult Consult Specialty:: Thoracic Surgery Referred by:: Medicine Reason for Consultation:: Lung cancer - History of Present Illness Chief Complaint: dyspnea History of Present Illness: 68M with newly diagnosed lung cancer and malignant effusion s/p drainage with indwelling chest tube. Recent anorexia, weight loss, and dyspnea leading to hospitalization. - History Source History Provided By: Patient, Medical Record - Past Medical History [employer]UT[employer]: Yes: Other (seizure?) Cardio/Vascular: Yes: AFIB Pulmonary: Yes: O2 Dependent Gastrointestinal: Yes: Other (? constipation) Hepatobiliary: Yes: Other (? liver mets ct pnd) Renal/: Yes: BPH, UTI Infectious Disease: Yes: Other (wbc [id number]) Musculoskeletal: Yes: Osteoarthritis ENT: Yes: Sinusitis - Past Surgical History Past Surgical History: Yes: None - Alcohol/Substance Use Hx Alcohol Use: No - Smoking History Smoking history: Former smoker Have you smoked in the past 12 months: No Aproximately how many cigarettes per day: 0 - Social History ADL: Independent Home Medications - Allergies Allergies/Adverse Reactions: Allergies Allergy/AdvReac Type Severity Reaction Status Date / Time No Known Allergies Allergy Verified 07/16/19 14:12 - Home Medications Home Medications: Ambulatory Orders Metoprolol Succinate 25 mg PO DAILY 01/21/19 Albuterol Sulfate [Proair Hfa] 2 neb IH Q4H 07/16/19 Promethazine HCl [Phenergan Liquid -] 12.5 mg PO Q4H 07/16/19 Review of Systems - Review of Systems Constitutional: reports: Unintentional Wgt. Loss, Weakness Respiratory: reports: SOB Physical Exam Vital Signs: Vital Signs Temperature 98.0 F 07/26/19 06:00 Pulse Rate 87 07/26/19 06:00 Respiratory Rate 20 07/26/19 08:26 Blood Pressure 116/59 L 07/26/19 06:00 O2 Sat by Pulse Oximetry (%) 95 07/26/19 08:26 Constitutional: Yes: Mild Distress Respiratory: Yes: Diminished Edema: No Labs: CBC, BMP 07/26/19 06:05 07/26/19 06:05 Imaging - Results X-ray: Image Reviewed Cat Scan: Image Reviewed Problem List - Problems (1) Lung mass Code(s): R91.8 - OTHER NONSPECIFIC ABNORMAL FINDING OF LUNG FIELD (2) Malignancy Code(s): C80.1 - MALIGNANT (PRIMARY) NEOPLASM, UNSPECIFIED (3) Respiratory distress Code(s): R06.03 - ACUTE RESPIRATORY DISTRESS Assessment/Plan 68M smoker, newly diagnosed stage 4 lung cancer and smalll malignant effusion, lung does not expand after drainage. Recommend remove tube and proceed with systemic therapy. May need replacement of pleurx in future but does not appear that tube is palliating him now. OK to remove.
--- NOTE | 2019-07-26 12:35 | PN ---
Progress Note, Physician - Current Medication List Current Medications: Active Medications Acetaminophen (Tylenol -) 650 mg PO Q4H PRN PRN Reason: TEMP >100.4 Albuterol Sulfate (Ventolin 0.083% Nebulizer Soln -) 1 amp NEB Q4H PRN PRN Reason: SHORT OF BREATH/WHEEZING Albuterol Sulfate (Ventolin Hfa Inhaler -) 2 puff IH Q6H PRN PRN Reason: SHORTNESS OF BREATH Albuterol/Ipratropium (Duoneb -) 1 amp NEB RQID [facility] Last Admin: 07/26/19 11:15 Dose: 1 amp Amoxicillin/Clavulanate Potassium (Augmentin - 875mg Tablet) 1 tab PO BID@0800, 1730 [facility] Last Admin: 07/26/19 09:47 Dose: 1 tab Folic Acid (Folic Acid -) 1 mg PO DAILY [facility] Last Admin: 07/26/19 09:47 Dose: 1 mg Guaifenesin/Codeine Phosphate (Robitussin Ac -) 10 ml PO Q8H PRN PRN Reason: COUGH Last Admin: 07/26/19 01:53 Dose: 10 ml Heparin Sodium (Porcine) (Heparin -) 5,000 unit SQ TID [facility] Last Admin: 07/26/19 06:36 Dose: 5,000 unit Methylprednisolone Sodium Succinate (Solu-Medrol -) 40 mg IVPUSH Q8H-IV [facility] Last Admin: 07/26/19 09:47 Dose: 40 mg Metoprolol Succinate (Toprol Xl -) 50 mg PO DAILY [facility] Last Admin: 07/26/19 09:47 Dose: 50 mg Oxycodone HCl (Roxicodone -) 5 mg PO Q6H PRN PRN Reason: PAIN LEVEL 4 - 6 Last Admin: 07/24/19 16:42 Dose: 5 mg Pantoprazole Sodium (Protonix -) 40 mg PO DAILY [facility] Last Admin: 07/26/19 09:47 Dose: 40 mg Phenytoin Sodium (Dilantin -) 200 mg PO BID [facility] Last Admin: 07/26/19 09:48 Dose: 200 mg Polyethylene Glycol (Miralax (For Daily Use) -) 17 gm PO DAILY [facility] Last Admin: 07/26/19 09:49 Dose: Not Given Promethazine HCl (Phenergan -) 12.5 mg PO Q6H PRN PRN Reason: NAUSEA AND/OR VOMITING Rosuvastatin Calcium (Crestor -) 20 mg PO HS [facility] Tamsulosin HCl (Flomax -) 0.4 mg PO DAILY@0830 [facility] Last Admin: 07/26/19 09:48 Dose: 0.4 mg - Objective Vital Signs: Vital Signs Temperature 98.0 F 07/26/19 06:00 Pulse Rate 87 07/26/19 06:00 Respiratory Rate 20 07/26/19 08:26 Blood Pressure 116/59 L 07/26/19 06:00 O2 Sat by Pulse Oximetry (%) 95 07/26/19 08:26 Labs: CBC, BMP 07/26/19 06:05 07/26/19 06:05 INR, PTT INR 1.19 (0.83-1.09) H 07/16/19 13:45
--- NOTE | 2019-07-26 17:03 | PN ---
Progress Note (short form) - Note Progress Note: Radiation Oncology Breathing and cough about the same on NC O2. Chest tube to be removed per CT surgery. CT scans reviewed with radiology: Large central mass compressing right bronchi and SVC. Pathology: pleural fluid + for Adenocarcinoma. 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 Treatments will be palliative. Discussed w/pt and family benefit/risks of palliative RT to right lung mass and mediastinum to try to protect the airways and SVC. Pt would like to proceed with RT simulation and may continue treatment as outpatient when deemed medically stable for discharge. Discussed with Dr. Gomez, addition of concurrent chemo to be further considered. Discussed with pulmonary, no bronch planned at present, cont respiratory support MRI brain when feasible to follow up small lesion noted on CT. Palliative care consult.
--- NOTE | 2019-07-26 18:09 | PN ---
Progress Note, Physician - Current Medication List Current Medications: Active Medications Acetaminophen (Tylenol -) 650 mg PO Q4H PRN PRN Reason: TEMP >100.4 Albuterol Sulfate (Ventolin 0.083% Nebulizer Soln -) 1 amp NEB Q4H PRN PRN Reason: SHORT OF BREATH/WHEEZING Albuterol Sulfate (Ventolin Hfa Inhaler -) 2 puff IH Q6H PRN PRN Reason: SHORTNESS OF BREATH Albuterol/Ipratropium (Duoneb -) 1 amp NEB RQID [facility] Last Admin: 07/26/19 15:50 Dose: 1 amp Amoxicillin/Clavulanate Potassium (Augmentin - 875mg Tablet) 1 tab PO BID@0800, 1730 [facility] Last Admin: 07/26/19 17:16 Dose: 1 tab Folic Acid (Folic Acid -) 1 mg PO DAILY [facility] Last Admin: 07/26/19 09:47 Dose: 1 mg Guaifenesin/Codeine Phosphate (Robitussin Ac -) 10 ml PO Q8H PRN PRN Reason: COUGH Last Admin: 07/26/19 13:07 Dose: 10 ml Heparin Sodium (Porcine) (Heparin -) 5,000 unit SQ TID [facility] Last Admin: 07/26/19 13:07 Dose: 5,000 unit Methylprednisolone Sodium Succinate (Solu-Medrol -) 40 mg IVPUSH Q8H-IV [facility] Last Admin: 07/26/19 17:16 Dose: 40 mg Metoprolol Succinate (Toprol Xl -) 50 mg PO DAILY [facility] Last Admin: 07/26/19 09:47 Dose: 50 mg Oxycodone HCl (Roxicodone -) 5 mg PO Q6H PRN PRN Reason: PAIN LEVEL 4 - 6 Last Admin: 07/24/19 16:42 Dose: 5 mg Pantoprazole Sodium (Protonix -) 40 mg PO DAILY [facility] Last Admin: 07/26/19 09:47 Dose: 40 mg Phenytoin Sodium (Dilantin -) 200 mg PO BID [facility] Last Admin: 07/26/19 09:48 Dose: 200 mg Polyethylene Glycol (Miralax (For Daily Use) -) 17 gm PO DAILY [facility] Last Admin: 07/26/19 09:49 Dose: Not Given Promethazine HCl (Phenergan -) 12.5 mg PO Q6H PRN PRN Reason: NAUSEA AND/OR VOMITING Rosuvastatin Calcium (Crestor -) 20 mg PO HS [facility] Tamsulosin HCl (Flomax -) 0.4 mg PO DAILY@0830 [facility] Last Admin: 07/26/19 09:48 Dose: 0.4 mg - Objective Vital Signs: Vital Signs Temperature 99 F 07/26/19 14:00 Pulse Rate 90 07/26/19 14:00 Respiratory Rate 22 H 07/26/19 14:00 Blood Pressure 124/60 07/26/19 14:00 O2 Sat by Pulse Oximetry (%) 95 07/26/19 08:26 Labs: CBC, BMP 07/26/19 06:05 07/26/19 06:05 INR, PTT INR 1.19 (0.83-1.09) H 07/16/19 13:45 Assessment/Plan son reqesting tranfer of mother to another physicion as per daughter manohar reluctantly transfering her to hospitilists care gave order to rn now verbally son cursedat me on phone prior to her condition worsonig i rica knutson pt relationship has been severed
--- NOTE | 2019-07-26 19:21 | PN ---
Progress Note (short form) - Note Progress Note: I have seen and examined Earl Obrien S: Stable. Sitting in chair breathing with mask. Denies pain at this time O: Last Vital Signs Temp Pulse Resp BP Pulse Ox 99 F 90 22 H 124/60 95 07/26/19 14:00 07/26/19 14:00 07/26/19 14:00 07/26/19 14:00 07/26/19 08:26 Gen: Sitting in chair not in distress HEENT: MMM CVS S1 S2 [place] Lungs: Good air entry mild ronchi/wheezing on ocassion Abdomen: SOft, NT, ND Extrem: No edema Neuro: Moves all extremities Current Medications Acetaminophen (Tylenol -) 650 mg PO Q4H PRN PRN Reason: TEMP >100.4 Albuterol Sulfate (Ventolin 0.083% Nebulizer Soln -) 1 amp NEB Q4H PRN PRN Reason: SHORT OF BREATH/WHEEZING Albuterol Sulfate (Ventolin Hfa Inhaler -) 2 puff IH Q6H PRN PRN Reason: SHORTNESS OF BREATH Albuterol/Ipratropium (Duoneb -) 1 amp NEB RQID [facility] Last Admin: 07/26/19 15:50 Dose: 1 amp Amoxicillin/Clavulanate Potassium (Augmentin - 875mg Tablet) 1 tab PO BID@0800, 1730 [facility] Last Admin: 07/26/19 17:16 Dose: 1 tab Folic Acid (Folic Acid -) 1 mg PO DAILY [facility] Last Admin: 07/26/19 09:47 Dose: 1 mg Guaifenesin/Codeine Phosphate (Robitussin Ac -) 10 ml PO Q8H PRN PRN Reason: COUGH Last Admin: 07/26/19 13:07 Dose: 10 ml Heparin Sodium (Porcine) (Heparin -) 5,000 unit SQ TID [facility] Last Admin: 07/26/19 13:07 Dose: 5,000 unit Methylprednisolone Sodium Succinate (Solu-Medrol -) 40 mg IVPUSH Q8H-IV [facility] Last Admin: 07/26/19 17:16 Dose: 40 mg Metoprolol Succinate (Toprol Xl -) 50 mg PO DAILY [facility] Last Admin: 07/26/19 09:47 Dose: 50 mg Oxycodone HCl (Roxicodone -) 5 mg PO Q6H PRN PRN Reason: PAIN LEVEL 4 - 6 Last Admin: 07/24/19 16:42 Dose: 5 mg Pantoprazole Sodium (Protonix -) 40 mg PO DAILY [facility] Last Admin: 07/26/19 09:47 Dose: 40 mg Phenytoin Sodium (Dilantin -) 200 mg PO BID [facility] Last Admin: 07/26/19 09:48 Dose: 200 mg Polyethylene Glycol (Miralax (For Daily Use) -) 17 gm PO DAILY [facility] Last Admin: 07/26/19 09:49 Dose: Not Given Promethazine HCl (Phenergan -) 12.5 mg PO Q6H PRN PRN Reason: NAUSEA AND/OR VOMITING Rosuvastatin Calcium (Crestor -) 20 mg PO HS [facility] Tamsulosin HCl (Flomax -) 0.4 mg PO DAILY@0830 [facility] Last Admin: 07/26/19 09:48 Dose: 0.4 mg 07/26/19 06:05 07/26/19 06:05 Plan: 68 y/o gentleman w/ PMH HLD, Afib(on ASA) and recent onset SOB-- CT chest -- right hilar mass measuring 8 x 7.5 x 7.5cm extending into the mediastinum with indentation into the SVC. 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 Several 1cm nodules in the LLL. Left hilar lymphadenopathy. S/p biopsy of RUL nodule compatible with Adenocarcinoma. Will add PDL1 and stage 4 lung Ca mutation workup (including EGFR, ALK, ROS, MET, etc and Foundation One). Thoracentesis revealed malignant cells. Plan: 1) Palliative RT. Jerry Radiation Oncology note. 2) Molecular Profile. PDL1, EGFR, ROS, ALK, MET and Foundation One profile. Chemoimmunotherapy, immunotherapy and/or targeted agents are possible therapeutic strategies 3) MRI brain
[2019-07-26] MEDS: ROSUVASTATIN CA 20 MG TABLET (FP) PO SCH (21:38)
[2019-07-27] MEDS: methylPREDNISolone NA SUCC 40 MG/1 ML VIAL IVPUSH SCH ×3 (01:40→17:34)
[2019-07-27] MEDS: HEPARIN NA (PORCINE) 5,000 UNITS/ML 1ML VIAL SQ SCH ×3 (06:14→21:36)
[2019-07-27 07:05] LABS: BASO % 0.3 % (0-2.0); EOS % 0.1 % (0-4.5); HEMATOCRIT 33.3 % (35.4-49); LYMPH % 5.1 % (8-40); MCH 28.8 pg (25.7-33.7); MCHC 33.1 g/dl (32.0-35.9); MEAN CELL VOLUME 86.9 fl (80-96); MEAN PLT VOLUME 7.2 fl (7.5-11.1); MONO % 4.7 % (3.8-10.2); NEUT % 89.8 % (42.8-82.8); PLATELET COUNT 522 K/MM3 (134-434); RBC 3.84 M/mm3 (4.00-5.60); RDW 17.5 % (11.9-15.9); WHITE BLOOD COUNT 16.1 K/mm3 (4.0-10.0)
[2019-07-27 07:37] LABS: ALBUMIN 2.2 g/dl (3.4-5.0); BILIRUBIN,TOTAL 0.3 mg/dL (0.2-1); BLOOD UREA NITROGEN 31.8 mg/dL (7-18); CALCIUM 8.5 mg/dL (8.5-10.1); CREATININE 1.5 mg/dL (0.55-1.3); POTASSIUM 5.2 mmol/L (3.5-5.1); TOT PROT 6.1 g/dl (6.4-8.2)
[2019-07-27] MEDS: ALBUTEROL SO4 2.5/IPRATROPIUM 0.5 INH SOL 3 ML VIAL.NEB. NEB SCH ×4 (08:15→20:37)
--- NOTE | 2019-07-27 08:23 | PN ---
Progress Note (short form) - Note Progress Note: OOB to chair. Reports feeling better. Pleural catheter capped. No CP. For possible RT mapping today. Intake & Output 07/24/19 07/25/19 07/26/19 07/27/19 23:59 23:59 23:59 23:59 Intake Total 470 300 630 20 Output Total 200 700 Balance 270 300 -70 20 Weight 197 lb 9.6 oz Last Vital Signs Temp Pulse Resp BP Pulse Ox 97.9 F 92 H 20 136/68 96 07/27/19 06:00 07/27/19 06:00 07/27/19 06:00 07/27/19 06:00 07/26/19 21:00 Active Medications Acetaminophen (Tylenol -) 650 mg PO Q4H PRN PRN Reason: TEMP >100.4 Albuterol Sulfate (Ventolin 0.083% Nebulizer Soln -) 1 amp NEB Q4H PRN PRN Reason: SHORT OF BREATH/WHEEZING Albuterol Sulfate (Ventolin Hfa Inhaler -) 2 puff IH Q6H PRN PRN Reason: SHORTNESS OF BREATH Albuterol/Ipratropium (Duoneb -) 1 amp NEB RQID [facility] Last Admin: 07/26/19 20:20 Dose: 1 amp Amoxicillin/Clavulanate Potassium (Augmentin - 875mg Tablet) 1 tab PO BID@0800, 1730 [facility] Last Admin: 07/26/19 17:16 Dose: 1 tab Folic Acid (Folic Acid -) 1 mg PO DAILY [facility] Last Admin: 07/26/19 09:47 Dose: 1 mg Guaifenesin/Codeine Phosphate (Robitussin Ac -) 10 ml PO Q8H PRN PRN Reason: COUGH Last Admin: 07/26/19 21:50 Dose: 10 ml Heparin Sodium (Porcine) (Heparin -) 5,000 unit SQ TID [facility] Last Admin: 07/27/19 06:14 Dose: 5,000 unit Methylprednisolone Sodium Succinate (Solu-Medrol -) 40 mg IVPUSH Q8H-IV [facility] Last Admin: 07/27/19 01:40 Dose: 40 mg Metoprolol Succinate (Toprol Xl -) 50 mg PO DAILY [facility] Last Admin: 07/26/19 09:47 Dose: 50 mg Oxycodone HCl (Roxicodone -) 5 mg PO Q6H PRN PRN Reason: PAIN LEVEL 4 - 6 Last Admin: 07/24/19 16:42 Dose: 5 mg Pantoprazole Sodium (Protonix -) 40 mg PO DAILY [facility] Last Admin: 07/26/19 09:47 Dose: 40 mg Phenytoin Sodium (Dilantin -) 200 mg PO BID [facility] Last Admin: 07/26/19 21:37 Dose: 200 mg Polyethylene Glycol (Miralax (For Daily Use) -) 17 gm PO DAILY [facility] Last Admin: 07/26/19 09:49 Dose: Not Given Promethazine HCl (Phenergan -) 12.5 mg PO Q6H PRN PRN Reason: NAUSEA AND/OR VOMITING Rosuvastatin Calcium (Crestor -) 20 mg PO HS [facility] Last Admin: 07/26/19 21:38 Dose: 20 mg Tamsulosin HCl (Flomax -) 0.4 mg PO DAILY@0830 [facility] Last Admin: 07/26/19 09:48 Dose: 0.4 mg Constitutional: Yes: Awake and alert, mildly tachypneic at rest Eyes: Yes: WNL HENT: Yes: WNL Neck: Yes: WNL Cardiovascular: Yes: Regular Rate and Rhythm, S1, S2 Respiratory: Yes: Diminished on the right, scattered bilateral Rhonchi Gastrointestinal: Yes: Normal Bowel Sounds, Soft Extremities: Yes: WNL Edema: Yes Labs: Laboratory Results - last 24 hr 07/26/19 07/27/19 06:05 06:00 WBC 13.8 H RBC 3.90 L Hgb 11.1 L Hct 33.7 L MCV 86.3 MCH 28.5 MCHC 33.1 RDW 17.9 H Plt Count 565 H MPV 7.0 L Absolute Neuts (auto) 12.3 H Neutrophils % 88.6 H Lymphocytes % 4.7 L Monocytes % 6.3 Eosinophils % 0.1 Basophils % 0.3 Nucleated RBC % 0 Sodium 137 Potassium 5.2 H Chloride 101 Carbon Dioxide 28 Anion Gap 9 BUN 31.8 H Creatinine 1.5 H Est GFR (CKD-EPI)AfAm 54.27 Est GFR (CKD-EPI)NonAf 46.83 Random Glucose 107 H Calcium 8.5 Total Bilirubin 0.3 AST 24 ALT 26 Alkaline Phosphatase 207 H Total Protein 6.1 L Albumin 2.2 L Problem List - Problems (1) Lung mass Code(s): R91.8 - OTHER NONSPECIFIC ABNORMAL FINDING OF LUNG FIELD (2) Malignancy Code(s): C80.1 - MALIGNANT (PRIMARY) NEOPLASM, UNSPECIFIED (3) Respiratory distress Code(s): R06.03 - ACUTE RESPIRATORY DISTRESS (4) Obesity Code(s): E66.9 - OBESITY, UNSPECIFIED (5) Hyponatremia Code(s): E87.1 - HYPO-OSMOLALITY AND HYPONATREMIA Assessment/Plan Progressive Lung Cancer - [place] ca Pleural Effusion malignant r/o SVC syndrome Hyponatremia Lactic Acidosis PAF Hyperlipidemia Anemia Pulmonary HTN - STAT CXR to assess for reaccumulation of pleural fluid: if increased can consider PleureX catheter - inhaled bronchodilators - rate control - DVT prophylaxis - O2 - inhaled bronchodilators - For possible RT mapping today Dr Granado
[2019-07-27] MEDS ORDERED: SODIUM POLYSTYRENE SULFONATE 15 GM/60 ML BOTTLE PO ONE (08:31)
[2019-07-27] MEDS: AMOX TR/POT CLAV 875MG/125MG TABLETS (FP) PO SCH ×2 (09:30→17:34)
[2019-07-27] MEDS: FOLIC ACID 1 MG TABLET (FP) PO SCH (09:30)
[2019-07-27] MEDS: TAMSULOSIN HCL 0.4 MG CAP PO SCH (09:30)
[2019-07-27] MEDS: oxyCODONE HCL 5 MG TABLET PO PRN (09:31)
[2019-07-27] MEDS: PHENYTOIN NA EXTENDED 100 MG CAPSULE (FP) PO SCH ×2 (09:31→21:36)
[2019-07-27] MEDS: PANTOPRAZOLE 40 MG TABLET (FP) PO SCH (09:31)
[2019-07-27] MEDS: guaiFENesin/CODEINE 5 ML UNIT-DOSE CUPS PO PRN ×2 (09:31→22:30)
[2019-07-27 11:04] LABS: ANISOCYTOSIS 1+; MACROCYTOSIS 1+; OVALOCYTE 1+; PLATELET ESTIMATE INCREASED
--- NOTE | 2019-07-27 12:51 | PN ---
Progress Note, Physician History of Present Illness: patient stable wbc has climbed up - Current Medication List Current Medications: Active Medications Acetaminophen (Tylenol -) 650 mg PO Q4H PRN PRN Reason: TEMP >100.4 Last Admin: 07/27/19 09:31 Dose: 650 mg Albuterol Sulfate (Ventolin 0.083% Nebulizer Soln -) 1 amp NEB Q4H PRN PRN Reason: SHORT OF BREATH/WHEEZING Albuterol Sulfate (Ventolin Hfa Inhaler -) 2 puff IH Q6H PRN PRN Reason: SHORTNESS OF BREATH Albuterol/Ipratropium (Duoneb -) 1 amp NEB RQID [facility] Last Admin: 07/27/19 11:11 Dose: Not Given Amoxicillin/Clavulanate Potassium (Augmentin - 875mg Tablet) 1 tab PO BID@0800, 1730 [facility] Last Admin: 07/27/19 09:30 Dose: 1 tab Folic Acid (Folic Acid -) 1 mg PO DAILY [facility] Last Admin: 07/27/19 09:30 Dose: 1 mg Guaifenesin/Codeine Phosphate (Robitussin Ac -) 10 ml PO Q8H PRN PRN Reason: COUGH Last Admin: 07/27/19 09:31 Dose: 10 ml Heparin Sodium (Porcine) (Heparin -) 5,000 unit SQ TID [facility] Last Admin: 07/27/19 06:14 Dose: 5,000 unit Methylprednisolone Sodium Succinate (Solu-Medrol -) 40 mg IVPUSH Q8H-IV [facility] Last Admin: 07/27/19 09:30 Dose: 40 mg Metoprolol Succinate (Toprol Xl -) 50 mg PO DAILY [facility] Last Admin: 07/27/19 09:31 Dose: 50 mg Pantoprazole Sodium (Protonix -) 40 mg PO DAILY [facility] Last Admin: 07/27/19 09:31 Dose: 40 mg Phenytoin Sodium (Dilantin -) 200 mg PO BID [facility] Last Admin: 07/27/19 09:31 Dose: 200 mg Polyethylene Glycol (Miralax (For Daily Use) -) 17 gm PO DAILY [facility] Last Admin: 07/26/19 09:49 Dose: Not Given Promethazine HCl (Phenergan -) 12.5 mg PO Q6H PRN PRN Reason: NAUSEA AND/OR VOMITING Rosuvastatin Calcium (Crestor -) 20 mg PO HS [facility] Last Admin: 07/26/19 21:38 Dose: 20 mg Tamsulosin HCl (Flomax -) 0.4 mg PO DAILY@0830 [facility] Last Admin: 07/27/19 09:30 Dose: 0.4 mg - Objective Vital Signs: Vital Signs Temperature 97.9 F 07/27/19 06:00 Pulse Rate 87 07/27/19 08:36 Respiratory Rate 24 H 07/27/19 08:36 Blood Pressure 140/78 07/27/19 08:36 O2 Sat by Pulse Oximetry (%) 95 07/27/19 08:44 Constitutional: Yes: No Distress, Calm Cardiovascular: Yes: S1, S2 Respiratory: Yes: Poor Air Entry Gastrointestinal: Yes: Normal Bowel Sounds, Soft Musculoskeletal: Yes: WNL Extremities: Yes: WNL Neurological: Yes: Alert, Oriented Psychiatric: Yes: Alert, Oriented Labs: CBC, BMP 07/27/19 06:00 07/27/19 06:00 INR, PTT INR 1.19 (0.83-1.09) H 07/16/19 13:45 Assessment/Plan Likely Progressive Lung Cancer - suspect small cell lung cancer Pleural Effusion likely malignant s/p thoracentesis s/p CT guided Lung Biopsy Right Pneumothorax s/p chest tube placement r/o SVC syndrome r/o Pneumonia Hyponatremia Lactic Acidosis Atrial Fibrillation Hyperlipidemia -plan will restart iv abx will d/w pul
--- NOTE | 2019-07-27 14:29 | PN ---
Progress Note, Physician History of Present Illness: resting comphotably c.t intactwbc higher?wachful eyes? tumor leukocytosis - Current Medication List Current Medications: Active Medications Acetaminophen (Tylenol -) 650 mg PO Q4H PRN PRN Reason: TEMP >100.4 Last Admin: 07/27/19 09:31 Dose: 650 mg Albuterol Sulfate (Ventolin 0.083% Nebulizer Soln -) 1 amp NEB Q4H PRN PRN Reason: SHORT OF BREATH/WHEEZING Albuterol Sulfate (Ventolin Hfa Inhaler -) 2 puff IH Q6H PRN PRN Reason: SHORTNESS OF BREATH Albuterol/Ipratropium (Duoneb -) 1 amp NEB RQID [facility] Last Admin: 07/27/19 11:11 Dose: Not Given Amoxicillin/Clavulanate Potassium (Augmentin - 875mg Tablet) 1 tab PO BID@0800, 1730 [facility] Last Admin: 07/27/19 09:30 Dose: 1 tab Folic Acid (Folic Acid -) 1 mg PO DAILY [facility] Last Admin: 07/27/19 09:30 Dose: 1 mg Guaifenesin/Codeine Phosphate (Robitussin Ac -) 10 ml PO Q8H PRN PRN Reason: COUGH Last Admin: 07/27/19 09:31 Dose: 10 ml Heparin Sodium (Porcine) (Heparin -) 5,000 unit SQ TID [facility] Last Admin: 07/27/19 06:14 Dose: 5,000 unit Methylprednisolone Sodium Succinate (Solu-Medrol -) 40 mg IVPUSH Q8H-IV [facility] Last Admin: 07/27/19 09:30 Dose: 40 mg Metoprolol Succinate (Toprol Xl -) 50 mg PO DAILY [facility] Last Admin: 07/27/19 09:31 Dose: 50 mg Pantoprazole Sodium (Protonix -) 40 mg PO DAILY [facility] Last Admin: 07/27/19 09:31 Dose: 40 mg Phenytoin Sodium (Dilantin -) 200 mg PO BID [facility] Last Admin: 07/27/19 09:31 Dose: 200 mg Polyethylene Glycol (Miralax (For Daily Use) -) 17 gm PO DAILY [facility] Last Admin: 07/26/19 09:49 Dose: Not Given Promethazine HCl (Phenergan -) 12.5 mg PO Q6H PRN PRN Reason: NAUSEA AND/OR VOMITING Rosuvastatin Calcium (Crestor -) 20 mg PO HS [facility] Last Admin: 07/26/19 21:38 Dose: 20 mg Tamsulosin HCl (Flomax -) 0.4 mg PO DAILY@0830 [facility] Last Admin: 07/27/19 09:30 Dose: 0.4 mg - Objective Vital Signs: Vital Signs Temperature 97.9 F 07/27/19 06:00 Pulse Rate 87 07/27/19 08:36 Respiratory Rate 24 H 07/27/19 08:36 Blood Pressure 140/78 07/27/19 08:36 O2 Sat by Pulse Oximetry (%) 95 07/27/19 08:44 Constitutional: Yes: No Distress, Calm Eyes: Yes: WNL HENT: Yes: WNL Neck: Yes: WNL Cardiovascular: Yes: Regular Rate and Rhythm Respiratory: Yes: Other (c .t intact) Gastrointestinal: Yes: WNL ...Rectal Exam: Yes: Deferred Genitourinary: Yes: WNL Breast(s): Yes: WNL Musculoskeletal: Yes: WNL Extremities: Yes: WNL Edema: Yes Edema: LLE: 1+, RLE: 1+ Peripheral Pulses WNL: Yes Integumentary: Yes: WNL Wound/Incision: Yes: Clean/Dry Neurological: Yes: WNL ...Motor Strength: WNL Psychiatric: Yes: WNL Labs: CBC, BMP 07/27/19 06:00 07/27/19 06:00 INR, PTT INR 1.19 (0.83-1.09) H 07/16/19 13:45 Assessment/Plan no svt!!! na better pulm htn?? rt lung cancer bun cr high today ?iv
[2019-07-27] MEDS: SODIUM CHLORIDE 1,000 ML IV SCH (15:02)
[2019-07-27] MEDS: POLYETHYLENE GLYCOL 3350 119 GM BTL PO SCH (15:04)
[2019-07-27] MEDS ORDERED: SODIUM POLYSTYRENE SULFONATE 15 GM/60 ML BOTTLE ONE (15:26)
--- NOTE | 2019-07-27 15:54 | PN ---
Progress Note (short form) - Note Progress Note: Radiation Oncology Came over to office for planning session today. Tolerated CT scan without much difficulty. Plan to proceed with palliative RT on Thursday if still in house. Otherwise as outpatient. Continue present medical/pulmonary mgt.
[2019-07-27] MEDS: ROSUVASTATIN CA 20 MG TABLET (FP) PO SCH (21:36)
[2019-07-28] MEDS: methylPREDNISolone NA SUCC 40 MG/1 ML VIAL IVPUSH SCH ×4 (02:50→20:06)
[2019-07-28] MEDS: ALBUTEROL SO4 2.5/IPRATROPIUM 0.5 INH SOL 3 ML VIAL.NEB. NEB SCH ×4 (07:43→20:10)
[2019-07-28] MEDS ORDERED: LIDOCAINE 5% TOPICAL PATCH ONE (08:38)
[2019-07-28] MEDS: HEPARIN NA (PORCINE) 5,000 UNITS/ML 1ML VIAL SQ SCH ×3 (08:54→21:28)
[2019-07-28] MEDS: NYSTATIN 500,000 UNITS/5 ML SUSPENSION PO SCH ×4 (08:56→21:28)
[2019-07-28] MEDS: guaiFENesin/CODEINE 5 ML UNIT-DOSE CUPS PO PRN ×2 (08:56→21:38)
--- NOTE | 2019-07-28 11:08 | PN ---
Progress Note, Physician History of Present Illness: more compfotable today bm ok legs n/c ? lyphodemaoob labs not done? apetite adequet onco r/t on thursday if ins ok ? ma - Current Medication List Current Medications: Active Medications Acetaminophen (Tylenol -) 650 mg PO Q4H PRN PRN Reason: TEMP >100.4 Last Admin: 07/27/19 09:31 Dose: 650 mg Albuterol Sulfate (Ventolin 0.083% Nebulizer Soln -) 1 amp NEB Q4H PRN PRN Reason: SHORT OF BREATH/WHEEZING Albuterol Sulfate (Ventolin Hfa Inhaler -) 2 puff IH Q6H PRN PRN Reason: SHORTNESS OF BREATH Albuterol/Ipratropium (Duoneb -) 1 amp NEB RQID [facility] Last Admin: 07/28/19 07:43 Dose: 1 amp Amoxicillin/Clavulanate Potassium (Augmentin - 875mg Tablet) 1 tab PO BID@0800, 1730 [facility] Last Admin: 07/27/19 17:34 Dose: 1 tab Folic Acid (Folic Acid -) 1 mg PO DAILY [facility] Last Admin: 07/27/19 09:30 Dose: 1 mg Guaifenesin/Codeine Phosphate (Robitussin Ac -) 10 ml PO Q8H PRN PRN Reason: COUGH Last Admin: 07/28/19 08:56 Dose: 10 ml Heparin Sodium (Porcine) (Heparin -) 5,000 unit SQ TID [facility] Last Admin: 07/28/19 08:54 Dose: Not Given Sodium Chloride (Normal Saline -) 1,000 mls @ 75 mls/hr IV ASDIR [facility] Last Admin: 07/27/19 15:02 Dose: 75 mls/hr Methylprednisolone Sodium Succinate (Solu-Medrol -) 40 mg IVPUSH Q8H-IV [facility] Last Admin: 07/28/19 02:50 Dose: 40 mg Metoprolol Succinate (Toprol Xl -) 50 mg PO DAILY [facility] Last Admin: 07/27/19 09:31 Dose: 50 mg Nystatin (Nystatin Oral Suspension -) 500,000 units PO BID [facility] Last Admin: 07/28/19 08:56 Dose: 500,000 units Pantoprazole Sodium (Protonix -) 40 mg PO DAILY [facility] Last Admin: 07/27/19 09:31 Dose: 40 mg Phenytoin Sodium (Dilantin -) 200 mg PO BID [facility] Last Admin: 07/27/19 21:36 Dose: 200 mg Polyethylene Glycol (Miralax (For Daily Use) -) 17 gm PO DAILY [facility] Last Admin: 07/27/19 15:04 Dose: Not Given Promethazine HCl (Phenergan -) 12.5 mg PO Q6H PRN PRN Reason: NAUSEA AND/OR VOMITING Last Admin: 07/28/19 08:56 Dose: 12.5 mg Rosuvastatin Calcium (Crestor -) 20 mg PO HS [facility] Last Admin: 07/27/19 21:36 Dose: 20 mg Tamsulosin HCl (Flomax -) 0.4 mg PO DAILY@0830 [facility] Last Admin: 07/27/19 09:30 Dose: 0.4 mg - Objective Vital Signs: Vital Signs Temperature 98.7 F 07/28/19 05:00 Pulse Rate 96 H 07/28/19 05:00 Respiratory Rate 20 07/28/19 05:00 Blood Pressure 154/67 07/28/19 05:00 O2 Sat by Pulse Oximetry (%) 94 L 07/27/19 21:00 Constitutional: Yes: Calm Eyes: Yes: WNL HENT: Yes: WNL Neck: Yes: WNL Cardiovascular: Yes: WNL Respiratory: Yes: SOB on Exertion, Other (c.t out) Gastrointestinal: Yes: Hypoactive Bowel Sounds ...Rectal Exam: Yes: Deferred Genitourinary: Yes: WNL Breast(s): Yes: WNL Musculoskeletal: Yes: WNL Extremities: Yes: WNL Edema: Yes Edema: LLE: 3+, RLE: 3+ Peripheral Pulses WNL: Yes Integumentary: Yes: WNL Wound/Incision: Yes: Clean/Dry Neurological: Yes: Other (anxiety) ...Motor Strength: WNL Psychiatric: Yes: Other (anxiety) Labs: CBC, BMP 07/27/19 06:00 07/27/19 06:00 INR, PTT INR 1.19 (0.83-1.09) H 07/16/19 13:45 Assessment/Plan xanax po prn c,t out chk labs today onco thursday r/t tx ? n.h fot tx and rehab? fam agrees scds oob
[2019-07-28] MEDS ORDERED: ALPRAZolam 0.25 MG TABLET PO PRN (11:24)
[2019-07-28] MEDS: FOLIC ACID 1 MG TABLET (FP) PO SCH (12:10)
[2019-07-28] MEDS: TAMSULOSIN HCL 0.4 MG CAP PO SCH (12:10)
[2019-07-28] MEDS: PANTOPRAZOLE 40 MG TABLET (FP) PO SCH (12:10)
[2019-07-28] MEDS: PHENYTOIN NA EXTENDED 100 MG CAPSULE (FP) PO SCH ×2 (12:10→21:28)
[2019-07-28] MEDS: AMOX TR/POT CLAV 875MG/125MG TABLETS (FP) PO SCH ×2 (12:11→20:05)
[2019-07-28] MEDS: POLYETHYLENE GLYCOL 3350 119 GM BTL PO SCH (12:11)
--- NOTE | 2019-07-28 12:18 | PN ---
Progress Note (short form) - Note Progress Note: PULMONARY Still short of breath at rest. Reports anxiety. Remains on 40% ventimask saturating 90%. Vital Signs Period Temp Pulse Resp BP Sys/[place]if[place] Pulse Ox Last 24 Hr 97.4 F-98.7 F 83-99 20-20 113-154/62-70 94 Gen: tachypneic at rest Heart: RRR Lung: distant breath sounds Abd: soft, nontender Ext: + edema CBC, BMP 07/27/19 06:00 07/27/19 06:00 Active Medications Acetaminophen (Tylenol -) 650 mg PO Q4H PRN PRN Reason: TEMP >100.4 Last Admin: 07/27/19 09:31 Dose: 650 mg Albuterol Sulfate (Ventolin 0.083% Nebulizer Soln -) 1 amp NEB Q4H PRN PRN Reason: SHORT OF BREATH/WHEEZING Albuterol Sulfate (Ventolin Hfa Inhaler -) 2 puff IH Q6H PRN PRN Reason: SHORTNESS OF BREATH Albuterol/Ipratropium (Duoneb -) 1 amp NEB RQID [facility] Last Admin: 07/28/19 11:30 Dose: 1 amp Alprazolam (Xanax -) 0.25 mg PO Q12H PRN PRN Reason: ANXIETY Last Admin: 07/28/19 12:14 Dose: 0.25 mg Amoxicillin/Clavulanate Potassium (Augmentin - 875mg Tablet) 1 tab PO BID@0800, 1730 [facility] Last Admin: 07/28/19 12:11 Dose: 1 tab Folic Acid (Folic Acid -) 1 mg PO DAILY [facility] Last Admin: 07/28/19 12:10 Dose: 1 mg Guaifenesin/Codeine Phosphate (Robitussin Ac -) 10 ml PO Q8H PRN PRN Reason: COUGH Last Admin: 07/28/19 08:56 Dose: 10 ml Heparin Sodium (Porcine) (Heparin -) 5,000 unit SQ TID [facility] Last Admin: 07/28/19 08:54 Dose: Not Given Sodium Chloride (Normal Saline -) 1,000 mls @ 75 mls/hr IV ASDIR [facility] Last Admin: 07/27/19 15:02 Dose: 75 mls/hr Methylprednisolone Sodium Succinate (Solu-Medrol -) 40 mg IVPUSH Q8H-IV [facility] Last Admin: 07/28/19 12:14 Dose: 40 mg Metoprolol Succinate (Toprol Xl -) 50 mg PO DAILY [facility] Last Admin: 07/28/19 12:10 Dose: 50 mg Nystatin (Nystatin Oral Suspension -) 500,000 units PO BID [facility] Last Admin: 07/28/19 12:11 Dose: Not Given Pantoprazole Sodium (Protonix -) 40 mg PO DAILY [facility] Last Admin: 07/28/19 12:10 Dose: 40 mg Phenytoin Sodium (Dilantin -) 200 mg PO BID [facility] Last Admin: 07/28/19 12:10 Dose: 200 mg Polyethylene Glycol (Miralax (For Daily Use) -) 17 gm PO DAILY [facility] Last Admin: 07/28/19 12:11 Dose: Not Given Promethazine HCl (Phenergan -) 12.5 mg PO Q6H PRN PRN Reason: NAUSEA AND/OR VOMITING Last Admin: 07/28/19 08:56 Dose: 12.5 mg Rosuvastatin Calcium (Crestor -) 20 mg PO HS [facility] Last Admin: 07/27/19 21:36 Dose: 20 mg Tamsulosin HCl (Flomax -) 0.4 mg PO DAILY@0830 [facility] Last Admin: 07/28/19 12:10 Dose: 0.4 mg A/P Progressive Lung Cancer - [place] ca Pleural Effusion malignant r/o SVC syndrome Hyponatremia Lactic Acidosis PAF Hyperlipidemia Anemia Pulmonary HTN - agree with anxiolytic - continue medrol - inhaled bronchodilators - rate control - O2 to keep SpO2 >90% - for palliative RT - prognosis guarded
[2019-07-28 13:07] LABS: BASO % 0.2 % (0-2.0); EOS % 0.2 % (0-4.5); HEMATOCRIT 32.2 % (35.4-49); HEMOGLOBIN 10.7 GM/dL (11.7-16.9); LYMPH % 4.8 % (8-40); MCHC 33.3 g/dl (32.0-35.9); MEAN CELL VOLUME 87.1 fl (80-96); MEAN PLT VOLUME 7.1 fl (7.5-11.1); MONO % 10.1 % (3.8-10.2); NEUT % 84.7 % (42.8-82.8); PLATELET COUNT 450 K/MM3 (134-434); RBC 3.69 M/mm3 (4.00-5.60); RDW 17.8 % (11.9-15.9)
[2019-07-28 13:27] LABS: ALBUMIN 2.1 g/dl (3.4-5.0); BILIRUBIN,TOTAL 0.2 mg/dL (0.2-1); BLOOD UREA NITROGEN 26.3 mg/dL (7-18); CALCIUM 8.4 mg/dL (8.5-10.1); POTASSIUM 4.6 mmol/L (3.5-5.1); TOT PROT 5.9 g/dl (6.4-8.2)
--- NOTE | 2019-07-28 14:55 | PN ---
Progress Note, Physician History of Present Illness: stable chest tube removed wbc trending down - Current Medication List Current Medications: Active Medications Acetaminophen (Tylenol -) 650 mg PO Q4H PRN PRN Reason: TEMP >100.4 Last Admin: 07/27/19 09:31 Dose: 650 mg Albuterol Sulfate (Ventolin 0.083% Nebulizer Soln -) 1 amp NEB Q4H PRN PRN Reason: SHORT OF BREATH/WHEEZING Albuterol Sulfate (Ventolin Hfa Inhaler -) 2 puff IH Q6H PRN PRN Reason: SHORTNESS OF BREATH Albuterol/Ipratropium (Duoneb -) 1 amp NEB RQID [facility] Last Admin: 07/28/19 11:30 Dose: 1 amp Alprazolam (Xanax -) 0.25 mg PO Q12H PRN PRN Reason: ANXIETY Last Admin: 07/28/19 12:14 Dose: 0.25 mg Amoxicillin/Clavulanate Potassium (Augmentin - 875mg Tablet) 1 tab PO BID@0800, 1730 [facility] Last Admin: 07/28/19 12:11 Dose: 1 tab Folic Acid (Folic Acid -) 1 mg PO DAILY [facility] Last Admin: 07/28/19 12:10 Dose: 1 mg Guaifenesin/Codeine Phosphate (Robitussin Ac -) 10 ml PO Q8H PRN PRN Reason: COUGH Last Admin: 07/28/19 08:56 Dose: 10 ml Heparin Sodium (Porcine) (Heparin -) 5,000 unit SQ TID [facility] Last Admin: 07/28/19 08:54 Dose: Not Given Sodium Chloride (Normal Saline -) 1,000 mls @ 75 mls/hr IV ASDIR [facility] Last Admin: 07/27/19 15:02 Dose: 75 mls/hr Methylprednisolone Sodium Succinate (Solu-Medrol -) 40 mg IVPUSH Q8H-IV [facility] Last Admin: 07/28/19 12:14 Dose: 40 mg Metoprolol Succinate (Toprol Xl -) 50 mg PO DAILY [facility] Last Admin: 07/28/19 12:10 Dose: 50 mg Nystatin (Nystatin Oral Suspension -) 500,000 units PO BID [facility] Last Admin: 07/28/19 12:11 Dose: Not Given Pantoprazole Sodium (Protonix -) 40 mg PO DAILY [facility] Last Admin: 07/28/19 12:10 Dose: 40 mg Phenytoin Sodium (Dilantin -) 200 mg PO BID [facility] Last Admin: 07/28/19 12:10 Dose: 200 mg Polyethylene Glycol (Miralax (For Daily Use) -) 17 gm PO DAILY [facility] Last Admin: 07/28/19 12:11 Dose: Not Given Promethazine HCl (Phenergan -) 12.5 mg PO Q6H PRN PRN Reason: NAUSEA AND/OR VOMITING Last Admin: 07/28/19 08:56 Dose: 12.5 mg Rosuvastatin Calcium (Crestor -) 20 mg PO HS [facility] Last Admin: 07/27/19 21:36 Dose: 20 mg Tamsulosin HCl (Flomax -) 0.4 mg PO DAILY@0830 [facility] Last Admin: 07/28/19 12:10 Dose: 0.4 mg - Objective Vital Signs: Vital Signs Temperature 98.4 F 07/28/19 14:00 Pulse Rate 89 07/28/19 14:00 Respiratory Rate 20 07/28/19 14:00 Blood Pressure 119/63 07/28/19 14:00 O2 Sat by Pulse Oximetry (%) 97 07/28/19 09:00 Constitutional: Yes: No Distress, Calm Cardiovascular: Yes: S1, S2 Respiratory: Yes: Poor Air Entry, Other Gastrointestinal: Yes: Normal Bowel Sounds, Soft Musculoskeletal: Yes: WNL Extremities: Yes: WNL Neurological: Yes: Alert, Oriented Psychiatric: Yes: Alert, Oriented Labs: CBC, BMP 07/28/19 12:35 07/28/19 12:35 INR, PTT INR 1.19 (0.83-1.09) H 07/16/19 13:45 Assessment/Plan Likely Progressive Lung Cancer - suspect small cell lung cancer Pleural Effusion likely malignant s/p thoracentesis s/p CT guided Lung Biopsy Right Pneumothorax s/p chest tube placement r/o SVC syndrome r/o Pneumonia Hyponatremia Lactic Acidosis Atrial Fibrillation Hyperlipidemia -plan continue current mgmt continue to follow wbc
[2019-07-28] MEDS: SODIUM CHLORIDE 1,000 ML IV SCH (15:31)
[2019-07-28] MEDS: ROSUVASTATIN CA 20 MG TABLET (FP) PO SCH (21:28)
[2019-07-29] MEDS: methylPREDNISolone NA SUCC 40 MG/1 ML VIAL IVPUSH SCH ×3 (01:48→18:23)
[2019-07-29] MEDS: HEPARIN NA (PORCINE) 5,000 UNITS/ML 1ML VIAL SQ SCH ×3 (06:22→21:59)
[2019-07-29] MEDS: ALBUTEROL SO4 2.5/IPRATROPIUM 0.5 INH SOL 3 ML VIAL.NEB. NEB SCH ×4 (07:38→20:50)
[2019-07-29] MEDS: FOLIC ACID 1 MG TABLET (FP) PO SCH (09:58)
[2019-07-29] MEDS: TAMSULOSIN HCL 0.4 MG CAP PO SCH (09:58)
[2019-07-29] MEDS: NYSTATIN 500,000 UNITS/5 ML SUSPENSION PO SCH ×2 (09:58→21:59)
[2019-07-29] MEDS: AMOX TR/POT CLAV 875MG/125MG TABLETS (FP) PO SCH ×2 (09:58→18:23)
[2019-07-29] MEDS: PHENYTOIN NA EXTENDED 100 MG CAPSULE (FP) PO SCH ×2 (09:58→21:58)
[2019-07-29] MEDS: POLYETHYLENE GLYCOL 3350 119 GM BTL PO SCH (09:59)
[2019-07-29] MEDS: PANTOPRAZOLE 40 MG TABLET (FP) PO SCH (10:00)
--- NOTE | 2019-07-29 10:46 | PN ---
Progress Note, Physician History of Present Illness: pulmonary alert,oob-chair,less dyspneic - Current Medication List Current Medications: Active Medications Acetaminophen (Tylenol -) 650 mg PO Q4H PRN PRN Reason: TEMP >100.4 Last Admin: 07/27/19 09:31 Dose: 650 mg Albuterol Sulfate (Ventolin 0.083% Nebulizer Soln -) 1 amp NEB Q4H PRN PRN Reason: SHORT OF BREATH/WHEEZING Albuterol Sulfate (Ventolin Hfa Inhaler -) 2 puff IH Q6H PRN PRN Reason: SHORTNESS OF BREATH Albuterol/Ipratropium (Duoneb -) 1 amp NEB RQID [facility] Last Admin: 07/29/19 07:38 Dose: 1 amp Alprazolam (Xanax -) 0.25 mg PO Q12H PRN PRN Reason: ANXIETY Last Admin: 07/28/19 12:14 Dose: 0.25 mg Amoxicillin/Clavulanate Potassium (Augmentin - 875mg Tablet) 1 tab PO BID@0800, 1730 [facility] Last Admin: 07/29/19 09:58 Dose: 1 tab Folic Acid (Folic Acid -) 1 mg PO DAILY [facility] Last Admin: 07/29/19 09:58 Dose: 1 mg Heparin Sodium (Porcine) (Heparin -) 5,000 unit SQ TID [facility] Last Admin: 07/29/19 06:22 Dose: 5,000 unit Sodium Chloride (Normal Saline -) 1,000 mls @ 75 mls/hr IV ASDIR [facility] Last Admin: 07/28/19 15:31 Dose: Not Given Methylprednisolone Sodium Succinate (Solu-Medrol -) 40 mg IVPUSH Q8H-IV [facility] Last Admin: 07/29/19 09:58 Dose: 40 mg Metoprolol Succinate (Toprol Xl -) 50 mg PO DAILY [facility] Last Admin: 07/29/19 09:58 Dose: 50 mg Nystatin (Nystatin Oral Suspension -) 500,000 units PO BID [facility] Last Admin: 07/29/19 09:58 Dose: 500,000 units Pantoprazole Sodium (Protonix -) 40 mg PO DAILY [facility] Last Admin: 07/29/19 10:00 Dose: 40 mg Phenytoin Sodium (Dilantin -) 200 mg PO BID [facility] Last Admin: 07/29/19 09:58 Dose: 200 mg Polyethylene Glycol (Miralax (For Daily Use) -) 17 gm PO DAILY [facility] Last Admin: 07/29/19 09:59 Dose: Not Given Promethazine HCl (Phenergan -) 12.5 mg PO Q6H PRN PRN Reason: NAUSEA AND/OR VOMITING Last Admin: 07/28/19 08:56 Dose: 12.5 mg Rosuvastatin Calcium (Crestor -) 20 mg PO HS [facility] Last Admin: 07/28/19 21:28 Dose: 20 mg Tamsulosin HCl (Flomax -) 0.4 mg PO DAILY@0830 [facility] Last Admin: 07/29/19 09:58 Dose: 0.4 mg - Objective Vital Signs: Vital Signs Temperature 98 F 07/29/19 10:00 Pulse Rate 100 H 07/29/19 10:00 Respiratory Rate 29 H 07/29/19 10:00 Blood Pressure 170/65 07/29/19 10:00 O2 Sat by Pulse Oximetry (%) 95 07/28/19 21:00 Constitutional: Yes: Well Nourished, Calm Eyes: Yes: WNL HENT: Yes: WNL Neck: Yes: WNL Cardiovascular: Yes: Regular Rate and Rhythm, S1, S2 Respiratory: Yes: Rhonchi (few scattered rhonchi) Gastrointestinal: Yes: Normal Bowel Sounds, Soft Extremities: Yes: WNL Edema: Yes Labs: Problem List - Problems (1) Lung mass Code(s): R91.8 - OTHER NONSPECIFIC ABNORMAL FINDING OF LUNG FIELD (2) Malignancy Code(s): C80.1 - MALIGNANT (PRIMARY) NEOPLASM, UNSPECIFIED (3) Respiratory distress Code(s): R06.03 - ACUTE RESPIRATORY DISTRESS (4) Obesity Code(s): E66.9 - OBESITY, UNSPECIFIED (5) Hyponatremia Code(s): E87.1 - HYPO-OSMOLALITY AND HYPONATREMIA Assessment/Plan ASSESSMENT AND PLAN: Progressive Lung Cancer - Adeno ca Pleural Effusion malignant r/o SVC syndrome Hyponatremia corrected Lactic Acidosis PAF Hyperlipidemia Anemia Pulmonary Htn - inhaled bronchodilators - DVT prophylaxis - O2 - inhaled bronchodilators - RT/CHEMO as per oncology - taper steroids DR FRYE
--- NOTE | 2019-07-29 12:59 | PN ---
Progress Note (short form) - Note Progress Note: Patient seen and examined Sitting in chair Unable to lie flat because of SVC Cough with sputum production Denies pain Denies difficulty swallowing Last Vital Signs Temp Pulse Resp BP Pulse Ox 98 F 100 H 29 H 170/65 95 07/29/19 10:00 07/29/19 10:00 07/29/19 10:00 07/29/19 10:00 07/28/19 21:00 HEENT: ANTOINETTE, EOM Intact Oropharynx: No thrush, No mucositis Cor: RSR, No murmurs, No gallops Lungs: decreased breath sounds RLL Abd: Soft, Normal bowel sounds, No organomegaly Ext:RUE edema Skin: No rashes, Integument intact CBC, BMP 07/28/19 12:35 07/28/19 12:35 Current Medications Generic Name Dose Route Start Last Admin Trade Name Freq PRN Reason Stop Dose Admin Acetaminophen 650 mg 07/25/19 22:09 07/27/19 09:31 Tylenol - PO 650 mg Q4H PRN Administration TEMP >100.4 Albuterol Sulfate 1 amp 07/25/19 22:09 Ventolin 0.083% Nebulizer Soln - NEB Q4H PRN SHORT OF BREATH/WHEEZING Albuterol Sulfate 2 puff 07/25/19 22:09 Ventolin Hfa Inhaler - IH Q6H PRN SHORTNESS OF BREATH Albuterol/Ipratropium 1 amp 07/26/19 08:00 07/29/19 11:20 Duoneb - NEB 1 amp RQID [facility] Administration Alprazolam 0.25 mg 07/28/19 11:24 07/28/19 12:14 Xanax - PO 0.25 mg Q12H PRN Administration ANXIETY Amoxicillin/Clavulanate Potassium 1 tab 07/25/19 17:30 07/29/19 09:58 Augmentin - 875mg Tablet PO 1 tab BID@0800,1730 [facility] Administration Folic Acid 1 mg 07/24/19 10:00 07/29/19 09:58 Folic Acid - PO 1 mg DAILY [facility] Administration Heparin Sodium (Porcine) 5,000 unit 07/26/19 06:00 07/29/19 06:22 Heparin - SQ 5,000 unit TID [facility] Administration Sodium Chloride 1,000 mls @ 75 mls/hr 07/27/19 14:30 07/28/19 15:31 Normal Saline - IV Not Given ASDIR [facility] Methylprednisolone Sodium Succinate 40 mg 07/26/19 02:00 07/29/19 09:58 Solu-Medrol - IVPUSH 40 mg Q8H-IV [facility] Administration Metoprolol Succinate 50 mg 07/26/19 10:00 07/29/19 09:58 Toprol Xl - PO 50 mg DAILY [facility] Administration Nystatin 500,000 units 07/28/19 10:00 07/29/19 09:58 Nystatin Oral Suspension - PO 500,000 units BID [facility] Administration Pantoprazole Sodium 40 mg 07/26/19 10:00 07/29/19 10:00 Protonix - PO 40 mg DAILY [facility] Administration Phenytoin Sodium 200 mg 07/26/19 10:00 07/29/19 09:58 Dilantin - PO 200 mg BID [facility] Administration Polyethylene Glycol 17 gm 07/26/19 10:00 07/29/19 09:59 Miralax (For Daily Use) - PO Not Given DAILY [facility] Promethazine HCl 12.5 mg 07/25/19 22:09 07/28/19 08:56 Phenergan - PO 12.5 mg Q6H PRN Administration NAUSEA AND/OR VOMITING Rosuvastatin Calcium 20 mg 07/26/19 22:00 07/28/19 21:28 Crestor - PO 20 mg HS [facility] Administration Tamsulosin HCl 0.4 mg 07/26/19 08:30 07/29/19 09:58 Flomax - PO 0.4 mg DAILY@0830 [facility] Administration Impression: Aden[place] of lung Pleural effusion - s/p chest tube drainage SVC Unable to complete staging with MRI of brain as patient is unable to lie flat for test May need out patient open MRI To begin RT ??add chemotherapy PDL-1 pending Molecular markers need be done tolook for actionable mutations. Would taper steroids .
--- NOTE | 2019-07-29 13:30 | PN ---
Progress Note, Physician - Current Medication List Current Medications: Active Medications Acetaminophen (Tylenol -) 650 mg PO Q4H PRN PRN Reason: TEMP >100.4 Last Admin: 07/27/19 09:31 Dose: 650 mg Albuterol Sulfate (Ventolin 0.083% Nebulizer Soln -) 1 amp NEB Q4H PRN PRN Reason: SHORT OF BREATH/WHEEZING Albuterol Sulfate (Ventolin Hfa Inhaler -) 2 puff IH Q6H PRN PRN Reason: SHORTNESS OF BREATH Albuterol/Ipratropium (Duoneb -) 1 amp NEB RQID [facility] Last Admin: 07/29/19 11:20 Dose: 1 amp Alprazolam (Xanax -) 0.25 mg PO Q12H PRN PRN Reason: ANXIETY Last Admin: 07/28/19 12:14 Dose: 0.25 mg Amoxicillin/Clavulanate Potassium (Augmentin - 875mg Tablet) 1 tab PO BID@0800, 1730 [facility] Last Admin: 07/29/19 09:58 Dose: 1 tab Folic Acid (Folic Acid -) 1 mg PO DAILY [facility] Last Admin: 07/29/19 09:58 Dose: 1 mg Heparin Sodium (Porcine) (Heparin -) 5,000 unit SQ TID [facility] Last Admin: 07/29/19 06:22 Dose: 5,000 unit Sodium Chloride (Normal Saline -) 1,000 mls @ 75 mls/hr IV ASDIR [facility] Last Admin: 07/28/19 15:31 Dose: Not Given Methylprednisolone Sodium Succinate (Solu-Medrol -) 40 mg IVPUSH Q8H-IV [facility] Last Admin: 07/29/19 09:58 Dose: 40 mg Metoprolol Succinate (Toprol Xl -) 50 mg PO DAILY [facility] Last Admin: 07/29/19 09:58 Dose: 50 mg Nystatin (Nystatin Oral Suspension -) 500,000 units PO BID [facility] Last Admin: 07/29/19 09:58 Dose: 500,000 units Pantoprazole Sodium (Protonix -) 40 mg PO DAILY [facility] Last Admin: 07/29/19 10:00 Dose: 40 mg Phenytoin Sodium (Dilantin -) 200 mg PO BID [facility] Last Admin: 07/29/19 09:58 Dose: 200 mg Polyethylene Glycol (Miralax (For Daily Use) -) 17 gm PO DAILY [facility] Last Admin: 07/29/19 09:59 Dose: Not Given Promethazine HCl (Phenergan -) 12.5 mg PO Q6H PRN PRN Reason: NAUSEA AND/OR VOMITING Last Admin: 07/28/19 08:56 Dose: 12.5 mg Rosuvastatin Calcium (Crestor -) 20 mg PO HS [facility] Last Admin: 07/28/19 21:28 Dose: 20 mg Tamsulosin HCl (Flomax -) 0.4 mg PO DAILY@0830 [facility] Last Admin: 07/29/19 09:58 Dose: 0.4 mg - Objective Vital Signs: Vital Signs Temperature 98 F 07/29/19 10:00 Pulse Rate 100 H 07/29/19 10:00 Respiratory Rate 29 H 07/29/19 10:00 Blood Pressure 170/65 07/29/19 10:00 O2 Sat by Pulse Oximetry (%) 95 07/28/19 21:00 Labs: CBC, BMP 07/28/19 12:35 07/28/19 12:35 INR, PTT INR 1.19 (0.83-1.09) H 07/16/19 13:45
--- NOTE | 2019-07-29 13:51 | PN ---
Progress Note, Physician History of Present Illness: ? appers uncomfortabl ? labered breathing very anxuios to go home iv to be d/agustin? pre post 02 tx ? home - Current Medication List Current Medications: Active Medications Acetaminophen (Tylenol -) 650 mg PO Q4H PRN PRN Reason: TEMP >100.4 Last Admin: 07/27/19 09:31 Dose: 650 mg Albuterol Sulfate (Ventolin 0.083% Nebulizer Soln -) 1 amp NEB Q4H PRN PRN Reason: SHORT OF BREATH/WHEEZING Albuterol Sulfate (Ventolin Hfa Inhaler -) 2 puff IH Q6H PRN PRN Reason: SHORTNESS OF BREATH Albuterol/Ipratropium (Duoneb -) 1 amp NEB RQID [facility] Last Admin: 07/29/19 11:20 Dose: 1 amp Alprazolam (Xanax -) 0.25 mg PO Q12H PRN PRN Reason: ANXIETY Last Admin: 07/28/19 12:14 Dose: 0.25 mg Amoxicillin/Clavulanate Potassium (Augmentin - 875mg Tablet) 1 tab PO BID@0800, 1730 [facility] Last Admin: 07/29/19 09:58 Dose: 1 tab Folic Acid (Folic Acid -) 1 mg PO DAILY [facility] Last Admin: 07/29/19 09:58 Dose: 1 mg Heparin Sodium (Porcine) (Heparin -) 5,000 unit SQ TID [facility] Last Admin: 07/29/19 06:22 Dose: 5,000 unit Sodium Chloride (Normal Saline -) 1,000 mls @ 75 mls/hr IV ASDIR [facility] Last Admin: 07/28/19 15:31 Dose: Not Given Methylprednisolone Sodium Succinate (Solu-Medrol -) 40 mg IVPUSH Q8H-IV [facility] Last Admin: 07/29/19 09:58 Dose: 40 mg Metoprolol Succinate (Toprol Xl -) 50 mg PO DAILY [facility] Last Admin: 07/29/19 09:58 Dose: 50 mg Nystatin (Nystatin Oral Suspension -) 500,000 units PO BID [facility] Last Admin: 07/29/19 09:58 Dose: 500,000 units Pantoprazole Sodium (Protonix -) 40 mg PO DAILY [facility] Last Admin: 07/29/19 10:00 Dose: 40 mg Phenytoin Sodium (Dilantin -) 200 mg PO BID [facility] Last Admin: 07/29/19 09:58 Dose: 200 mg Polyethylene Glycol (Miralax (For Daily Use) -) 17 gm PO DAILY [facility] Last Admin: 07/29/19 09:59 Dose: Not Given Promethazine HCl (Phenergan -) 12.5 mg PO Q6H PRN PRN Reason: NAUSEA AND/OR VOMITING Last Admin: 07/28/19 08:56 Dose: 12.5 mg Rosuvastatin Calcium (Crestor -) 20 mg PO HS [facility] Last Admin: 07/28/19 21:28 Dose: 20 mg Tamsulosin HCl (Flomax -) 0.4 mg PO DAILY@0830 [facility] Last Admin: 07/29/19 09:58 Dose: 0.4 mg - Objective Vital Signs: Vital Signs Temperature 98 F 07/29/19 10:00 Pulse Rate 100 H 07/29/19 10:00 Respiratory Rate 29 H 07/29/19 10:00 Blood Pressure 170/65 07/29/19 10:00 O2 Sat by Pulse Oximetry (%) 95 07/28/19 21:00 Constitutional: Yes: Anxious Eyes: Yes: WNL HENT: Yes: WNL Neck: Yes: WNL Cardiovascular: Yes: WNL Respiratory: Yes: Diminished, On Nasal O2, SOB on Exertion Gastrointestinal: Yes: WNL ...Rectal Exam: Yes: Deferred Genitourinary: Yes: WNL Breast(s): Yes: WNL Musculoskeletal: Yes: WNL Extremities: Yes: WNL Edema: Yes Edema: LUE: 1+, RUE: 1+, LLE: 2+, RLE: 2+ Peripheral Pulses WNL: Yes Integumentary: Yes: WNL Wound/Incision: Yes: Clean/Dry Neurological: Yes: Weakness ...Motor Strength: WNL Psychiatric: Yes: WNL Labs: CBC, BMP 07/28/19 12:35 07/28/19 12:35 INR, PTT INR 1.19 (0.83-1.09) H 07/16/19 13:45 Assessment/Plan xanex prn out pt mri brain connot laydown flat pre post 02 tx for? home reqesting home p/t d/c iv
--- NOTE | 2019-07-29 15:37 | PN ---
Progress Note (short form) - Note Progress Note: Radiation Oncology Short of breath on oxygen. Unable to lie flat for MRI brain. Impression: Advanced pulmonary adenocarcinoma with malignant effusion and SVC/ airway compression. Planning to start thoracic RT to relieve obstructions, on Thursday if medically stable. Son called me, family considering transferring [place] [facility] undecided as yet. Continue present medical/pulmonary mgt. Systemic tx pending markers.
[2019-07-29] MEDS: ALPRAZolam 0.25 MG TABLET PO PRN (21:58)
[2019-07-29] MEDS: ROSUVASTATIN CA 20 MG TABLET (FP) PO SCH (21:58)
[2019-07-30] MEDS: methylPREDNISolone NA SUCC 40 MG/1 ML VIAL IVPUSH SCH ×3 (02:14→18:37)
[2019-07-30] MEDS: HEPARIN NA (PORCINE) 5,000 UNITS/ML 1ML VIAL SQ SCH ×3 (06:22→21:53)
[2019-07-30] MEDS: ALBUTEROL SO4 2.5/IPRATROPIUM 0.5 INH SOL 3 ML VIAL.NEB. NEB SCH ×4 (07:27→20:30)
[2019-07-30 09:00] LABS: BASO % 0.4 % (0-2.0); HEMATOCRIT 35.2 % (35.4-49); HEMOGLOBIN 11.4 GM/dL (11.7-16.9); LYMPH % 4.6 % (8-40); MCH 28.4 pg (25.7-33.7); MCHC 32.4 g/dl (32.0-35.9); MEAN CELL VOLUME 87.9 fl (80-96); MEAN PLT VOLUME 7.2 fl (7.5-11.1); PLATELET COUNT 439 K/MM3 (134-434); RDW 18.2 % (11.9-15.9); WHITE BLOOD COUNT 14.1 K/mm3 (4.0-10.0)
[2019-07-30 09:25] LABS: BLOOD UREA NITROGEN 33.1 mg/dL (7-18); CALCIUM 8.8 mg/dL (8.5-10.1); CREATININE 1.1 mg/dL (0.55-1.3); POTASSIUM 5.1 mmol/L (3.5-5.1)
[2019-07-30] MEDS: AMOX TR/POT CLAV 875MG/125MG TABLETS (FP) PO SCH ×2 (09:43→18:38)
[2019-07-30] MEDS: FOLIC ACID 1 MG TABLET (FP) PO SCH (09:43)
[2019-07-30] MEDS: PHENYTOIN NA EXTENDED 100 MG CAPSULE (FP) PO SCH ×2 (09:43→21:53)
[2019-07-30] MEDS: NYSTATIN 500,000 UNITS/5 ML SUSPENSION PO SCH ×2 (09:44→21:52)
[2019-07-30] MEDS: TAMSULOSIN HCL 0.4 MG CAP PO SCH (09:44)
[2019-07-30] MEDS: PANTOPRAZOLE 40 MG TABLET (FP) PO SCH (09:44)
[2019-07-30] MEDS: POLYETHYLENE GLYCOL 3350 119 GM BTL PO SCH (09:45)
[2019-07-30] MEDS: ALPRAZolam 0.25 MG TABLET PO PRN ×2 (14:12→21:52)
--- NOTE | 2019-07-30 14:17 | PN ---
Progress Note (short form) - Note Progress Note: OOB to chair. Mildly tachypneic at rest. No CP. Noted for possible RT on Thursday. Intake & Output 07/27/19 07/28/19 07/29/19 07/30/19 23:59 23:59 23:59 23:59 Intake Total 150 270 100 500 Output Total 300 Balance 150 270 100 200 Weight 193 lb 9.6 oz Last Vital Signs Temp Pulse Resp BP Pulse Ox 98.1 F 88 22 H 138/66 92 L 07/30/19 10:00 07/30/19 10:00 07/30/19 10:00 07/30/19 10:00 07/30/19 09:00 Active Medications Acetaminophen (Tylenol -) 650 mg PO Q4H PRN PRN Reason: TEMP >100.4 Last Admin: 07/27/19 09:31 Dose: 650 mg Albuterol Sulfate (Ventolin 0.083% Nebulizer Soln -) 1 amp NEB Q4H PRN PRN Reason: SHORT OF BREATH/WHEEZING Last Admin: 07/29/19 22:45 Dose: 1 amp Albuterol Sulfate (Ventolin Hfa Inhaler -) 2 puff IH Q6H PRN PRN Reason: SHORTNESS OF BREATH Albuterol/Ipratropium (Duoneb -) 1 amp NEB RQID [facility] Last Admin: 07/30/19 12:02 Dose: 1 amp Alprazolam (Xanax -) 0.5 mg PO Q8H PRN PRN Reason: ANXIETY Last Admin: 07/30/19 14:12 Dose: 0.5 mg Amoxicillin/Clavulanate Potassium (Augmentin - 875mg Tablet) 1 tab PO BID@0800, 1730 [facility] Last Admin: 07/30/19 09:43 Dose: 1 tab Folic Acid (Folic Acid -) 1 mg PO DAILY [facility] Last Admin: 07/30/19 09:43 Dose: 1 mg Heparin Sodium (Porcine) (Heparin -) 5,000 unit SQ TID [facility] Last Admin: 07/30/19 14:09 Dose: 5,000 unit Methylprednisolone Sodium Succinate (Solu-Medrol -) 40 mg IVPUSH Q8H-IV [facility] Last Admin: 07/30/19 10:19 Dose: 40 mg Metoprolol Succinate (Toprol Xl -) 50 mg PO DAILY [facility] Last Admin: 10/12/19 09:44 Dose: 50 mg Nystatin (Nystatin Oral Suspension -) 500,000 units PO BID [facility] Last Admin: 07/30/19 09:44 Dose: 500,000 units Pantoprazole Sodium (Protonix -) 40 mg PO DAILY [facility] Last Admin: 07/30/19 09:44 Dose: 40 mg Phenytoin Sodium (Dilantin -) 200 mg PO BID [facility] Last Admin: 07/30/19 09:43 Dose: 200 mg Polyethylene Glycol (Miralax (For Daily Use) -) 17 gm PO DAILY [facility] Last Admin: 07/30/19 09:45 Dose: Not Given Promethazine HCl (Phenergan -) 12.5 mg PO Q6H PRN PRN Reason: NAUSEA AND/OR VOMITING Last Admin: 07/28/19 08:56 Dose: 12.5 mg Rosuvastatin Calcium (Crestor -) 20 mg PO HS [facility] Last Admin: 07/29/19 21:58 Dose: 20 mg Tamsulosin HCl (Flomax -) 0.4 mg PO DAILY@0830 [facility] Last Admin: 07/30/19 09:44 Dose: 0.4 mg Constitutional: Yes: Awake and alert, mildly tachypneic at rest Eyes: Yes: WNL HENT: Yes: WNL Neck: Yes: WNL Cardiovascular: Yes: Regular Rate and Rhythm, S1, S2 Respiratory: Yes: Diminished on the right, scattered bilateral Rhonchi Gastrointestinal: Yes: Normal Bowel Sounds, Soft Extremities: Yes: WNL Edema: Yes Labs: Laboratory Results - last 24 hr 07/16/19 07/16/19 07/16/19 13:45 13:45 13:45 WBC 9.3 RBC 4.09 Hgb 11.7 Hct 35.7 MCV 87.3 MCH 28.5 MCHC 32.6 RDW 16.9 H Plt Count 380 MPV 7.3 L Absolute Neuts (auto) 6.5 Neutrophils % 69.1 Lymphocytes % 15.0 D Monocytes % 15.0 H Eosinophils % 0.4 D Basophils % 0.5 Nucleated RBC % 0 PT with INR 14.10 H INR 1.19 H PTT (Actin FS) 35.8 Puncture Site ABG pH ABG pCO2 at Pt Temp ABG pO2 at Pt Temp ABG HCO3 ABG O2 Sat (Measured) ABG O2 Content ABG Base Excess Manjit Test VBG pH POC VBG pCO2 POC VBG pO2 VBG HCO3 VBG O2 Sat (Glenn) VBG Base Excess O2 Delivery Device Oxygen Flow Rate Sodium Potassium Chloride Carbon Dioxide Anion Gap BUN Creatinine Est GFR (CKD-EPI)AfAm Est GFR (CKD-EPI)NonAf Random Glucose Serum Osmolality Lactic Acid Calcium Phosphorus Magnesium Total Bilirubin AST ALT Alkaline Phosphatase LD Total Creatine Kinase Creatine Kinase Index CK-MB (CK-2) Troponin I < 0.02 B-Natriuretic Peptide Total Protein Albumin Prostate Specific Ag Urine Color Urine Appearance Urine pH Ur Specific [place] Urine Protein Urine Glucose (UA) Urine Ketones Urine Blood Urine Nitrite Urine Bilirubin Urine Urobilinogen Ur Leukocyte Esterase Urine WBC (Auto) Urine RBC (Auto) Urine Casts (Auto) U Pathogenic Cast Auto U Epithel Cells (Auto) Urine Bacteria (Auto) Urine Osmolality Ur Random Sodium Fluid Source Fluid WBC Fluid RBC Fluid Neutrophils Fluid Lymphocytes Fluid Chloride Fluid Glucose Fluid Total Protein Fluid Albumin Body Fluid LDH Source Fluid Amylase Fluid Cholesterol Fluid Triglycerides Pleural Monocytes Pleural Eosinophils Pleural Diff Comment 07/16/19 07/16/19 07/16/19 13:45 13:45 13:45 WBC RBC Hgb Hct MCV MCH MCHC RDW Plt Count MPV Absolute Neuts (auto) Neutrophils % Lymphocytes % Monocytes % Eosinophils % Basophils % Nucleated RBC % PT with INR INR PTT (Actin FS) Puncture Site ABG pH ABG pCO2 at Pt Temp ABG pO2 at Pt Temp ABG HCO3 ABG O2 Sat (Measured) ABG O2 Content ABG Base Excess Manjit Test VBG pH 7.39 POC VBG pCO2 42.7 POC VBG pO2 < 49 H VBG HCO3 24.9 VBG O2 Sat (Glenn) 72.8 VBG Base Excess 0.3 O2 Delivery Device Oxygen Flow Rate Sodium 136 Potassium 4.2 Chloride 101 Carbon Dioxide 25 Anion Gap 10 BUN 17.7 Creatinine 1.0 Est GFR (CKD-EPI)AfAm 88.61 Est GFR (CKD-EPI)NonAf 76.45 Random Glucose 95 Serum Osmolality Lactic Acid 3.0 H* Calcium 8.9 Phosphorus Magnesium Total Bilirubin 0.6 AST 18 ALT 21 Alkaline Phosphatase 118 H LD Total Creatine Kinase Creatine Kinase Index CK-MB (CK-2) Troponin I B-Natriuretic Peptide 131.9 H Total Protein 6.4 Albumin 2.6 L Prostate Specific Ag Urine Color Urine Appearance Urine pH Ur Specific [place] Urine Protein Urine Glucose (UA) Urine Ketones Urine Blood Urine Nitrite Urine Bilirubin Urine Urobilinogen Ur Leukocyte Esterase Urine WBC (Auto) Urine RBC (Auto) Urine Casts (Auto) U Pathogenic Cast Auto U Epithel Cells (Auto) Urine Bacteria (Auto) Urine Osmolality Ur Random Sodium Fluid Source Fluid WBC Fluid RBC Fluid Neutrophils Fluid Lymphocytes Fluid Chloride Fluid Glucose Fluid Total Protein Fluid Albumin Body Fluid LDH Source Fluid Amylase Fluid Cholesterol Fluid Triglycerides Pleural Monocytes Pleural Eosinophils Pleural Diff Comment 07/16/19 07/17/19 07/17/19 14:45 09:00 09:00 WBC 9.9 RBC 3.78 L Hgb 11.0 L Hct 32.8 L MCV 86.7 MCH 29.2 MCHC 33.7 RDW 16.9 H Plt Count 368 MPV 7.3 L Absolute Neuts (auto) 7.8 Neutrophils % 78.5 Lymphocytes % 10.1 D Monocytes % 10.4 H Eosinophils % 0.5 Basophils % 0.5 Nucleated RBC % 0 PT with INR INR PTT (Actin FS) Puncture Site ABG pH ABG pCO2 at Pt Temp ABG pO2 at Pt Temp ABG HCO3 ABG O2 Sat (Measured) ABG O2 Content ABG Base Excess Manjit Test VBG pH POC VBG pCO2 POC VBG pO2 VBG HCO3 VBG O2 Sat (Glenn) VBG Base Excess O2 Delivery Device Oxygen Flow Rate Sodium 135 L Potassium 4.4 Chloride 101 Carbon Dioxide 24 Anion Gap 11 BUN 17.3 Creatinine 0.9 Est GFR (CKD-EPI)AfAm 100.65 Est GFR (CKD-EPI)NonAf 86.84 Random Glucose 121 H Serum Osmolality Lactic Acid Calcium 8.5 Phosphorus Magnesium Total Bilirubin 0.8 AST 17 ALT 19 Alkaline Phosphatase 111 LD Total Creatine Kinase Creatine Kinase Index CK-MB (CK-2) Troponin I B-Natriuretic Peptide Total Protein 5.9 L Albumin 2.4 L Prostate Specific Ag Urine Color Dk yellow Urine Appearance Cloudy Urine pH 5.5 Ur Specific [place] 1.034 Urine Protein 1+ H Urine Glucose (UA) Negative Urine Ketones Trace H Urine Blood Negative Urine Nitrite Negative Urine Bilirubin 1+ H Urine Urobilinogen 1.0 Ur Leukocyte Esterase Negative Urine WBC (Auto) 3 Urine RBC (Auto) 6.7 Urine Casts (Auto) 57 U Pathogenic Cast Auto None seen U Epithel Cells (Auto) 3.0 Urine Bacteria (Auto) 1.0 Urine Osmolality Ur Random Sodium Fluid Source Fluid WBC Fluid RBC Fluid Neutrophils Fluid Lymphocytes Fluid Chloride Fluid Glucose Fluid Total Protein Fluid Albumin Body Fluid LDH Source Fluid Amylase Fluid Cholesterol Fluid Triglycerides Pleural Monocytes Pleural Eosinophils Pleural Diff Comment 07/18/19 07/18/19 07/18/19 07:10 07:10 07:10 WBC 9.6 RBC 3.77 L Hgb 10.9 L Hct 32.4 L MCV 86.1 MCH 28.9 MCHC 33.6 RDW 16.9 H Plt Count 400 MPV 7.6 Absolute Neuts (auto) 7.2 Neutrophils % 75.1 Lymphocytes % 11.6 Monocytes % 11.9 H Eosinophils % 0.7 Basophils % 0.7 Nucleated RBC % 0 PT with INR INR PTT (Actin FS) Puncture Site ABG pH ABG pCO2 at Pt Temp ABG pO2 at Pt Temp ABG HCO3 ABG O2 Sat (Measured) ABG O2 Content ABG Base Excess Manjit Test VBG pH POC VBG pCO2 POC VBG pO2 VBG HCO3 VBG O2 Sat (Glenn) VBG Base Excess O2 Delivery Device Oxygen Flow Rate Sodium 134 L Potassium 4.4 Chloride 98 Carbon Dioxide 26 Anion Gap 11 BUN 25.4 H Creatinine 1.1 Est GFR (CKD-EPI)AfAm 78.97 Est GFR (CKD-EPI)NonAf 68.13 Random Glucose 103 Serum Osmolality Lactic Acid 3.2 H* Calcium 8.7 Phosphorus Magnesium Total Bilirubin AST ALT Alkaline Phosphatase LD Total Creatine Kinase Creatine Kinase Index CK-MB (CK-2) Troponin I B-Natriuretic Peptide Total Protein Albumin Prostate Specific Ag Urine Color Urine Appearance Urine pH Ur Specific [place] Urine Protein Urine Glucose (UA) Urine Ketones Urine Blood Urine Nitrite Urine Bilirubin Urine Urobilinogen Ur Leukocyte Esterase Urine WBC (Auto) Urine RBC (Auto) Urine Casts (Auto) U Pathogenic Cast Auto U Epithel Cells (Auto) Urine Bacteria (Auto) Urine Osmolality Ur Random Sodium Fluid Source Fluid WBC Fluid RBC Fluid Neutrophils Fluid Lymphocytes Fluid Chloride Fluid Glucose Fluid Total Protein Fluid Albumin Body Fluid LDH Source Fluid Amylase Fluid Cholesterol Fluid Triglycerides Pleural Monocytes Pleural Eosinophils Pleural Diff Comment 07/19/19 07/19/19 07/19/19 00:10 12:01 12:01 WBC RBC Hgb Hct MCV MCH MCHC RDW Plt Count MPV Absolute Neuts (auto) Neutrophils % Lymphocytes % Monocytes % Eosinophils % Basophils % Nucleated RBC % PT with INR INR PTT (Actin FS) Puncture Site ABG pH ABG pCO2 at Pt Temp ABG pO2 at Pt Temp ABG HCO3 ABG O2 Sat (Measured) ABG O2 Content ABG Base Excess Manjit Test VBG pH POC VBG pCO2 POC VBG pO2 VBG HCO3 VBG O2 Sat (Glenn) VBG Base Excess O2 Delivery Device Oxygen Flow Rate Sodium Potassium Chloride Carbon Dioxide Anion Gap BUN Creatinine Est GFR (CKD-EPI)AfAm Est GFR (CKD-EPI)NonAf Random Glucose Serum Osmolality Lactic Acid Calcium Phosphorus Magnesium Total Bilirubin AST ALT Alkaline Phosphatase LD Total Creatine Kinase 179 Creatine Kinase Index 1.6 CK-MB (CK-2) 3.0 Troponin I < 0.02 B-Natriuretic Peptide Total Protein Albumin Prostate Specific Ag Urine Color Urine Appearance Urine pH Ur Specific [place] Urine Protein Urine Glucose (UA) Urine Ketones Urine Blood Urine Nitrite Urine Bilirubin Urine Urobilinogen Ur Leukocyte Esterase Urine WBC (Auto) Urine RBC (Auto) Urine Casts (Auto) U Pathogenic Cast Auto U Epithel Cells (Auto) Urine Bacteria (Auto) Urine Osmolality Ur Random Sodium Fluid Source Rt pleural Fluid WBC 800 Fluid RBC 1841 Fluid Neutrophils 6 Fluid Lymphocytes 73 Fluid Chloride Cancelled Fluid Glucose 52 Fluid Total Protein 3.6 Fluid Albumin 2.2 Body Fluid LDH Source 412 Fluid Amylase 71 Fluid Cholesterol 53 Fluid Triglycerides 21 Pleural Monocytes 16 Pleural Eosinophils 5 Pleural Diff Comment 07/20/19 07/20/19 07/20/19 06:34 20:45 20:45 WBC 9.4 RBC 3.66 L Hgb 10.4 L Hct 31.4 L MCV 85.7 MCH 28.4 MCHC 33.2 RDW 16.7 H Plt Count 474 H MPV 7.3 L Absolute Neuts (auto) 8.4 H Neutrophils % 89.7 H Lymphocytes % 6.5 L D Monocytes % 3.6 L Eosinophils % 0.1 D Basophils % 0.1 Nucleated RBC % 0 PT with INR INR PTT (Actin FS) Puncture Site ABG pH ABG pCO2 at Pt Temp ABG pO2 at Pt Temp ABG HCO3 ABG O2 Sat (Measured) ABG O2 Content ABG Base Excess Manjit Test VBG pH POC VBG pCO2 POC VBG pO2 VBG HCO3 VBG O2 Sat (Glenn) VBG Base Excess O2 Delivery Device Oxygen Flow Rate Sodium 132 L 132 L Potassium 4.7 4.6 Chloride 95 L 96 L Carbon Dioxide 26 23 Anion Gap 10 13 BUN 32.5 H 35.8 H Creatinine 1.2 1.2 Est GFR (CKD-EPI)AfAm 71.08 71.08 Est GFR (CKD-EPI)NonAf 61.33 61.33 Random Glucose 100 143 H Serum Osmolality Lactic Acid Calcium 8.7 8.5 Phosphorus Magnesium Total Bilirubin 0.4 AST 33 ALT 27 Alkaline Phosphatase 159 H LD Total Creatine Kinase 185 Creatine Kinase Index 1.1 CK-MB (CK-2) 2.2 Troponin I < 0.02 B-Natriuretic Peptide Total Protein 6.2 L Albumin 2.2 L Prostate Specific Ag Urine Color Urine Appearance Urine pH Ur Specific [place] Urine Protein Urine Glucose (UA) Urine Ketones Urine Blood Urine Nitrite Urine Bilirubin Urine Urobilinogen Ur Leukocyte Esterase Urine WBC (Auto) Urine RBC (Auto) Urine Casts (Auto) U Pathogenic Cast Auto U Epithel Cells (Auto) Urine Bacteria (Auto) Urine Osmolality Ur Random Sodium Fluid Source Fluid WBC Fluid RBC Fluid Neutrophils Fluid Lymphocytes Fluid Chloride Fluid Glucose Fluid Total Protein Fluid Albumin Body Fluid LDH Source Fluid Amylase Fluid Cholesterol Fluid Triglycerides Pleural Monocytes Pleural Eosinophils Pleural Diff Comment 07/20/19 07/21/19 07/21/19 20:56 05:40 05:40 WBC 6.8 RBC 3.49 L Hgb 10.0 L Hct 29.6 L MCV 84.8 MCH 28.6 MCHC 33.7 RDW 16.6 H Plt Count 476 H MPV 7.3 L Absolute Neuts (auto) Neutrophils % Lymphocytes % Monocytes % Eosinophils % Basophils % Nucleated RBC % PT with INR INR PTT (Actin FS) Puncture Site Right radial ABG pH 7.43 ABG pCO2 at Pt Temp 34.0 L ABG pO2 at Pt Temp 52.6 L ABG HCO3 22.4 ABG O2 Sat (Measured) 86.6 L ABG O2 Content 12.6 ABG Base Excess -0.9 Manjit Test Positive VBG pH POC VBG pCO2 POC VBG pO2 VBG HCO3 VBG O2 Sat (Glenn) VBG Base Excess O2 Delivery Device N/c Oxygen Flow Rate 3l Sodium 131 L Potassium 4.5 Chloride 95 L Carbon Dioxide 24 Anion Gap 12 BUN 32.5 H Creatinine 1.1 Est GFR (CKD-EPI)AfAm 78.97 Est GFR (CKD-EPI)NonAf 68.13 Random Glucose 169 H Serum Osmolality Lactic Acid Calcium 8.3 L Phosphorus Magnesium Total Bilirubin AST ALT Alkaline Phosphatase LD Total Creatine Kinase Creatine Kinase Index CK-MB (CK-2) Troponin I B-Natriuretic Peptide Total Protein Albumin Prostate Specific Ag Urine Color Urine Appearance Urine pH Ur Specific [place] Urine Protein Urine Glucose (UA) Urine Ketones Urine Blood Urine Nitrite Urine Bilirubin Urine Urobilinogen Ur Leukocyte Esterase Urine WBC (Auto) Urine RBC (Auto) Urine Casts (Auto) U Pathogenic Cast Auto U Epithel Cells (Auto) Urine Bacteria (Auto) Urine Osmolality Ur Random Sodium Fluid Source Fluid WBC Fluid RBC Fluid Neutrophils Fluid Lymphocytes Fluid Chloride Fluid Glucose Fluid Total Protein Fluid Albumin Body Fluid LDH Source Fluid Amylase Fluid Cholesterol Fluid Triglycerides Pleural Monocytes Pleural Eosinophils Pleural Diff Comment 07/21/19 07/21/19 07/21/19 12:36 12:36 12:36 WBC RBC Hgb Hct MCV MCH MCHC RDW Plt Count MPV Absolute Neuts (auto) Neutrophils % Lymphocytes % Monocytes % Eosinophils % Basophils % Nucleated RBC % PT with INR INR PTT (Actin FS) Puncture Site ABG pH ABG pCO2 at Pt Temp ABG pO2 at Pt Temp ABG HCO3 ABG O2 Sat (Measured) ABG O2 Content ABG Base Excess Manjit Test VBG pH POC VBG pCO2 POC VBG pO2 VBG HCO3 VBG O2 Sat (Glenn) VBG Base Excess O2 Delivery Device Oxygen Flow Rate Sodium Potassium Chloride Carbon Dioxide Anion Gap BUN Creatinine Est GFR (CKD-EPI)AfAm Est GFR (CKD-EPI)NonAf Random Glucose Serum Osmolality Lactic Acid 5.6 H* Calcium Phosphorus Magnesium Total Bilirubin AST ALT Alkaline Phosphatase LD Total 235 Creatine Kinase Creatine Kinase Index CK-MB (CK-2) Troponin I B-Natriuretic Peptide Total Protein Albumin Prostate Specific Ag 19.00 H Urine Color Urine Appearance Urine pH Ur Specific [place] Urine Protein Urine Glucose (UA) Urine Ketones Urine Blood Urine Nitrite Urine Bilirubin Urine Urobilinogen Ur Leukocyte Esterase Urine WBC (Auto) Urine RBC (Auto) Urine Casts (Auto) U Pathogenic Cast Auto U Epithel Cells (Auto) Urine Bacteria (Auto) Urine Osmolality Ur Random Sodium Fluid Source Fluid WBC Fluid RBC Fluid Neutrophils Fluid Lymphocytes Fluid Chloride Fluid Glucose Fluid Total Protein Fluid Albumin Body Fluid LDH Source Fluid Amylase Fluid Cholesterol Fluid Triglycerides Pleural Monocytes Pleural Eosinophils Pleural Diff Comment 07/21/19 07/22/19 07/22/19 21:30 06:00 06:00 WBC RBC Hgb Hct MCV MCH MCHC RDW Plt Count MPV Absolute Neuts (auto) Neutrophils % Lymphocytes % Monocytes % Eosinophils % Basophils % Nucleated RBC % PT with INR INR PTT (Actin FS) Puncture Site ABG pH ABG pCO2 at Pt Temp ABG pO2 at Pt Temp ABG HCO3 ABG O2 Sat (Measured) ABG O2 Content ABG Base Excess Manjit Test VBG pH POC VBG pCO2 POC VBG pO2 VBG HCO3 VBG O2 Sat (Glenn) VBG Base Excess O2 Delivery Device Oxygen Flow Rate Sodium Potassium Chloride Carbon Dioxide Anion Gap BUN Creatinine Est GFR (CKD-EPI)AfAm Est GFR (CKD-EPI)NonAf Random Glucose Serum Osmolality Lactic Acid 5.0 H* Calcium Phosphorus Magnesium Total Bilirubin AST ALT Alkaline Phosphatase LD Total Creatine Kinase Creatine Kinase Index CK-MB (CK-2) Troponin I B-Natriuretic Peptide Total Protein Albumin Prostate Specific Ag Urine Color Urine Appearance Urine pH Ur Specific [place] Urine Protein Urine Glucose (UA) Urine Ketones Urine Blood Urine Nitrite Urine Bilirubin Urine Urobilinogen Ur Leukocyte Esterase Urine WBC (Auto) Urine RBC (Auto) Urine Casts (Auto) U Pathogenic Cast Auto U Epithel Cells (Auto) Urine Bacteria (Auto) Urine Osmolality 553 Ur Random Sodium 6 L Fluid Source Fluid WBC Fluid RBC Fluid Neutrophils Fluid Lymphocytes Fluid Chloride Fluid Glucose Fluid Total Protein Fluid Albumin Body Fluid LDH Source Fluid Amylase Fluid Cholesterol Fluid Triglycerides Pleural Monocytes Pleural Eosinophils Pleural Diff Comment 07/22/19 07/22/19 07/22/19 06:20 06:20 06:20 WBC 14.5 H RBC 3.43 L Hgb 9.8 L Hct 29.1 L MCV 85.0 MCH 28.6 MCHC 33.7 RDW 16.7 H Plt Count 535 H MPV 7.0 L Absolute Neuts (auto) 12.8 H Neutrophils % 87.8 H Lymphocytes % 4.7 L D Monocytes % 7.3 D Eosinophils % 0.0 D Basophils % 0.2 Nucleated RBC % 0 PT with INR INR PTT (Actin FS) Puncture Site ABG pH ABG pCO2 at Pt Temp ABG pO2 at Pt Temp ABG HCO3 ABG O2 Sat (Measured) ABG O2 Content ABG Base Excess Manjit Test VBG pH POC VBG pCO2 POC VBG pO2 VBG HCO3 VBG O2 Sat (Glenn) VBG Base Excess O2 Delivery Device Oxygen Flow Rate Sodium 133 L Potassium 4.7 Chloride 99 Carbon Dioxide 25 Anion Gap 10 BUN 31.7 H Creatinine 1.1 Est GFR (CKD-EPI)AfAm 78.97 Est GFR (CKD-EPI)NonAf 68.13 Random Glucose 140 H Serum Osmolality 294 Lactic Acid Calcium 8.3 L Phosphorus 4.8 Magnesium 2.7 H Total Bilirubin 0.3 AST 31 ALT 28 Alkaline Phosphatase 174 H LD Total Creatine Kinase Creatine Kinase Index CK-MB (CK-2) Troponin I B-Natriuretic Peptide Total Protein 5.9 L Albumin 2.1 L Prostate Specific Ag Urine Color Urine Appearance Urine pH Ur Specific [place] Urine Protein Urine Glucose (UA) Urine Ketones Urine Blood Urine Nitrite Urine Bilirubin Urine Urobilinogen Ur Leukocyte Esterase Urine WBC (Auto) Urine RBC (Auto) Urine Casts (Auto) U Pathogenic Cast Auto U Epithel Cells (Auto) Urine Bacteria (Auto) Urine Osmolality Ur Random Sodium Fluid Source Fluid WBC Fluid RBC Fluid Neutrophils Fluid Lymphocytes Fluid Chloride Fluid Glucose Fluid Total Protein Fluid Albumin Body Fluid LDH Source Fluid Amylase Fluid Cholesterol Fluid Triglycerides Pleural Monocytes Pleural Eosinophils Pleural Diff Comment 07/22/19 07/22/19 07/23/19 10:05 14:00 06:05 WBC 13.0 H RBC 3.71 L Hgb 10.6 L Hct 31.7 L MCV 85.5 MCH 28.7 MCHC 33.5 RDW 16.9 H Plt Count 624 H MPV 7.1 L Absolute Neuts (auto) 11.5 H Neutrophils % 88.5 H Lymphocytes % 3.5 L D Monocytes % 7.9 Eosinophils % 0.0 Basophils % 0.1 Nucleated RBC % 0 PT with INR INR PTT (Actin FS) Puncture Site ABG pH ABG pCO2 at Pt Temp ABG pO2 at Pt Temp ABG HCO3 ABG O2 Sat (Measured) ABG O2 Content ABG Base Excess Manjit Test VBG pH POC VBG pCO2 POC VBG pO2 VBG HCO3 VBG O2 Sat (Glenn) VBG Base Excess O2 Delivery Device Oxygen Flow Rate Sodium Potassium Chloride Carbon Dioxide Anion Gap BUN Creatinine Est GFR (CKD-EPI)AfAm Est GFR (CKD-EPI)NonAf Random Glucose Serum Osmolality Lactic Acid 4.0 H* 1.0 Calcium Phosphorus Magnesium Total Bilirubin AST ALT Alkaline Phosphatase LD Total Creatine Kinase Creatine Kinase Index CK-MB (CK-2) Troponin I B-Natriuretic Peptide Total Protein Albumin Prostate Specific Ag Urine Color Urine Appearance Urine pH Ur Specific [place] Urine Protein Urine Glucose (UA) Urine Ketones Urine Blood Urine Nitrite Urine Bilirubin Urine Urobilinogen Ur Leukocyte Esterase Urine WBC (Auto) Urine RBC (Auto) Urine Casts (Auto) U Pathogenic Cast Auto U Epithel Cells (Auto) Urine Bacteria (Auto) Urine Osmolality Ur Random Sodium Fluid Source Fluid WBC Fluid RBC Fluid Neutrophils Fluid Lymphocytes Fluid Chloride Fluid Glucose Fluid Total Protein Fluid Albumin Body Fluid LDH Source Fluid Amylase Fluid Cholesterol Fluid Triglycerides Pleural Monocytes Pleural Eosinophils Pleural Diff Comment 07/23/19 07/24/19 07/24/19 06:05 05:43 05:43 WBC 12.8 H RBC 3.85 L Hgb 11.0 L Hct 33.1 L MCV 86.0 MCH 28.5 MCHC 33.1 RDW 16.9 H Plt Count 595 H MPV 7.0 L Absolute Neuts (auto) 10.8 H Neutrophils % 84.9 H Lymphocytes % 5.3 L D Monocytes % 9.4 Eosinophils % 0.1 D Basophils % 0.3 Nucleated RBC % 0 PT with INR INR PTT (Actin FS) Puncture Site ABG pH ABG pCO2 at Pt Temp ABG pO2 at Pt Temp ABG HCO3 ABG O2 Sat (Measured) ABG O2 Content ABG Base Excess Manjit Test VBG pH POC VBG pCO2 POC VBG pO2 VBG HCO3 VBG O2 Sat (Glenn) VBG Base Excess O2 Delivery Device Oxygen Flow Rate Sodium 139 138 Potassium 5.1 4.8 Chloride 102 102 Carbon Dioxide 26 28 Anion Gap 11 8 BUN 27.2 H 21.6 H Creatinine 1.1 1.0 Est GFR (CKD-EPI)AfAm 78.97 88.61 Est GFR (CKD-EPI)NonAf 68.13 76.45 Random Glucose 110 H 94 Serum Osmolality Lactic Acid Calcium 8.5 8.3 L Phosphorus Magnesium Total Bilirubin 0.3 AST 33 ALT 32 Alkaline Phosphatase 194 H LD Total Creatine Kinase Creatine Kinase Index CK-MB (CK-2) Troponin I B-Natriuretic Peptide Total Protein 6.2 L Albumin 2.3 L Prostate Specific Ag Urine Color Urine Appearance Urine pH Ur Specific [place] Urine Protein Urine Glucose (UA) Urine Ketones Urine Blood Urine Nitrite Urine Bilirubin Urine Urobilinogen Ur Leukocyte Esterase Urine WBC (Auto) Urine RBC (Auto) Urine Casts (Auto) U Pathogenic Cast Auto U Epithel Cells (Auto) Urine Bacteria (Auto) Urine Osmolality Ur Random Sodium Fluid Source Fluid WBC Fluid RBC Fluid Neutrophils Fluid Lymphocytes Fluid Chloride Fluid Glucose Fluid Total Protein Fluid Albumin Body Fluid LDH Source Fluid Amylase Fluid Cholesterol Fluid Triglycerides Pleural Monocytes Pleural Eosinophils Pleural Diff Comment 07/30/19 07/30/19 08:32 08:32 WBC 14.1 H RBC 4.00 Hgb 11.4 L Hct 35.2 L MCV 87.9 MCH 28.4 MCHC 32.4 RDW 18.2 H Plt Count 439 H MPV 7.2 L Absolute Neuts (auto) 12.2 H Neutrophils % 87.0 H Lymphocytes % 4.6 L Monocytes % 8.0 Eosinophils % 0.0 D Basophils % 0.4 Nucleated RBC % 0 PT with INR INR PTT (Actin FS) Puncture Site ABG pH ABG pCO2 at Pt Temp ABG pO2 at Pt Temp ABG HCO3 ABG O2 Sat (Measured) ABG O2 Content ABG Base Excess Manjit Test VBG pH POC VBG pCO2 POC VBG pO2 VBG HCO3 VBG O2 Sat (Glenn) VBG Base Excess O2 Delivery Device Oxygen Flow Rate Sodium 137 Potassium 5.1 Chloride 98 Carbon Dioxide 26 Anion Gap 12 BUN 33.1 H Creatinine 1.1 Est GFR (CKD-EPI)AfAm 78.97 Est GFR (CKD-EPI)NonAf 68.13 Random Glucose 142 H Serum Osmolality Lactic Acid Calcium 8.8 Phosphorus Magnesium Total Bilirubin AST ALT Alkaline Phosphatase LD Total Creatine Kinase Creatine Kinase Index CK-MB (CK-2) Troponin I B-Natriuretic Peptide Total Protein Albumin Prostate Specific Ag Urine Color Urine Appearance Urine pH Ur Specific [place] Urine Protein Urine Glucose (UA) Urine Ketones Urine Blood Urine Nitrite Urine Bilirubin Urine Urobilinogen Ur Leukocyte Esterase Urine WBC (Auto) Urine RBC (Auto) Urine Casts (Auto) U Pathogenic Cast Auto U Epithel Cells (Auto) Urine Bacteria (Auto) Urine Osmolality Ur Random Sodium Fluid Source Fluid WBC Fluid RBC Fluid Neutrophils Fluid Lymphocytes Fluid Chloride Fluid Glucose Fluid Total Protein Fluid Albumin Body Fluid LDH Source Fluid Amylase Fluid Cholesterol Fluid Triglycerides Pleural Monocytes Pleural Eosinophils Pleural Diff Comment Problem List - Problems (1) Lung mass Code(s): R91.8 - OTHER NONSPECIFIC ABNORMAL FINDING OF LUNG FIELD (2) Malignancy Code(s): C80.1 - MALIGNANT (PRIMARY) NEOPLASM, UNSPECIFIED (3) Respiratory distress Code(s): R06.03 - ACUTE RESPIRATORY DISTRESS (4) Obesity Code(s): E66.9 - OBESITY, UNSPECIFIED (5) Hyponatremia Code(s): E87.1 - HYPO-OSMOLALITY AND HYPONATREMIA Assessment/Plan Progressive Lung Cancer - [place] ca Pleural Effusion malignant r/o SVC syndrome Hyponatremia Lactic Acidosis PAF Hyperlipidemia Anemia Pulmonary HTN - inhaled bronchodilators - rate control - DVT prophylaxis - O2 - inhaled bronchodilators - For possible RT Thursday Dr Granado
--- NOTE | 2019-07-30 19:40 | PN ---
Progress Note, Physician History of Present Illness: Pt is resting, arousable. No current SOB/CP. Remains afebrile, without current distress. - Current Medication List Current Medications: Active Medications Acetaminophen (Tylenol -) 650 mg PO Q4H PRN PRN Reason: TEMP >100.4 Last Admin: 07/27/19 09:31 Dose: 650 mg Albuterol Sulfate (Ventolin 0.083% Nebulizer Soln -) 1 amp NEB Q4H PRN PRN Reason: SHORT OF BREATH/WHEEZING Last Admin: 07/29/19 22:45 Dose: 1 amp Albuterol Sulfate (Ventolin Hfa Inhaler -) 2 puff IH Q6H PRN PRN Reason: SHORTNESS OF BREATH Albuterol/Ipratropium (Duoneb -) 1 amp NEB RQID [facility] Last Admin: 07/30/19 16:23 Dose: 1 amp Alprazolam (Xanax -) 0.5 mg PO Q8H PRN PRN Reason: ANXIETY Last Admin: 07/30/19 14:12 Dose: 0.5 mg Amoxicillin/Clavulanate Potassium (Augmentin - 875mg Tablet) 1 tab PO BID@0800, 1730 [facility] Last Admin: 07/30/19 18:38 Dose: 1 tab Folic Acid (Folic Acid -) 1 mg PO DAILY [facility] Last Admin: 07/30/19 09:43 Dose: 1 mg Heparin Sodium (Porcine) (Heparin -) 5,000 unit SQ TID [facility] Last Admin: 07/30/19 14:09 Dose: 5,000 unit Methylprednisolone Sodium Succinate (Solu-Medrol -) 40 mg IVPUSH Q8H-IV [facility] Last Admin: 07/30/19 18:37 Dose: 40 mg Metoprolol Succinate (Toprol Xl -) 50 mg PO DAILY [facility] Last Admin: 07/30/19 09:44 Dose: 50 mg Nystatin (Nystatin Oral Suspension -) 500,000 units PO BID [facility] Last Admin: 07/30/19 09:44 Dose: 500,000 units Pantoprazole Sodium (Protonix -) 40 mg PO DAILY [facility] Last Admin: 07/30/19 09:44 Dose: 40 mg Phenytoin Sodium (Dilantin -) 200 mg PO BID [facility] Last Admin: 07/30/19 09:43 Dose: 200 mg Polyethylene Glycol (Miralax (For Daily Use) -) 17 gm PO DAILY [facility] Last Admin: 07/30/19 09:45 Dose: Not Given Promethazine HCl (Phenergan -) 12.5 mg PO Q6H PRN PRN Reason: NAUSEA AND/OR VOMITING Last Admin: 07/28/19 08:56 Dose: 12.5 mg Rosuvastatin Calcium (Crestor -) 20 mg PO HS [facility] Last Admin: 07/29/19 21:58 Dose: 20 mg Tamsulosin HCl (Flomax -) 0.4 mg PO DAILY@0830 [facility] Last Admin: 07/30/19 09:44 Dose: 0.4 mg - Objective Vital Signs: Vital Signs Temperature 98.1 F 07/30/19 18:00 Pulse Rate 85 07/30/19 18:00 Respiratory Rate 22 H 07/30/19 18:00 Blood Pressure 122/59 L 07/30/19 18:00 O2 Sat by Pulse Oximetry (%) 92 L 07/30/19 09:00 Constitutional: Yes: No Distress Cardiovascular: Yes: Regular Rate and Rhythm Respiratory: Yes: On Nasal O2 Gastrointestinal: Yes: Normal Bowel Sounds, Soft Genitourinary: Yes: WNL Extremities: Yes: WNL Integumentary: Yes: WNL Labs: CBC, BMP 07/30/19 08:32 07/30/19 08:32 INR, PTT INR 1.19 (0.83-1.09) H 07/16/19 13:45 Microbiology 07/16/19 13:45 Blood - Peripheral Venous Blood Culture - Final NO GROWTH AFTER 5 DAYS INCUBATION 07/16/19 13:45 Blood - Peripheral Venous Blood Culture - Final NO GROWTH AFTER 5 DAYS INCUBATION 07/19/19 10:45 Pleural Fluid Gram Stain - Final 07/19/19 10:45 Pleural Fluid Body Fluid Culture - Final NO GROWTH OF AEROBIC ORGANISMS AFTER 48 HOURS INCUBATION 07/19/19 10:45 Pleural Fluid Anaerobic Culture - Final NO ANAEROBES WERE ISOLATED 07/19/19 10:45 Pleural Fluid AFB Smear Concentration - Final 07/19/19 10:45 Pleural Fluid Mycobacterial Culture - Preliminary 07/19/19 10:45 Pleural Fluid TINY Preparation - Preliminary 07/19/19 10:45 Pleural Fluid Fungal Culture - Preliminary 07/16/19 14:45 Urine - Urine Clean Catch Urine Culture - Final - ....Imaging Chest X-ray: Report Reviewed Problem List - Problems (1) Lung mass Code(s): R91.8 - OTHER NONSPECIFIC ABNORMAL FINDING OF LUNG FIELD (2) Malignancy Code(s): C80.1 - MALIGNANT (PRIMARY) NEOPLASM, UNSPECIFIED Assessment/Plan 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
[2019-07-30] MEDS: ROSUVASTATIN CA 20 MG TABLET (FP) PO SCH (21:53)
[2019-07-31] MEDS: methylPREDNISolone NA SUCC 40 MG/1 ML VIAL IVPUSH SCH ×3 (01:50→17:43)
--- NOTE | 2019-07-31 01:55 | RAPID ---
Physical Examination Vital Signs: Vital Signs Temperature 97.9 F 07/30/19 22:00 Pulse Rate 95 H 07/30/19 22:00 Respiratory Rate 22 H 07/30/19 22:00 Blood Pressure 137/117 H 07/30/19 22:00 O2 Sat by Pulse Oximetry (%) 92 L 07/30/19 21:00 Labs: CBC, BMP 07/30/19 08:32 07/30/19 08:32 Rapid Response - Rapid Response Assessment: S Rapid response called at 0141. varnisher team quickly responded. Upon arrival, nurse at bedside reported the patient was unable to be woken. He was previously anxious and was given his Xanax dose 0.5mg. Pt was confirmed DNR/DNI. Pt's son at bedside. O 120/53 HR 82 RR 12 95% BG 137 difficult to arouse, no response to sternal rub pupils equal and reactive to light RRR lungs clear to auscultation bilaterally abdomen soft, non-distended pitting edema in all 4 extremities A/P #somnolence -ABG- pH 7.05, CO2 >100, PO2 103, O2 sat 94.2 -EKG -CXR -BiPAP placed after ABG results
[2019-07-31 02:04] LABS: ARTERIAL BLD GAS O2 SATURATION 94.2 % (95-98)
[2019-07-31 02:07] LABS: ARTERIAL BLOOD GAS PO2 103 mmHg (80-100)
[2019-07-31 02:08] LABS: ALLENS TEST POSITIVE
[2019-07-31 02:11] LABS: ARTERIAL BLOOD GAS PCO2 > 100 mmHg (35-45); ARTERIAL BLOOD GAS pH 7.05 (7.35-7.45)
--- NOTE | 2019-07-31 04:23 | PN ---
Progress Note, Physician History of Present Illness: called by nurse pt was found unresponsive at 130 am post xanxa s for extreme anxiety agitation resp team came to evaluate pt and cxr done stat o2 100 applied son bt side of pt blood gas showed on 02 100% resp acidosis note states pupils rx ? at that time nonverbal pain stinuli not resposive with me on arrival pupil fixed ? sed to ? xanax? vs clasco coma 3 - Current Medication List Current Medications: Active Medications Acetaminophen (Tylenol -) 650 mg PO Q4H PRN PRN Reason: TEMP >100.4 Last Admin: 07/27/19 09:31 Dose: 650 mg Albuterol Sulfate (Ventolin Hfa Inhaler -) 2 puff IH Q6H PRN PRN Reason: SHORTNESS OF BREATH Albuterol/Ipratropium (Duoneb -) 1 amp NEB RQID [facility] Last Admin: 07/30/19 20:30 Dose: 1 amp Alprazolam (Xanax -) 0.5 mg PO Q8H PRN PRN Reason: ANXIETY Last Admin: 07/30/19 21:52 Dose: 0.5 mg Amoxicillin/Clavulanate Potassium (Augmentin - 875mg Tablet) 1 tab PO BID@0800, 1730 [facility] Last Admin: 07/30/19 18:38 Dose: 1 tab Folic Acid (Folic Acid -) 1 mg PO DAILY [facility] Last Admin: 07/30/19 09:43 Dose: 1 mg Heparin Sodium (Porcine) (Heparin -) 5,000 unit SQ TID [facility] Last Admin: 07/30/19 21:53 Dose: 5,000 unit Methylprednisolone Sodium Succinate (Solu-Medrol -) 40 mg IVPUSH Q8H-IV [facility] Last Admin: 07/31/19 01:50 Dose: 40 mg Metoprolol Succinate (Toprol Xl -) 50 mg PO DAILY [facility] Last Admin: 07/30/19 09:44 Dose: 50 mg Nystatin (Nystatin Oral Suspension -) 500,000 units PO BID [facility] Last Admin: 07/30/19 21:52 Dose: 500,000 units Pantoprazole Sodium (Protonix -) 40 mg PO DAILY [facility] Last Admin: 07/30/19 09:44 Dose: 40 mg Phenytoin Sodium (Dilantin -) 200 mg PO BID [facility] Last Admin: 07/30/19 21:53 Dose: 200 mg Polyethylene Glycol (Miralax (For Daily Use) -) 17 gm PO DAILY [facility] Last Admin: 07/30/19 09:45 Dose: Not Given Promethazine HCl (Phenergan -) 12.5 mg PO Q6H PRN PRN Reason: NAUSEA AND/OR VOMITING Last Admin: 07/28/19 08:56 Dose: 12.5 mg Rosuvastatin Calcium (Crestor -) 20 mg PO HS [facility] Last Admin: 07/30/19 21:53 Dose: 20 mg Tamsulosin HCl (Flomax -) 0.4 mg PO DAILY@0830 [facility] Last Admin: 07/30/19 09:44 Dose: 0.4 mg - Objective Vital Signs: Vital Signs Temperature 98.2 F 07/31/19 01:45 Pulse Rate 82 07/31/19 03:35 Respiratory Rate 16 07/31/19 03:35 Blood Pressure 100/50 L 07/31/19 03:35 O2 Sat by Pulse Oximetry (%) 93 L 07/31/19 02:30 Constitutional: Yes: Other (in comatose state) Eyes: Yes: Other (fixed not reactive to lght) HENT: Yes: Other (no movment) Respiratory: Yes: On BiPap ...Rectal Exam: Yes: Deferred Breast(s): Yes: Other (no rx to pain nipples) Edema: Yes Edema: LUE: 1+, RUE: 1+, LLE: 3+, RLE: 3+ Peripheral Pulses WNL: Yes Integumentary: Yes: Other (edematous exts) Wound/Incision: Yes: Clean/Dry Neurological: Yes: Babinski negative (babinski neither fans up nor down), Loss of Sensation Labs: CBC, BMP 07/30/19 08:32 07/30/19 08:32 INR, PTT INR 1.19 (0.83-1.09) H 07/16/19 13:45 Assessment/Plan pt now in comatose state denae 3 on o2 100% none verbal no respone to vig stimuli pupils fixed non rx nonverbal son by side spoke to regarding poor prognosis awhere of condition not want heroic measures pt drr dni cxrpnd results foly cath placed comfort care cont all tx as is 02 ect pain control if any? keep bed up not down came in 430 am just when rn called me re[eat blood gases on 02 100%
[2019-07-31 04:45] LABS: ARTERIAL BLD GAS O2 SATURATION 95.7 % (95-98); ARTERIAL BLOOD GAS BASE EXCESS -1.4 meq/l (-2-2); ARTERIAL BLOOD GAS PCO2 60.4 mmHg (35-45); ARTERIAL BLOOD GAS PO2 87.2 mmHg (80-100); ARTERIAL BLOOD GAS pH 7.26 (7.35-7.45)
[2019-07-31 04:51] LABS: ALLENS TEST POSITIVE
--- NOTE | 2019-07-31 04:58 | PN ---
Progress Note, Physician History of Present Illness: pt now combative pulling off mask o2 moving all exremities pupil still fixed / sed xanex? babinskis neg nonverbal not responsive to pain stimuli abg reapeated foly placed comfort care son buy side of farther wrist restraints applied - Current Medication List Current Medications: Active Medications Acetaminophen (Tylenol -) 650 mg PO Q4H PRN PRN Reason: TEMP >100.4 Last Admin: 07/27/19 09:31 Dose: 650 mg Albuterol Sulfate (Ventolin Hfa Inhaler -) 2 puff IH Q6H PRN PRN Reason: SHORTNESS OF BREATH Albuterol/Ipratropium (Duoneb -) 1 amp NEB RQID [facility] Last Admin: 07/30/19 20:30 Dose: 1 amp Alprazolam (Xanax -) 0.5 mg PO Q8H PRN PRN Reason: ANXIETY Last Admin: 07/30/19 21:52 Dose: 0.5 mg Amoxicillin/Clavulanate Potassium (Augmentin - 875mg Tablet) 1 tab PO BID@0800, 1730 [facility] Last Admin: 07/30/19 18:38 Dose: 1 tab Folic Acid (Folic Acid -) 1 mg PO DAILY [facility] Last Admin: 07/30/19 09:43 Dose: 1 mg Heparin Sodium (Porcine) (Heparin -) 5,000 unit SQ TID [facility] Last Admin: 07/30/19 21:53 Dose: 5,000 unit Methylprednisolone Sodium Succinate (Solu-Medrol -) 40 mg IVPUSH Q8H-IV [facility] Last Admin: 07/31/19 01:50 Dose: 40 mg Metoprolol Succinate (Toprol Xl -) 50 mg PO DAILY [facility] Last Admin: 07/30/19 09:44 Dose: 50 mg Nystatin (Nystatin Oral Suspension -) 500,000 units PO BID [facility] Last Admin: 07/30/19 21:52 Dose: 500,000 units Pantoprazole Sodium (Protonix -) 40 mg PO DAILY [facility] Last Admin: 07/30/19 09:44 Dose: 40 mg Phenytoin Sodium (Dilantin -) 200 mg PO BID [facility] Last Admin: 07/30/19 21:53 Dose: 200 mg Polyethylene Glycol (Miralax (For Daily Use) -) 17 gm PO DAILY [facility] Last Admin: 07/30/19 09:45 Dose: Not Given Promethazine HCl (Phenergan -) 12.5 mg PO Q6H PRN PRN Reason: NAUSEA AND/OR VOMITING Last Admin: 07/28/19 08:56 Dose: 12.5 mg Rosuvastatin Calcium (Crestor -) 20 mg PO HS [facility] Last Admin: 07/30/19 21:53 Dose: 20 mg Tamsulosin HCl (Flomax -) 0.4 mg PO DAILY@0830 [facility] Last Admin: 07/30/19 09:44 Dose: 0.4 mg - Objective Vital Signs: Vital Signs Temperature 98.2 F 07/31/19 01:45 Pulse Rate 82 07/31/19 03:35 Respiratory Rate 16 07/31/19 03:35 Blood Pressure 100/50 L 07/31/19 03:35 O2 Sat by Pulse Oximetry (%) 93 L 07/31/19 02:30 Labs: CBC, BMP 07/30/19 08:32 07/30/19 08:32 INR, PTT INR 1.19 (0.83-1.09) H 07/16/19 13:45
--- NOTE | 2019-07-31 05:20 | PN ---
Progress Note, Physician - Current Medication List Current Medications: Active Medications Acetaminophen (Tylenol -) 650 mg PO Q4H PRN PRN Reason: TEMP >100.4 Last Admin: 07/27/19 09:31 Dose: 650 mg Albuterol Sulfate (Ventolin Hfa Inhaler -) 2 puff IH Q6H PRN PRN Reason: SHORTNESS OF BREATH Albuterol/Ipratropium (Duoneb -) 1 amp NEB RQID [facility] Last Admin: 07/30/19 20:30 Dose: 1 amp Alprazolam (Xanax -) 0.5 mg PO Q8H PRN PRN Reason: ANXIETY Last Admin: 07/30/19 21:52 Dose: 0.5 mg Amoxicillin/Clavulanate Potassium (Augmentin - 875mg Tablet) 1 tab PO BID@0800, 1730 [facility] Last Admin: 07/30/19 18:38 Dose: 1 tab Folic Acid (Folic Acid -) 1 mg PO DAILY [facility] Last Admin: 07/30/19 09:43 Dose: 1 mg Heparin Sodium (Porcine) (Heparin -) 5,000 unit SQ TID [facility] Last Admin: 07/30/19 21:53 Dose: 5,000 unit Methylprednisolone Sodium Succinate (Solu-Medrol -) 40 mg IVPUSH Q8H-IV [facility] Last Admin: 07/31/19 01:50 Dose: 40 mg Metoprolol Succinate (Toprol Xl -) 50 mg PO DAILY [facility] Last Admin: 07/30/19 09:44 Dose: 50 mg Nystatin (Nystatin Oral Suspension -) 500,000 units PO BID [facility] Last Admin: 07/30/19 21:52 Dose: 500,000 units Pantoprazole Sodium (Protonix -) 40 mg PO DAILY [facility] Last Admin: 07/30/19 09:44 Dose: 40 mg Phenytoin Sodium (Dilantin -) 200 mg PO BID [facility] Last Admin: 07/30/19 21:53 Dose: 200 mg Polyethylene Glycol (Miralax (For Daily Use) -) 17 gm PO DAILY [facility] Last Admin: 07/30/19 09:45 Dose: Not Given Promethazine HCl (Phenergan -) 12.5 mg PO Q6H PRN PRN Reason: NAUSEA AND/OR VOMITING Last Admin: 07/28/19 08:56 Dose: 12.5 mg Rosuvastatin Calcium (Crestor -) 20 mg PO HS [facility] Last Admin: 07/30/19 21:53 Dose: 20 mg Tamsulosin HCl (Flomax -) 0.4 mg PO DAILY@0830 [facility] Last Admin: 07/30/19 09:44 Dose: 0.4 mg - Objective Vital Signs: Vital Signs Temperature 98.2 F 07/31/19 01:45 Pulse Rate 80 07/31/19 04:56 Respiratory Rate 16 07/31/19 04:56 Blood Pressure 112/58 L 07/31/19 04:56 O2 Sat by Pulse Oximetry (%) 93 L 07/31/19 02:30 Labs: CBC, BMP 07/30/19 08:32 07/30/19 08:32 INR, PTT INR 1.19 (0.83-1.09) H 07/16/19 13:45 Assessment/Plan cxr i read comp down for resuls but shows rt side pleural eff occupying total lung neuro pulm f/uy
--- NOTE | 2019-07-31 05:56 | PN ---
Progress Note, Physician - Current Medication List Current Medications: Active Medications Acetaminophen (Tylenol -) 650 mg PO Q4H PRN PRN Reason: TEMP >100.4 Last Admin: 07/27/19 09:31 Dose: 650 mg Albuterol Sulfate (Ventolin Hfa Inhaler -) 2 puff IH Q6H PRN PRN Reason: SHORTNESS OF BREATH Albuterol/Ipratropium (Duoneb -) 1 amp NEB RQID [facility] Last Admin: 07/30/19 20:30 Dose: 1 amp Alprazolam (Xanax -) 0.5 mg PO Q8H PRN PRN Reason: ANXIETY Last Admin: 07/30/19 21:52 Dose: 0.5 mg Amoxicillin/Clavulanate Potassium (Augmentin - 875mg Tablet) 1 tab PO BID@0800, 1730 [facility] Last Admin: 07/30/19 18:38 Dose: 1 tab Folic Acid (Folic Acid -) 1 mg PO DAILY [facility] Last Admin: 07/30/19 09:43 Dose: 1 mg Heparin Sodium (Porcine) (Heparin -) 5,000 unit SQ TID [facility] Last Admin: 07/30/19 21:53 Dose: 5,000 unit Methylprednisolone Sodium Succinate (Solu-Medrol -) 40 mg IVPUSH Q8H-IV [facility] Last Admin: 07/31/19 01:50 Dose: 40 mg Metoprolol Succinate (Toprol Xl -) 50 mg PO DAILY [facility] Last Admin: 07/30/19 09:44 Dose: 50 mg Nystatin (Nystatin Oral Suspension -) 500,000 units PO BID [facility] Last Admin: 07/30/19 21:52 Dose: 500,000 units Pantoprazole Sodium (Protonix -) 40 mg PO DAILY [facility] Last Admin: 07/30/19 09:44 Dose: 40 mg Phenytoin Sodium (Dilantin -) 200 mg PO BID [facility] Last Admin: 07/30/19 21:53 Dose: 200 mg Polyethylene Glycol (Miralax (For Daily Use) -) 17 gm PO DAILY [facility] Last Admin: 07/30/19 09:45 Dose: Not Given Promethazine HCl (Phenergan -) 12.5 mg PO Q6H PRN PRN Reason: NAUSEA AND/OR VOMITING Last Admin: 07/28/19 08:56 Dose: 12.5 mg Rosuvastatin Calcium (Crestor -) 20 mg PO HS [facility] Last Admin: 07/30/19 21:53 Dose: 20 mg Tamsulosin HCl (Flomax -) 0.4 mg PO DAILY@0830 [facility] Last Admin: 07/30/19 09:44 Dose: 0.4 mg - Objective Vital Signs: Vital Signs Temperature 98.2 F 07/31/19 01:45 Pulse Rate 80 07/31/19 04:56 Respiratory Rate 16 07/31/19 04:56 Blood Pressure 112/58 L 07/31/19 04:56 O2 Sat by Pulse Oximetry (%) 93 L 07/31/19 02:30 Labs: CBC, BMP 07/30/19 08:32 07/30/19 08:32 INR, PTT INR 1.19 (0.83-1.09) H 07/16/19 13:45 Assessment/Plan must think of co2 narcosis may have to increase ipap/epap ratio to help blow off co2.
[2019-07-31] MEDS: HEPARIN NA (PORCINE) 5,000 UNITS/ML 1ML VIAL SQ SCH ×3 (07:11→22:55)
[2019-07-31 09:30] LABS: HYALINE CASTS 22 /lpf (0-8); URINE APPEARANCE TURBID; URINE BILIRUBIN NEGATIVE (NEGATIVE); URINE COLOR YELLOW; URINE GLUCOSE (UA) NEGATIVE (NEGATIVE); URINE KETONE NEGATIVE (NEGATIVE); URINE LEUK ESTERASE 1+ (NEGATIVE); URINE NITRITE NEGATIVE (NEGATIVE); URINE PROTEIN 2+ (NEGATIVE); URINE RBC 294 /hpf (0-4); URINE WBC 12 /hpf (0-5)
[2019-07-31] MEDS: TAMSULOSIN HCL 0.4 MG CAP PO SCH (09:47)
[2019-07-31] MEDS: AMOX TR/POT CLAV 875MG/125MG TABLETS (FP) PO SCH ×2 (09:47→17:20)
[2019-07-31] MEDS: PHENYTOIN NA EXTENDED 100 MG CAPSULE (FP) PO SCH ×2 (09:48→22:42)
[2019-07-31] MEDS: POLYETHYLENE GLYCOL 3350 119 GM BTL PO SCH (09:49)
[2019-07-31] MEDS: FOLIC ACID 1 MG TABLET (FP) PO SCH (09:49)
[2019-07-31] MEDS: PANTOPRAZOLE 40 MG TABLET (FP) PO SCH (09:50)
[2019-07-31] MEDS: NYSTATIN 500,000 UNITS/5 ML SUSPENSION PO SCH ×2 (09:50→22:42)
--- NOTE | 2019-07-31 13:08 | PN ---
Progress Note (short form) - Note Progress Note: Tachypneic in bed on NIPPV support. Awake and responsive. Family at the bedside. CXR: Increased effusion on the right. Intake & Output 07/28/19 07/29/19 07/30/19 07/31/19 23:59 23:59 23:59 23:59 Intake Total 270 100 500 Output Total 300 100 Balance 270 100 200 -100 Weight 193 lb 9.6 oz Last Vital Signs Temp Pulse Resp BP Pulse Ox 98.5 F 84 17 107/60 96 07/31/19 10:00 07/31/19 10:00 07/31/19 10:00 07/31/19 10:00 07/31/19 12:10 Active Medications Acetaminophen (Tylenol -) 650 mg PO Q4H PRN PRN Reason: TEMP >100.4 Last Admin: 07/27/19 09:31 Dose: 650 mg Albuterol Sulfate (Ventolin Hfa Inhaler -) 2 puff IH Q6H PRN PRN Reason: SHORTNESS OF BREATH Alprazolam (Xanax -) 0.5 mg PO Q8H PRN PRN Reason: ANXIETY Last Admin: 07/30/19 21:52 Dose: 0.5 mg Amoxicillin/Clavulanate Potassium (Augmentin - 875mg Tablet) 1 tab PO BID@0800, 1730 [facility] Last Admin: 07/31/19 09:47 Dose: Not Given Folic Acid (Folic Acid -) 1 mg PO DAILY [facility] Last Admin: 07/31/19 09:49 Dose: Not Given Heparin Sodium (Porcine) (Heparin -) 5,000 unit SQ TID [facility] Last Admin: 07/31/19 07:11 Dose: 5,000 unit Methylprednisolone Sodium Succinate (Solu-Medrol -) 40 mg IVPUSH Q8H-IV [facility] Last Admin: 07/31/19 10:15 Dose: 40 mg Metoprolol Succinate (Toprol Xl -) 50 mg PO DAILY [facility] Last Admin: 07/31/19 09:50 Dose: Not Given Nystatin (Nystatin Oral Suspension -) 500,000 units PO BID [facility] Last Admin: 07/31/19 09:50 Dose: Not Given Pantoprazole Sodium (Protonix -) 40 mg PO DAILY [facility] Last Admin: 07/31/19 09:50 Dose: Not Given Phenytoin Sodium (Dilantin -) 200 mg PO BID [facility] Last Admin: 07/31/19 09:48 Dose: Not Given Polyethylene Glycol (Miralax (For Daily Use) -) 17 gm PO DAILY [facility] Last Admin: 07/31/19 09:49 Dose: Not Given Promethazine HCl (Phenergan -) 12.5 mg PO Q6H PRN PRN Reason: NAUSEA AND/OR VOMITING Last Admin: 07/28/19 08:56 Dose: 12.5 mg Rosuvastatin Calcium (Crestor -) 20 mg PO HS [facility] Last Admin: 07/30/19 21:53 Dose: 20 mg Tamsulosin HCl (Flomax -) 0.4 mg PO DAILY@0830 [facility] Last Admin: 07/31/19 09:47 Dose: Not Given Constitutional: Yes: Awake and alert, mildly tachypneic at rest Eyes: Yes: WNL HENT: Yes: WNL Neck: Yes: WNL Cardiovascular: Yes: Regular Rate and Rhythm, S1, S2 Respiratory: Yes: Diminished on the right, scattered bilateral Rhonchi Gastrointestinal: Yes: Normal Bowel Sounds, Soft Extremities: Yes: WNL Edema: Yes Labs: Laboratory Results - last 24 hr 07/31/19 07/31/19 07/31/19 01:48 01:55 04:36 Puncture Site Right radial Left radial ABG pH 7.05 L* 7.26 L ABG pCO2 at Pt Temp > 100 H* 60.4 H ABG pO2 at Pt Temp 103 H 87.2 ABG HCO3 No Result Required. 26.1 ABG O2 Sat (Measured) 94.2 L 95.7 ABG O2 Content 15.5 15.4 ABG Base Excess No Result Required. -1.4 Manjit Test Positive Positive O2 Delivery Device Nrb Bipap Oxygen Flow Rate 100% 100% Vent Mode S/t Vent Rate 20 Mechanical Rate Bipap Pressure Support Vent 20/6 POC Glucometer 137 Urine Color Urine Appearance Urine pH Ur Specific [place] Urine Protein Urine Glucose (UA) Urine Ketones Urine Blood Urine Nitrite Urine Bilirubin Urine Urobilinogen Ur Leukocyte Esterase Urine WBC (Auto) Urine RBC (Auto) Urine Casts (Auto) U Epithel Cells (Auto) 07/31/19 08:40 Puncture Site ABG pH ABG pCO2 at Pt Temp ABG pO2 at Pt Temp ABG HCO3 ABG O2 Sat (Measured) ABG O2 Content ABG Base Excess Manjit Test O2 Delivery Device Oxygen Flow Rate Vent Mode Vent Rate Mechanical Rate Pressure Support Vent POC Glucometer Urine Color Yellow Urine Appearance Turbid Urine pH 5.0 Ur Specific [place] 1.017 Urine Protein 2+ H Urine Glucose (UA) Negative Urine Ketones Negative Urine Blood 3+ H Urine Nitrite Negative Urine Bilirubin Negative Urine Urobilinogen 1.0 Ur Leukocyte Esterase 1+ H Urine WBC (Auto) 12 Urine RBC (Auto) 294 Urine Casts (Auto) 22 U Epithel Cells (Auto) 4.0 Problem List - Problems (1) Lung mass Code(s): R91.8 - OTHER NONSPECIFIC ABNORMAL FINDING OF LUNG FIELD (2) Malignancy Code(s): C80.1 - MALIGNANT (PRIMARY) NEOPLASM, UNSPECIFIED (3) Respiratory distress Code(s): R06.03 - ACUTE RESPIRATORY DISTRESS (4) Obesity Code(s): E66.9 - OBESITY, UNSPECIFIED (5) Hyponatremia Code(s): E87.1 - HYPO-OSMOLALITY AND HYPONATREMIA Assessment/Plan Progressive Lung Cancer - [place] ca Pleural Effusion malignant r/o SVC syndrome Hyponatremia Lactic Acidosis PAF Hyperlipidemia Anemia Pulmonary HTN - NIPPV support - Will contact [facility] for possible PleureX placement - inhaled bronchodilators - rate control - DVT prophylaxis - O2 - inhaled bronchodilators - DNR Dr Granado
--- NOTE | 2019-07-31 13:36 | PN ---
Progress Note, Physician History of Present Illness: Events note. Pt noted to be unresponsive/comatose early this am. CXR reveals increased pleural effusion. Currently he is alert and responsive with vitals stable. Remains afebrile. Family at bedside. - Current Medication List Current Medications: Active Medications Acetaminophen (Tylenol -) 650 mg PO Q4H PRN PRN Reason: TEMP >100.4 Last Admin: 07/27/19 09:31 Dose: 650 mg Albuterol Sulfate (Ventolin Hfa Inhaler -) 2 puff IH Q6H PRN PRN Reason: SHORTNESS OF BREATH Alprazolam (Xanax -) 0.5 mg PO Q8H PRN PRN Reason: ANXIETY Last Admin: 07/30/19 21:52 Dose: 0.5 mg Amoxicillin/Clavulanate Potassium (Augmentin - 875mg Tablet) 1 tab PO BID@0800, 1730 [facility] Last Admin: 07/31/19 09:47 Dose: Not Given Folic Acid (Folic Acid -) 1 mg PO DAILY [facility] Last Admin: 07/31/19 09:49 Dose: Not Given Heparin Sodium (Porcine) (Heparin -) 5,000 unit SQ TID [facility] Last Admin: 07/31/19 07:11 Dose: 5,000 unit Methylprednisolone Sodium Succinate (Solu-Medrol -) 40 mg IVPUSH Q8H-IV [facility] Last Admin: 07/31/19 10:15 Dose: 40 mg Metoprolol Succinate (Toprol Xl -) 50 mg PO DAILY [facility] Last Admin: 07/31/19 09:50 Dose: Not Given Nystatin (Nystatin Oral Suspension -) 500,000 units PO BID [facility] Last Admin: 07/31/19 09:50 Dose: Not Given Pantoprazole Sodium (Protonix -) 40 mg PO DAILY [facility] Last Admin: 07/31/19 09:50 Dose: Not Given Phenytoin Sodium (Dilantin -) 200 mg PO BID [facility] Last Admin: 07/31/19 09:48 Dose: Not Given Polyethylene Glycol (Miralax (For Daily Use) -) 17 gm PO DAILY [facility] Last Admin: 07/31/19 09:49 Dose: Not Given Promethazine HCl (Phenergan -) 12.5 mg PO Q6H PRN PRN Reason: NAUSEA AND/OR VOMITING Last Admin: 07/28/19 08:56 Dose: 12.5 mg Rosuvastatin Calcium (Crestor -) 20 mg PO HS [facility] Last Admin: 07/30/19 21:53 Dose: 20 mg Tamsulosin HCl (Flomax -) 0.4 mg PO DAILY@0830 [facility] Last Admin: 07/31/19 09:47 Dose: Not Given - Objective Vital Signs: Vital Signs Temperature 98.5 F 07/31/19 10:00 Pulse Rate 84 07/31/19 10:00 Respiratory Rate 17 07/31/19 10:00 Blood Pressure 107/60 07/31/19 10:00 O2 Sat by Pulse Oximetry (%) 96 07/31/19 12:10 Constitutional: Yes: No Distress Neck: Yes: Supple Cardiovascular: Yes: Regular Rate and Rhythm Respiratory: Yes: Diminished, Other (NIPPV) Gastrointestinal: Yes: Normal Bowel Sounds, Soft, Abdomen, Obese Genitourinary: Yes: WNL Peripheral Pulses WNL: Yes Integumentary: Yes: WNL Neurological: Yes: Alert Labs: CBC, BMP 07/30/19 08:32 07/30/19 08:32 INR, PTT INR 1.19 (0.83-1.09) H 07/16/19 13:45 Microbiology 07/16/19 13:45 Blood - Peripheral Venous Blood Culture - Final NO GROWTH AFTER 5 DAYS INCUBATION 07/16/19 13:45 Blood - Peripheral Venous Blood Culture - Final NO GROWTH AFTER 5 DAYS INCUBATION 07/19/19 10:45 Pleural Fluid Gram Stain - Final 07/19/19 10:45 Pleural Fluid Body Fluid Culture - Final NO GROWTH OF AEROBIC ORGANISMS AFTER 48 HOURS INCUBATION 07/19/19 10:45 Pleural Fluid Anaerobic Culture - Final NO ANAEROBES WERE ISOLATED 07/19/19 10:45 Pleural Fluid AFB Smear Concentration - Final 07/19/19 10:45 Pleural Fluid Mycobacterial Culture - Preliminary 07/19/19 10:45 Pleural Fluid TINY Preparation - Preliminary 07/19/19 10:45 Pleural Fluid Fungal Culture - Preliminary 07/16/19 14:45 Urine - Urine Clean Catch Urine Culture - Final - ....Imaging Chest X-ray: Report Reviewed Problem List - Problems (1) Lung mass Code(s): R91.8 - OTHER NONSPECIFIC ABNORMAL FINDING OF LUNG FIELD (2) Malignancy Code(s): C80.1 - MALIGNANT (PRIMARY) NEOPLASM, UNSPECIFIED Assessment/Plan Progressive Pulmonary adenoCA Pleural effusion likely malignant - CT removed, now increased r/o SVC syndrome/airway compression Leukocytosis PAF -- Pt was unresponsive early this am, currently alert and responsive -- f/u pending culture results -- continue current antibiotic -- on NIPPV , without acute distress -- Oncology/Pulmonary following - for further management -- continue monitor
[2019-07-31 13:48] LABS: URINE BACTERIA 2+ /hpf (NEGATIVE)
--- NOTE | 2019-07-31 21:59 | EKG ---
Test Reason : Blood Pressure : / mmHG Vent. Rate : 086 BPM Atrial Rate : 086 BPM P-R Int : 160 ms QRS Dur : 104 ms QT Int : 340 ms P-R-T Axes : 064 020 076 degrees QTc Int : 406 ms POOR DATA QUALITY, INTERPRETATION MAY BE ADVERSELY AFFECTED NORMAL SINUS RHYTHM NORMAL ECG WHEN COMPARED WITH ECG OF 22-JUL-2019 08:36, PREMATURE ATRIAL COMPLEXES ARE NO LONGER PRESENT Confirmed by Shelly Heaton ([id number]) on 07/31/2019 9:58:40 PM Referred By: Confirmed By:Shelly Heaton
[2019-07-31] MEDS: ROSUVASTATIN CA 20 MG TABLET (FP) PO SCH (22:42)
[2019-08-01] MEDS ORDERED: DEXTROSE 5%-NORMAL SALINE 1,000 ML IV SCH (02:00)
--- NOTE | 2019-08-01 02:10 | RAPID ---
Physical Examination Vital Signs: Rapid response paged overhead at 1:38AM. call out operator team responded immediately. On arrival patient was non-arousable. Diminished pulses. On BIPAP. Vital Signs Temperature 98.4 F 07/31/19 14:00 Pulse Rate 75 07/31/19 14:00 Respiratory Rate 17 07/31/19 10:00 Blood Pressure 111/63 07/31/19 14:00 O2 Sat by Pulse Oximetry (%) 95 08/01/19 00:25 Gen: Lying in bed comfortable on bilevel. Not responsive to verbal stimulation/ sternal rub. CV: S1S2 heard. Soft heart sounds. no murmurs RESP: B/l breath sounds heard, bipap sounds. CTABL. ABD: Soft NTND. EXTR: No edema PLAN: Dr. Duarte contacted, informed of vital signs & clinical condition. EKG & troponin ordered ABG ordered Maintaining FiO2 100% Case discussed w/ Dr. Granado. Case discussed w/ family at bedside.Update: ABG suggestive of respiratory acidosis, hypercapnea. In the interum, IPAP was increased from 18 to 22, and RR increased to 30BPM. Case discussed with Dr. Black Patient is DNR/ DNI Labs: CBC, BMP 07/30/19 08:32 07/30/19 08:32
[2019-08-01 02:16] LABS: ARTERIAL BLOOD GAS BASE EXCESS -5.4 meq/l (-2-2)
[2019-08-01 02:55] LABS: ALLENS TEST POSITIVE
[2019-08-01 04:13] LABS: ARTERIAL BLOOD GAS pH 7.12 (7.35-7.45)
[2019-08-01 04:14] LABS: ARTERIAL BLOOD GAS PCO2 80.1 mmHg (35-45)
[2019-08-01 04:29] VITALS: BP 121/59; PULSE 88; TEMP 98.3
--- NOTE | 2019-08-01 06:18 | HOSP ---
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 No spontaneous movements present. No response to verbal or tactile stimuli. Pupils dilated and fixed. No response to light. No breath sound auscultated. No cardiac sounds auscultated. Negative carotid or femoral pulses palpated b/l. Patient pronounced at 5:16AM. Patient was DNR/ DNI. Primary team notified. [place] notified. Emotional support provided to family. Visit type - Emergency Visit Emergency Visit: No - New Patient This patient is new to me today: Yes Date on this admission: 08/01/19 - Critical Care Critical Care patient: No
[2019-08-01] MEDS: methylPREDNISolone NA SUCC 40 MG/1 ML VIAL IVPUSH SCH (07:29)
[2019-08-01] MEDS: HEPARIN NA (PORCINE) 5,000 UNITS/ML 1ML VIAL SQ SCH (07:30)
--- NOTE | 2019-08-01 12:51 | EKG ---
Test Reason : Blood Pressure : / mmHG Vent. Rate : 072 BPM Atrial Rate : 072 BPM P-R Int : 170 ms QRS Dur : 114 ms QT Int : 382 ms P-R-T Axes : 063 019 049 degrees QTc Int : 418 ms NORMAL SINUS RHYTHM NORMAL ECG WHEN COMPARED WITH ECG OF 31-JUL-2019 01:58, NO SIGNIFICANT CHANGE WAS FOUND Confirmed by OPAL MATA MD ([id number]) on 08/01/2019 12:51:19 PM Referred By: Confirmed By:OPAL MATA MD
== END 2019-08-01 05:15 | disposition expired | DRG 180 ==
LOC: SUPCPDRO 12:48 → JER 12:48 → JERBED 14:41 → J4S 16:06 → JICU 07-20 21:34 → J4W 07-22 12:38
PROVIDERS: ADMIT Family Medicine; ATTEND Family Medicine
PROC: 0W993ZX Drainage of Right Pleural Cavity, Percutaneous Approach, Diagnostic (ICD-10-PCS; principal; 2019-07-19)
PROC: 0WH93YZ Insertion of Other Device into Right Pleural Cavity, Percutaneous Approach (ICD-10-PCS; 2019-07-19)
PROC: 0BBK3ZX Excision of Right Lung, Percutaneous Approach, Diagnostic (ICD-10-PCS; 2019-07-20)
DX: C34.90 Malignant neoplasm of unspecified part of unspecified bronchus or lung (principal); R40.20 Unspecified coma; E87.1 Hypo-osmolality and hyponatremia; I87.1 Compression of vein; E87.2 Acidosis; I31.3 Pericardial effusion (noninflammatory); J91.0 Malignant pleural effusion; I48.0 Paroxysmal atrial fibrillation; D64.9 Anemia, unspecified; I27.20 Pulmonary hypertension, unspecified; R60.1 Generalized edema; E88.09 Other disorders of plasma-protein metabolism, not elsewhere classified
CPT/HCPCS: 32405; 32552; 32557; 36415; 36600; 70450-TC; 71045-TC-FY; 71260-TC; 71275-TC; 74177-TC; 76380-TC; 76700-TC; 76942; 77012-TC; 80048; 80053; 81003; 82042; 82150; 82465; 82550; 82553; 82803; 82945; 82962; 83605; 83615; 83735; 83880; 83930; 83935; 84100; 84153; 84157; 84300; 84478; 84484; 85025; 85027; 85610; 85730; 86850; 86900; 86901; 87040; 87070; 87075; 87086; 87102; 87116; 87205; 87206; 87210; 88108; 88305-TC; 88341-TC; 88342-TC; 90670; 93005; 93010; 93306-TC; 94640; 94660; 94761; 97116-GP; 97161-GP; 99285-25; C1729; C1769; J1644; J7030